=== PATIENT | female | born 1955 | race Caucasian/White ===

== ENCOUNTER → 2016-06-24 | Outpatient (CLI) | payer OTHER ==
[~2016-06-24] MED LIST: ASPI81TA28 PO; CHOL100010 PO; CLX20 PO; CRG3125 PO; CTP2 PO; GLC5 PO; LEVO100T7 PO; LISI40TA PO; LPT40 PO; METF-384 PO; MULT-190 PO; NTRSLP4 SL; NYSTCRE32 TOP; PLV75 PO; REPA1TAB10 PO; SIMV40TA4 PO
--- NOTE | 2016-06-27 13:48 | MAMMOGRAPHY REPORT ---
BILATERAL DIGITAL SCREENING MAMMOGRAM TOMOSYNTHESIS WITH CAD: 06/24/2016 TECHNIQUE: Breast tomosynthesis in addition to standard 2D mammography was performed. Current study was also evaluated with a Computer Aided Detection (CAD) system. COMPARISON: Comparison is made to exams dated: 06/22/2015 mammogram, 06/17/2013 mammogram, 06/14/2012 mammogram, 06/08/2010 mammogram, 06/19/2014 mammogram, and 06/09/2011 mammogram - [facility]. BREAST COMPOSITION: The tissue of both breasts is almost entirely fatty. FINDINGS: No suspicious masses, calcifications, or areas of architectural distortion are noted in e ither breast. There has been no significant interval change compared to prior exams. Scattered bilat eral benign-appearing calcifications are not significantly changed. IMPRESSION: ACR BI-RADS CATEGORY 2: BENIGN There is no mammographic evidence of malignancy. A 1 year screening mammogram is recommended. The p atient will receive written notification of the results. Approximately 10% of breast cancers are not detected with mammography. A negative mammographic repor t should not delay biopsy if a clinically suggestive mass is present. Loraine Beavers M.D. ah/:06/24/2016 13:46:14 Gas Main Fitter Helper: Shante KIMBROUGH(Jessica)(Talib), [facility] letter sent: Normal 1/2 BI-RADS Code: ACR BI-RADS Category 2: Benign
== END | disposition home or self-care (01) ==
LOC: C.MAMM 08:18
PROVIDERS: ATTEND Student in an Organized Health Care Education/Training Program
DX: Z12.31 Encounter for screening mammogram for malignant neoplasm of breast (principal)

== ENCOUNTER → 2017-06-26 | Outpatient (CLI) | payer OTHER ==
--- NOTE | 2017-06-26 15:40 | MAMMOGRAPHY REPORT ---
BILATERAL DIGITAL SCREENING MAMMOGRAM TOMOSYNTHESIS WITH CAD: 06/26/2017 CLINICAL HISTORY: Routine screening. Patient has no complaints. TECHNIQUE: Breast tomosynthesis in addition to standard 2D mammography was performed. Current study was also evaluated with a Computer Aided Detection (CAD) system. COMPARISON: Comparison is made to exams dated: 06/24/2016 mammogram, 06/22/2015 mammogram, 06/19/2014 ma mmogram, 06/17/2013 mammogram, 06/14/2012 mammogram, and 06/09/2011 mammogram - [facility]. BREAST COMPOSITION: The tissue of both breasts is almost entirely fatty. FINDINGS: No suspicious mass, architectural distortion or cluster of suspicious microcalcifications is seen. There are benign-appearing calcifications most numerous in the medial aspect of each breast . IMPRESSION: ACR BI-RADS CATEGORY 1: NEGATIVE There is no mammographic evidence of malignancy. A 1 year screening mammogram is recommended. The pa tient will receive written notification of the results. Approximately 10% of breast cancers are not detected with mammography. A negative mammographic report should not delay biopsy if a clinically suggestive mass is present. Ángela Enriquez M.D. ay/:06/26/2017 15:13:03 Human Relations Professor: Margie KIMBROUGH(Jessica)(Talib)(BD), [facility] letter sent: Normal 1/2 BI-RADS Code: ACR BI-RADS Category 1: Negative
== END | disposition home or self-care (01) ==
LOC: C.MAMM 10:09
PROVIDERS: ATTEND Student in an Organized Health Care Education/Training Program
DX: I21.4 Non-ST elevation (NSTEMI) myocardial infarction (principal); I25.10 Atherosclerotic heart disease of native coronary artery without angina pectoris

== ENCOUNTER 2019-02-11 11:16 | Inpatient (IN) ==
--- OUTSIDE RECORDS SUMMARY | 2019-02-11 11:19 | External Medical Summary | Continuity of Care Document ---
:1955 Author Name [place], Provider Address Unavailable Unavailable , Care Team Providers Name Role Phone Silke CLEMENTE M.D., Jose De Jesus Santiago Unavailable [email or web address] Vanna Montesinos PA-C Unavailable [email or web address] Jack Carrasco PA-C Unavailable [email or web address] Mahi Cummins M.D. Unavailable [email or web address] CHYNA EDOUARD M.D., Robinson Unavailable Unavailable Unavailable Unavailable Unavailable Problems Diverticulosis of colon (562.10) (K57.30) Stroke syndrome Hyperlipidemia (272.4) (E78.5) Recurrent aphthous ulcer (528.2) (K12.0) Arteriosclerotic cardiovascular disease (ASCVD) (429.2) (I25 .10) Ovarian cyst (620.2) (N83.20) Encounter for routine gynecological examination (V72.31) (Z0 1.419) Obesity (278.00) (E66.9) Hypertension (401.9) (I10) Oral thrush (112.0) (B37.0) Anxiety (300.00) (F41.9) Urinary urgency (788.63) (R39.15) Nephrolithiasis (592.0) (N20.0) Hypothyroidism (244.9) (E03.9) Diabetes mellitus (250.00) (E11.9) Vaginitis (616.10) (N76.0) Allergies and Adverse Reactions No Known Drug Allergies (Allergy) Medications Levothyroxine Sodium 75 MCG Oral Tablet; TAKE 1 TABLET DAILY. EDITH Montesinos Quantity: 90 Refills: 1 hydroCHLOROthiazide 12.5 MG Oral Tablet; TAKE 1 TABLET DAILY. EDITH Montesinos Quantity: 90 Refills: 1 Lisinopril 5 MG Oral Tablet; Take 1 tablet daily ALEXANDRIA Montesinos Quantity: 90 Refills: 1 metFORMIN HCl - 500 MG Oral Tablet; TAKE 1 TABLET TWICE JERROD Y. Refills: 0 Aspirin 325 MG Oral Tablet; Take 1 tablet daily Refills: 0 Simvastatin 40 MG Oral Tablet; TAKE 1 TABLET Bedtime EDITH Brown Quantity: 90 A. Refills: 0 NovoLOG SOLN; Novolog sliding scale (goal of 100-130, correc tion factor of 20) Refills: 0 LORazepam 0.5 MG Oral Tablet; take 1tab 1/2 hour prior to procedure..august repeat dose immediately before procedure EDITH Carrasco Start: 15-Mar-2010 Quantity: 2 A. Refills: 0 BD Pen Needle Mini U/F 31G X 5 MM; USE DIRECTED. Refills: 0 Plavix 75 MG Oral Tablet; TAKE 1 TABLET DAILY. Refills: 0 glipiZIDE 10 MG Oral Tablet; Take 1 tablet twice daily Refills: 0 Lantus 100 UNIT/ML Subcutaneous Solution; INJECT 22 UNIT Bed time Refills: 0 OneTouch UltraSoft Lancets MISC; check blood sugar TID Refills: 0 OneTouch Ultra Blue STRP; TEST 3 TIMES DAILY. Refills: 0 Dexamethasone 0.5 MG/5ML Oral Solution; 5ml po swish a nd spit twice per day Elma Edouard III Start: 05-Apr-2010 Quantity: 300 Refills: 1 Procedures History of Tonsillectomy With Adenoidectomy Status: Completed History of Oral Surgery Tooth Extraction Status: Completed Immunizations Influenza Comments:approximate ly [id number] Diphtheria-Tetanus Toxoids 2-5 LFU Intramuscular Injectable Comments:approximately [id number] Family History Sister Family history of Cardiomyopathy Status: Active Mother Family history of Renal Failure Status: Active Family history of Diabetes Mellitus (V18.0) Status: Active Family history of Hypertension (V17.49) Status: Active Father Family history of Hypertension (V17.49) Status: Active aunt Family history of Breast Cancer (V16.3) Status: Active Social History - Smoking Status Unknown if ever smoked Plan of Treatment Planned Observations Planned Goals not documented Results No Known Results Results not documented
--- NOTE | 2019-02-11 11:46 | CT Scan Report ---
CT head/brain wo con CT DOSE: 537.48 mGy.cm HISTORY: Mental status change. Stroke. Stroke Alert TECHNIQUE: Multiaxial CT images of the head were performed without the use of intravenous contrast. A dose lowering technique was utilized adhering to the principles of ALARA. Comparison: 02/19/2018 Findings: Moderate mucosal thickening all major sinuses. Mastoid sinuses are clear. The calvarium and skull base are intact. The ventricles and sulci are within normal limits. There is no mass, hematoma , midline shift, or acute infarct. Impression: No acute intracranial abnormality. Moderate mucosal thickening of all major sinuses. The above report was generated using voice recognition software. It may contain grammatical, syntax or spelling errors. Electronically signed by: Gurvinder Vee M.D. 02/11/2019 11:45 AM
[2019-02-11 12:00] LABS: Hematocrit (blood only) 37.4 % (37-47); Hemoglobin 12.5 g/dL (12.0-16.0); Mean Corpuscular Hemoglobin 27.3 pg (25-34); Mean Corpuscular Hgb Conc 33.4 g/dL (32-36); Mean Corpuscular Volume 81.7 fL (80-100); Mean Platelet Volume 10.6 fL (7.4-10.4); Platelet Count 156 K/uL (130-400); RDW Coefficient of Variation 15.5 % (11.5-14.5); RDW Standard Deviation 45.9 fL (36.4-46.3); Red Blood Count 4.58 M/uL (4.2-5.4); White Blood Count 6.17 K/uL (4.8-10.8)
--- NOTE | 2019-02-11 12:05 | XRay Report ---
XR chest 1V portable CLINICAL HISTORY: 63 years-old Female presenting with stroke alert. TECHNIQUE: Portable upright AP view of the chest was obtained. COMPARISON: 02/19/2018. FINDINGS: Atherosclerosis of the aortic arch. Cardiac silhouette enlarged. Mild pulmonary vascular prominence. Mildly low lung volumes. No focal opacity. No large effusion or pneumothorax. Osseous structures norm al. Upper abdomen normal. IMPRESSION: 1. Cardiomegaly with mild volume overload. No advanced congestive change or pulmonary edema. No sign ificant change from prior. Electronically signed by: Elliot Lovelace M.D. 02/11/2019 12:03 PM
[2019-02-11 12:11] LABS: iSTAT Creatinine 1.4 mg/dl (0.6-1.3); iSTAT Hemoglobin 12.6 g/dl (12.0-16.0); iSTAT Ionized Calcium 1.16 mmol/l (1.12-1.32); iSTAT Potassium 4.3 mEq/L (3.3-5.0)
[2019-02-11 12:16] LABS: Partial Thromboplastin Ratio 0.9; Partial Thromboplastin Time 24.8 Seconds (21.0-31.0); Prothrombin Time 10.5 Seconds (9.0-12.0)
[2019-02-11 12:17] LABS: Albumin Level 3.2 gm/dl (3.4-5.0); Calcium 8.4 mg/dl (8.5-10.1); Creatinine Clr Calc Pharmacy 45.5 ml/min; Est GFR (African American) 43.6; Est GFR (Non-African American) 37.6; Magnesium 1.9 mg/dl (1.8-2.4); Potassium 4.2 mmol/L (3.5-5.1)
[2019-02-11 12:19] LABS: Albumin Globulin Ratio 0.7 (0.9-2); Bilirubin,Total 0.3 mg/dl (0.2-1); Globulin 4.3 gm/dl (2.5-4.0); Total Protein 7.5 gm/dl (6.4-8.2)
[2019-02-11] MEDS ORDERED: OPTIRAY 320 125ml IV PRN (13:27)
[2019-02-11] MEDS ORDERED: LORazepam 2 MG/4 ML VIAL ONE (13:32)
[2019-02-11] MEDS ORDERED: LORazepam 1 MG/2 ML VIAL IV STA (13:35)
--- NOTE | 2019-02-11 13:42 | CT Scan Report ---
HEAD & NECK CTA HISTORY: aphasia, slurred speech TECHNIQUE: Multiaxial CT images of the head were performed following the intravenous administration o f contrast to evaluate the major cerebral vessels. Multiaxial CT images of the neck were also perform ed following the intravenous administration of contrast to evaluate the major cervical vessels. Maxim um intensity projection images were also obtained. A dose lowering technique was utilized adhering to the principles of ALARA. COMPARISON: Head CT 02/11/2019. FINDINGS: There is no mass, hematoma, midline shift, or acute infarct. Visualized intracranial internal carotid arteries, distal vertebral arteries, and basilar artery are widely patent. There is no significant s tenosis, occlusion, or aneurysm seen within the bilateral ACAs, MCAs, or director digital communications. Moderate mucosal thick ening within the paranasal sinuses. The aortic arch and proximal great vessels are widely patent. There is no significant stenosis, occ lusion, or dissection identified within the bilateral common carotid, internal carotid, or vertebral arteries. Mild calcified plaque within the right carotid bulb. IMPRESSION: 1. No significant stenosis, occlusion, or aneurysm within the [place]. 2. No significant stenosis, occlusion, or dissection identified within the carotid or vertebral arter ies. Electronically signed by: Stalin Rojo M.D. 02/11/2019 1:40 PM
--- NOTE | 2019-02-11 13:42 | CT Scan Report ---
HEAD & NECK CTA HISTORY: aphasia, slurred speech TECHNIQUE: Multiaxial CT images of the head were performed following the intravenous administration o f contrast to evaluate the major cerebral vessels. Multiaxial CT images of the neck were also perform ed following the intravenous administration of contrast to evaluate the major cervical vessels. Maxim um intensity projection images were also obtained. A dose lowering technique was utilized adhering to the principles of ALARA. COMPARISON: Head CT 02/11/2019. FINDINGS: There is no mass, hematoma, midline shift, or acute infarct. Visualized intracranial internal carotid arteries, distal vertebral arteries, and basilar artery are widely patent. There is no significant s tenosis, occlusion, or aneurysm seen within the bilateral ACAs, MCAs, or elevator serviceman. Moderate mucosal thick ening within the paranasal sinuses. The aortic arch and proximal great vessels are widely patent. There is no significant stenosis, occ lusion, or dissection identified within the bilateral common carotid, internal carotid, or vertebral arteries. Mild calcified plaque within the right carotid bulb. IMPRESSION: 1. No significant stenosis, occlusion, or aneurysm within the [place]. 2. No significant stenosis, occlusion, or dissection identified within the carotid or vertebral arter ies. Electronically signed by: Stalin Rojo M.D. 02/11/2019 1:40 PM
[2019-02-11] MEDS ORDERED: GADOBUTROL 65ML VIAL IV PRN (14:16)
--- NOTE | 2019-02-11 14:25 | Magnetic Resonance Report ---
Brain MRI WITH AND WITHOUT CONTRAST HISTORY: expressive aphasia, slurred speech TECHNIQUE: Multiplanar multisequence MRI of the brain was performed both before and after the intrave nous administration of contrast. COMPARISON STUDY: Head CT 02/11/2019. Brain MRI 12/06/2013. FINDINGS: A few small foci of restricted diffusion seen within the left posterior temporal lobe and l eft parietal lobe consistent with acute infarcts. The midline structures are intact. A few small scat tered foci of T2 hyperintensity seen within the periventricular white matter. These are nonspecific b ut favor mild microvascular ischemic change. There is no mass, hematoma, midline shift. Moderate muco anne thickening within the paranasal sinuses. The mastoid air cells are clear. Old lacunar infarcts wi thin the left cerebellar hemisphere. The major vascular flow voids at the skull base are well-maintai danny. No abnormal enhancement. IMPRESSION: A few small scattered foci of restricted diffusion seen within the left posterior temporal lobe and l eft parietal lobe consistent with acute infarcts. Electronically signed by: Stalin Rojo M.D. 02/11/2019 2:24 PM
[2019-02-11] MEDS ORDERED: ASPIRIN CHEW 324 MG PO STA (14:32)
--- NOTE | 2019-02-11 16:28 | History & Physical Report ---
Date of Service February 11, 2019 Assessment & Plan (1) Stroke: Patient presented with expressive aphasia. Head CT negative. CTA of cervical and intracranial vessels showed atherosclerosis without significant stenosis. MRI demonstrated ischemic infarcts of left parietal and temporal lobes. EKG demonstrates normal sinus rhythm. Patient has history of TIAs and takes clopidogrel. ED physician discussed case with Neurology. Thrombolytic therapy not recommended due to low NIH stroke score and improving symptoms. Dual platelet therapy with aspirin and clopidogrel recommended. Continue statin. Continue folic acid for hyperhomocystinemia. Allow permissive hypertension. Monitor for arrhythmias. Check echocardiogram. Outpatient cardiac monitoring. Check lipid profile. PT/OT/MICROFABRICATION ENGINEER MANAGER evaluations. Consult Neurology. (2) Coronary artery disease: No cardiac symptoms. Continue antiplatelet therapy, carvedilol, statin. (3) Hypertension: Usually managed with carvedilol, clonidine, lisinopril. Allow permissive hypertension for 24-48 hours in setting of acute ischemic infarcts. Continue carvedilol. Hold clonidine and lisinopril. Follow blood pressures and titrate therapy. (4) CKD (chronic kidney disease), stage III: Serum creatinine 1.46. Follow. (5) Diabetes mellitus type 2, controlled, with complications: Random glucose in ED 210. Check hemoglobin A1c. Hold oral agents during hospital stay. Lantus/NovoLog per protocol. (6) Dyslipidemia: Check lipid profile. Continue atorvastatin. (7) Hyperhomocysteinemia: Continue folic acid. (8) DVT prophylaxis: Subcutaneous heparin. Ambulate. (9) Discharge planning issues: Anticipated discharge to home. Family Medicine follow-up with Dr. Misti Zavaleta. History of Present Illness Chief Complaint: difficulty speaking Primary Care Provider: Misti Zavaleta DO 63-year-old female followed by Dr. Misti Zavaleta for Family Medicine. History of coronary artery disease with non-ST elevation NE in 2015, TIAs, hypertension, dyslipidemia, hyperhomocystinemia, diabetes mellitus type 2, and other problems as noted below. She was in her usual state of health until this morning around 1015 when she developed difficulty speaking. Symptoms associated with left-sided headache. No visual changes, facial palsy, focal weakness of upper or lower extremities. EMS summoned. Brought to ED for further evaluation and management. Head CT negative. MRI showed ischemic infarcts in left parietal temporal lobe. ED provider discussed case with Neurology who recommended adding aspirin to clopidogrel. Thrombolytic therapy was not recommended. Patient passed dysphagia screen in the ED. Allergies Allergy/AdvReac Type Severity Reaction Status Date / Time amoxicillin [From Augmentin] Allergy Nausea Unverified 02/11/19 12:21 clavulanic acid Allergy Nausea Unverified 02/11/19 12:21 [From Augmentin] Home Medications Home Medications Medication Instructions Recorded Confirmed Type C,E,zinc,copper [id number] 1 cap PO DAILY 02/19/18 02/11/19 History [Ocuvite Adult 50 Plus] atorvastatin 80 mg PO QPM 02/19/18 02/11/19 History carvedilol 3.125 mg PO BID 02/19/18 02/11/19 History cholecalciferol (vitamin D3) 2,000 unit PO DAILY 02/19/18 02/11/19 History [Vitamin D3] citalopram [Celexa] 20 mg PO DAILY 02/19/18 02/11/19 History clonidine HCl 0.2 mg PO BID 02/19/18 02/11/19 History cyanocobalamin (vitamin B-12) 500 mcg PO DAILY 02/19/18 02/11/19 History [Vitamin B-12] folic acid 800 mcg PO DAILY 02/19/18 02/11/19 History glipizide 2.5 mg PO DAILY 02/19/18 02/11/19 History lisinopril 40 mg PO DAILY 02/19/18 02/11/19 History nitroglycerin 0.4 mg SUBLINGUAL DIRECTED 02/19/18 02/11/19 History nystatin-triamcinolone 1 applic TOPICAL BID 02/19/18 02/11/19 History pyridoxine (vitamin B6) [Vitamin 100 mg PO DAILY 02/19/18 02/11/19 History B-6] repaglinide [Prandin] 2 mg PO DAILY 02/19/18 02/11/19 History clopidogrel [Plavix] 75 mg PO DAILY 02/11/19 02/11/19 History empagliflozin [Jardiance] 25 mg PO DAILY 02/11/19 02/11/19 History levothyroxine 100 mcg PO DAILY 02/11/19 02/11/19 History metformin 500 mg PO BID 02/12/19 02/12/19 History Past Med/Surg History Medical History Hyperhomocysteinemia (Chronic) Hypothyroidism (Chronic) Vitamin D deficiency (Chronic) CKD (chronic kidney disease), stage III (Chronic) Dyslipidemia (Chronic) Diabetes mellitus type 2, controlled, with complications (Chronic) Coronary artery disease (Chronic) CVA (cerebral infarction) (Resolved) Hypertension (Chronic) Diabetes (Chronic) Amaurosis fugax of left eye (Resolved 12/06/13) Hypertension (Chronic) NSTEMI (non-ST elevation myocardial infarction) (Resolved) TIA (transient ischemic attack) CVA (cerebral vascular accident) (Resolved) Myocardial infarction (Resolved) Surgical History S/P tonsillectomy (Chronic) Family History Mother Diabetes Hypertension Father Prostate cancer Sister Heart disease cardiomyopathy Social History Preferred Language: Yakut Communication Ability: Impaired [place]man Required: No Beliefs That Will Affect Care: None marital status: Current Living Situation: Spouse current occupational status: unemployed Other Information That Helps Us Care for You: No Feels Safe at Home: Yes Safety Concerns: Feels Safe At This Time Smoking Status: Never smoker Hx Substance Use: No Review of Systems Constitutional: no fever and no weight loss Eyes: no diplopia and no worsening vision Ear, Nose, Mouth, Throat: no nasal congestion, no sinus pain/pressure and no sore throat Respiratory: no cough and no dyspnea Cardiovascular: no chest pain, no palpitations and no edema Gastrointestinal: no nausea, no vomiting, no constipation, no diarrhea/loose stools, no blood in stools and no melena Genitourinary: no dysuria and no hematuria Musculoskeletal: no joint pain and no myalgia Integumentary: no rash and no new lesions Neurologic: as per Subjective / HPI Endocrine: no polydipsia and no polyuria Hematologic / Lymphatic: + easy bruising; no easy bleeding and no lymphadenopathy Physical Exam Constitutional: WD/WN, vitals as above no acute distress Eyes: PERRL, conjunctivae normal, anicteric sclerae ENMT: external ear and nose normal, oropharynx normal Neck: trachea midline, no thyromegaly Respiratory: normal respiratory effort, lungs clear to auscultation Cardiovascular: Rate/Rhythm: regular rate Heart Sounds: + gallop (S4) and + murmur (I/ sys murmur LSB); no cardiac rub Vessels: no JVD Extremities: normal capillary refill; no calf tenderness and no edema Gastrointestinal (Abdomen): normal bowel sounds, soft, nontender, no hepatosplenomegaly Musculoskeletal: Head/Neck/Chest: neck supple Extremities: strength 5/5 throughout; no cyanosis and no clubbing Skin: no rashes, warm and dry Neurologic: alert PERRL, EOMI no facial palsy expressive aphasia no dysarthria tongue midline motor strength upper and lower extremities 5/5 bilaterally patellar DTR's 1/2 bilaterally plantar reflexes downgoing bilaterally no difficulty with finger to nose or heel to aceves bilaterally Psychiatric: Orientation: alert Affect: + anxious affect Lymphatic: no cervical lymphadenopathy Results & Data Vital Signs (Past 12 Hours) Vital Signs Temp Pulse Resp BP Pulse Ox 02/11/19 15:30 61 95 02/11/19 15:24 64 13 182/97 H 97 02/11/19 15:23 98 02/11/19 13:30 58 L 16 02/11/19 13:28 61 29 H 172/82 H 02/11/19 12:30 58 L 23 120/66 93 02/11/19 12:18 60 25 H 120/66 92 02/11/19 11:43 67 22 130/70 95 02/11/19 11:18 36.6 C 68 20 195/94 H 98 Laboratory Results Laboratory Results - last 24 hr 02/11/19 02/11/19 02/11/19 11:32 11:49 11:49 WBC 6.17 RBC 4.58 Hgb 12.5 POC Hgb Hct 37.4 POC Hct MCV 81.7 MCH 27.3 MCHC 33.4 RDW Std Deviation 45.9 RDW Coeff of Doreen 15.5 H Plt Count 156 MPV 10.6 H PT 10.5 INR 1.0 APTT 24.8 PTT Ratio 0.9 POC Sodium Sodium POC Potassium Potassium POC Chloride Chloride Carbon Dioxide POC Total CO2 Anion Gap POC Anion Gap POC BUN BUN Creatinine POC Creatinine Est Cr Clr Drug Dosing Est GFR ( Amer) Est GFR (Non-Af Amer) BUN/Creatinine Ratio Glucose POC Glucose 217 H POC Glucose (other) Calcium POC Ioniz Calcium Tamara Magnesium Total Bilirubin AST ALT Alkaline Phosphatase Total Protein Albumin Globulin Albumin/Globulin Ratio 02/11/19 02/11/19 11:49 11:59 WBC RBC Hgb POC Hgb 12.6 Hct POC Hct 37 MCV MCH MCHC RDW Std Deviation RDW Coeff of Doreen Plt Count MPV PT INR APTT PTT Ratio POC Sodium 141 Sodium 140 POC Potassium 4.3 Potassium 4.2 POC Chloride 108 Chloride 110 H Carbon Dioxide 23 POC Total CO2 23 L Anion Gap 7.0 POC Anion Gap 16.0 POC BUN 25 H BUN 23 H Creatinine 1.46 H POC Creatinine 1.4 H Est Cr Clr Drug Dosing 45.5 Est GFR ( Amer) 43.6 Est GFR (Non-Af Amer) 37.6 BUN/Creatinine Ratio 16.0 Glucose 210 H POC Glucose POC Glucose (other) 217 H Calcium 8.4 L POC Ioniz Calcium Tamara 1.16 Magnesium 1.9 Total Bilirubin 0.3 AST 14 L ALT 23 Alkaline Phosphatase 84 Total Protein 7.5 Albumin 3.2 L Globulin 4.3 H Albumin/Globulin Ratio 0.7 L Diagnostic Findings PORTABLE CHEST X-RAY XR chest 1V portable FINDINGS: Atherosclerosis of the aortic arch. Cardiac silhouette enlarged. Mild pulmonary vascular prominence. Mildly low lung volumes. No focal opacity. No large effusion or pneumothorax. Osseous structures normal. Upper abdomen normal. IMPRESSION: 1. Cardiomegaly with mild volume overload. No advanced congestive change or pulmonary edema. No significant change from prior. Electronically signed by: Elliot Lovelace M.D. 02/11/2019 12:[address] HEAD Findings: Moderate mucosal thickening all major sinuses. Mastoid sinuses are clear. The calvarium and skull base are intact. The ventricles and sulci are within normal limits. There is no mass, hematoma, midline shift, or acute infarct. Impression: No acute intracranial abnormality. Moderate mucosal thickening of all major sinuses. Electronically signed by: Gurvinder Vee M.D. 02/11/2019 11:45 AM HEAD & NECK CTA FINDINGS: There is no mass, hematoma, midline shift, or acute infarct. Visualized intracranial internal carotid arteries, distal vertebral arteries, and basilar artery are widely patent. There is no significant stenosis, occlusion, or aneurysm seen within the bilateral ACAs, MCAs, or html web developer. Moderate mucosal thickening within the paranasal sinuses. The aortic arch and proximal great vessels are widely patent. There is no significant stenosis, occlusion, or dissection identified within the bilateral common carotid, internal carotid, or vertebral arteries. Mild calcified plaque within the right carotid bulb. IMPRESSION: 1. No significant stenosis, occlusion, or aneurysm within the [place]. 2. No significant stenosis, occlusion, or dissection identified within the carotid or vertebral arteries. Electronically signed by: Stalin Rojo M.D. 02/11/2019 1:40 PM MRI BRAIN FINDINGS: A few small foci of restricted diffusion seen within the left posterior temporal lobe and left parietal lobe consistent with acute infarcts. The midline structures are intact. A few small scattered foci of T2 hyperintensity seen w ithin the periventricular white matter. These are nonspecific but favor mild microvascular ischemic change. There is no mass, hematoma, midline shift. Moderate mucosal thickening within the paranasal sinuses. The mastoid air cells are clear. Old lacunar infarcts within the left cerebellar hemisphere. The major vascular flow voids at the skull base are well-maintained. No abnormal enhancement. IMPRESSION: A few small scattered foci of restricted diffusion seen within the left posterior temporal lobe and left parietal lobe consistent with acute infarcts. Electronically signed by: Stalin Rojo M.D. 02/11/2019 2:24 PM ECG Additional Comments: EKG performed at 11:23 reviewed and demonstrated NSR at 70 / min, no acute changes. Code Status & VTE Plan Code Status No living will. Full code. VTE Prophylaxis Plan VTE Prophylaxis will be ordered: Yes (1) Stroke CVA mechanism: unspecified Qualified Code(s): I63.9 - Cerebral infarction, unspecified
[2019-02-11] MEDS ORDERED: PHARMACIST DISCHARGE MED REC CONSULT PRN (16:37)
[2019-02-11] MEDS ORDERED: NITROGLYCERIN SL 0.4 MG/TAB TAB SL PRN (16:37)
[2019-02-11] MEDS ORDERED: ACETAMINOPHEN 325 MG TAB PO PRN (16:37)
[2019-02-11] MEDS ORDERED: ONDANSETRON INJ 2 MG/ML 2 ML VIAL IV PRN (16:37)
--- NOTE | 2019-02-11 16:50 | Neurology Consultation ---
Date of Consultation February 11, 2019 Assessment & Plan (1) Expressive aphasia: 1. MRI brain- appears to be embolic strokes small scattered left occiptal/parital 2. CTA head and neck- no signifcant stenosis 3. TTE- not resulted 4. optimize HTN, HLD, DM LDL <70 5. no history of afib will need out patient ZIO 6. aspirin 81 mg and plavix 75 mg daily for now 7. PT/OT speech for discharge needs. further recs to follow Supervising Physician Co-Signing Physician Notes I have seen and discussed above patient with Dr Lita Arechiga, neurology. PT seen and examined. Hx of OS amaurosis approx 2013. Episode of sudden amnesia with confusion 1 year ago. 2 weeks ago suddenly confused for several minutes. Today sudden expressive language dysfunction. Hx of Rheumatic Fever. Exam notable for isolated word finding difficulty. No field cut, facial asymm or weakness, drift. Imp Cortical infarction suspicious for embolism. P Echo with bubble, monitoring, asa and Plavix at present. Risk mod. EEG, query TGA, confusional episodes. QUITA Arechiga MD History of Present Illness Reason for Consultation: CVA Requesting Physician: Pradip Manzo MD Attending Physician: Pradip Manzo MD History of Present Illness Brisa is a 63 year old female with a PMH DM, HTN, NSTEMI, who was at [employer] for breakfast and started having issues with getting her words out. She states it was very frustrating because she couldn't tell them what she wanted to talk about. Her states there was not one sided weakness, facial droop vision changes. She does not have a history of afib. The symptoms started to resolve in the ED but she was still having some word finding issues. denies CP, SOB, abdominal pain, vision changes, facial droop, N, V, swallowing issues. Allergies Allergy/AdvReac Type Severity Reaction Status Date / Time amoxicillin [From Augmentin] Allergy Nausea Unverified 02/11/19 12:21 clavulanic acid Allergy Nausea Unverified 02/11/19 12:21 [From Augmentin] Home Medications Home Medications Medication Instructions Recorded Confirmed Type C,E,zinc,copper [id number] 1 cap PO DAILY 02/19/18 02/11/19 History [Ocuvite Adult 50 Plus] atorvastatin 80 mg PO QPM 10/29/18 10/21/19 History carvedilol 3.125 mg PO BID 02/19/18 02/11/19 History cholecalciferol (vitamin D3) 2,000 unit PO DAILY 02/19/18 02/11/19 History [Vitamin D3] citalopram [Celexa] 20 mg PO DAILY 02/19/18 02/11/19 History clonidine HCl 0.2 mg PO BID 02/19/18 02/11/19 History cyanocobalamin (vitamin B-12) 500 mcg PO DAILY 02/19/18 02/11/19 History [Vitamin B-12] folic acid 800 mcg PO DAILY 02/19/18 02/11/19 History glipizide 2.5 mg PO DAILY 02/19/18 02/11/19 History lisinopril 40 mg PO DAILY 02/19/18 02/11/19 History nitroglycerin 0.4 mg SUBLINGUAL DIRECTED 02/19/18 02/11/19 History nystatin-triamcinolone 1 applic TOPICAL BID 02/19/18 02/11/19 History pyridoxine (vitamin B6) [Vitamin 100 mg PO DAILY 02/19/18 02/11/19 History B-6] repaglinide [Prandin] 2 mg PO DAILY 02/19/18 02/11/19 History clopidogrel [Plavix] 75 mg PO DAILY 02/11/19 02/11/19 History empagliflozin [Jardiance] 25 mg PO DAILY 02/11/19 02/11/19 History levothyroxine 100 mcg PO DAILY 02/11/19 02/11/19 History metformin 500 mg PO BID 02/11/19 02/11/19 History Patient History Medical History Hyperhomocysteinemia (Chronic) Hypothyroidism (Chronic) Vitamin D deficiency (Chronic) CKD (chronic kidney disease), stage III (Chronic) Dyslipidemia (Chronic) Diabetes mellitus type 2, controlled, with complications (Chronic) Coronary artery disease (Chronic) CVA (cerebral infarction) (Resolved) Hypertension (Chronic) Diabetes (Chronic) Amaurosis fugax of left eye (Resolved 12/06/13) Hypertension (Chronic) NSTEMI (non-ST elevation myocardial infarction) (Resolved) TIA (transient ischemic attack) CVA (cerebral vascular accident) (Resolved) Myocardial infarction (Resolved) Family History Other No pertinent family history Social History Preferred Language: Sammarinese Communication Ability: Impaired Clinical Research Technician Required: No Beliefs That Will Affect Care: None marital status: Current Living Situation: Spouse current occupational status: unemployed Other Information That Helps Us Care for You: No Feels Safe at Home: Yes Safety Concerns: Feels Safe At This Time Smoking Status: Never smoker Hx Substance Use: No Physical Exam Physical Exam: Physical Exam: Constitutional: appearance over nourished, healthy Ears, Nose, Mouth and Throat: mucous membranes moist, no injection and skin normal, eyes normal Cardiovascular: normal S-1 and S-2 and regular rate and rhythm Respiratory: clear to auscultation (CTA) Musculoskeletal: no peripheral edema and good distal pulses Skin: no stigmata of neurocutaneous disease noted and normal and intact Eyes: extraocular muscles intact (EOMI) and pupils equal, round and reactive to light (PERRL) NEUROLOGIC EXAMINATION: Mental status: Alert and interactive Oriented to full date and location, 2019, [facility], identifies pen, stethoscope, button, closes eye stick out tongue points to ceiling with right hand Oriented to person Speech some expressive aphasia with spontaneous conversation Cranial Nerves smile eye brow raise symmetric Reflexes: Deep tendon reflexes were symmetrical and graded 2/5. Sensory: no sensory deficits, light and cool touch Coordination: finger to nose, rapid hand movement aceves to heel intact Gait/Stance: Posture sitting up in bed Motor: Negative for pronator drift of out stretched arms with eyes closed. 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 bilaterally hip flex patellar plantar flex ext 5/5 Results & Data Vital Signs (Past 12 Hours) Vital Signs Temp Pulse Resp BP Pulse Ox 02/11/19 15:30 61 95 02/11/19 15:24 64 13 182/97 H 97 02/11/19 15:23 98 02/11/19 13:30 58 L 16 02/11/19 13:28 61 29 H 172/82 H 02/11/19 12:30 58 L 23 120/66 93 02/11/19 12:18 60 25 H 120/66 92 02/11/19 11:43 67 22 130/70 95 02/11/19 11:18 36.6 C 68 20 195/94 H 98 Laboratory Results Abnormal lab results 02/11/19 02/11/19 02/11/19 Range/Units 11:32 11:49 11:49 RDW Coeff of Doreen 15.5 H (11.5-14.5) % MPV 10.6 H (7.4-10.4) fL Chloride 110 H (98-107) mmol/L POC Total CO2 (24-31) mEq/l POC BUN (7-18) mg/dl BUN 23 H (7-18) mg/dl Creatinine 1.46 H (0.6-1.2) mg/dl POC Creatinine (0.6-1.3) mg/dl Glucose 210 H (70-99) mg/dl POC Glucose 217 H (70-99) POC Glucose (other) (70-99) mg/dl Calcium 8.4 L (8.5-10.1) mg/dl AST 14 L (15-37) U/L Albumin 3.2 L (3.4-5.0) gm/dl Globulin 4.3 H (2.5-4.0) gm/dl Albumin/Globulin Ratio 0.7 L (0.9-2) 02/11/19 Range/Units 11:59 RDW Coeff of Doreen (11.5-14.5) % MPV (7.4-10.4) fL Chloride (98-107) mmol/L POC Total CO2 23 L (24-31) mEq/l POC BUN 25 H (7-18) mg/dl BUN (7-18) mg/dl Creatinine (0.6-1.2) mg/dl POC Creatinine 1.4 H (0.6-1.3) mg/dl Glucose (70-99) mg/dl POC Glucose (70-99) POC Glucose (other) 217 H (70-99) mg/dl Calcium (8.5-10.1) mg/dl AST (15-37) U/L Albumin (3.4-5.0) gm/dl Globulin (2.5-4.0) gm/dl Albumin/Globulin Ratio (0.9-2) Diagnostic Findings CT head-No acute intracranial abnormality. Moderate mucosal thickening of all major sinuses. CTA head and neck- No significant stenosis, occlusion, or aneurysm within the [place]. No significant stenosis, occlusion, or dissection identified within the carotid or vertebral arteries. MRI brain -A few small scattered foci of restricted diffusion seen within the left posterior temporal lobe and left parietal lobe consistent with acute infarcts.
--- NOTE | 2019-02-11 17:22 | Emergency Department Note ---
Entered by Gisela Evans acting as a scribe for History of Present Illness General Chief complaint: Stroke/CVA Symptoms Stated complaint: MEMORY LAPSE, STROKE HISTORY Time Seen by Provider: 02/11/19 11:24 Source: patient and family History of Present Illness Onset (ago): hour(s) (1 hour 20 minutes ago) Location: head Pain Consistency: + other (episode) Maximum Pain Intensity: 5 Quality: + other (stroke symptoms) Associated symptoms: + denies other symptoms (difficulty walking), + headaches and + other (gargled speech); no cough and no fever/chills (feve) The patient is a 63 year old male w/ PMHx DM, TIA, MA, and HTN who presents to the ED w/ CC of an episode stroke symptoms starting 1 hour and 20 minutes ago at 10:10 AM. The patients states that they were out to [employer] for breakfast and she was getting ready to take her medications. He states that she was trying to tell her something about their daughter, but she was speaking gargled. The patient notes that she knew what she wanted to say, but couldnt get what she wanted to say out. The patient notes that since then her speech has resolved. The patient complains of a headache. The patient notes that she started Jardiance a week ago. She notes that she is on Plavix. The patient denies cough, fevers, difficulty walking, and recent falls. Home Medications Home Medications Medication Instructions Recorded Confirmed Type C,E,zinc,copper [id number] 1 cap PO DAILY 02/19/18 02/11/19 History [Ocuvite Adult 50 Plus] atorvastatin 80 mg PO QPM 02/19/18 02/11/19 History carvedilol 3.125 mg PO BID 02/19/18 02/11/19 History cholecalciferol (vitamin D3) 2,000 unit PO DAILY 02/19/18 02/11/19 History [Vitamin D3] citalopram [Celexa] 20 mg PO DAILY 02/19/18 02/11/19 History clonidine HCl 0.2 mg PO BID 02/19/18 02/11/19 History cyanocobalamin (vitamin B-12) 500 mcg PO DAILY 02/19/18 02/11/19 History [Vitamin B-12] folic acid 800 mcg PO DAILY 02/19/18 02/11/19 History glipizide 2.5 mg PO DAILY 02/19/18 02/11/19 History lisinopril 40 mg PO DAILY 02/19/18 02/11/19 History nitroglycerin 0.4 mg SUBLINGUAL DIRECTED 02/19/18 02/11/19 History nystatin-triamcinolone 1 applic TOPICAL BID 02/19/18 02/11/19 History pyridoxine (vitamin B6) [Vitamin 100 mg PO DAILY 02/19/18 02/11/19 History B-6] repaglinide [Prandin] 2 mg PO DAILY 02/19/18 02/11/19 History clopidogrel [Plavix] 75 mg PO DAILY 02/11/19 02/11/19 History empagliflozin [Jardiance] 25 mg PO DAILY 02/11/19 02/11/19 History levothyroxine 100 mcg PO DAILY 02/11/19 02/11/19 History metformin 500 mg PO BID 02/11/19 02/11/19 History Allergies Allergy/AdvReac Type Severity Reaction Status Date / Time amoxicillin [From Augmentin] Allergy Nausea Unverified 02/11/19 12:21 clavulanic acid Allergy Nausea Unverified 02/11/19 12:21 [From Augmentin] Past Med/Surg History Medical History Hyperhomocysteinemia (Chronic) Hypothyroidism (Chronic) Vitamin D deficiency (Chronic) CKD (chronic kidney disease), stage III (Chronic) Dyslipidemia (Chronic) Diabetes mellitus type 2, controlled, with complications (Chronic) Coronary artery disease (Chronic) CVA (cerebral infarction) (Resolved) Hypertension (Chronic) Diabetes (Chronic) Amaurosis fugax of left eye (Resolved 12/06/13) Hypertension (Chronic) NSTEMI (non-ST elevation myocardial infarction) (Resolved) TIA (transient ischemic attack) CVA (cerebral vascular accident) (Resolved) Myocardial infarction (Resolved) Family History Other No pertinent family history Social History Preferred Language: [place] Communication Ability: Impaired 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 and A total of 10 systems reviewed and were otherwise negative Physical Exam Vital Signs Vital Signs - 24 hr 02/11/19 11:18 02/11/19 11:43 02/11/19 12:18 Temperature 36.6 C Temperature Source Oral Sepsis Recent Fever Within 48 Hours No Sepsis New/Unexplained Change in Mental Status No Sepsis Action Taken by Nursing No Action Required Pulse Rate 68 67 60 Pulse Rate from SpO2 Sensor 67 59 L Respiratory Rate 20 22 25 H Blood Pressure 195/94 H 130/70 120/66 Blood Pressure Mean 127 90 84 Pulse Oximetry 98 95 92 Oxygen Delivery Method Room Air 02/11/19 12:30 02/11/19 13:28 02/11/19 13:30 Temperature Temperature Source Sepsis Recent Fever Within 48 Hours Sepsis New/Unexplained Change in Mental Status Sepsis Action Taken by Nursing Pulse Rate 58 L 61 58 L Pulse Rate from SpO2 Sensor 59 L Respiratory Rate 23 29 H 16 Blood Pressure 120/66 172/82 H Blood Pressure Mean 84 112 Pulse Oximetry 93 Oxygen Delivery Method GENERAL: Well appearing, well nourished, NAD, non-toxic. Wearing glasses. EYE EXAM: Normal conjunctiva. PERRL, no anisocoria and EOM's grossly intact w/o pain. OROPHARYNX: Moist mucous membranes. Grossly normal dentition. NECK: Supple, no nuchal rigidity, no adenopathy, non-tender. No signs of meningismus. LUNGS: Clear to auscultation. Normal chest wall mechanics. HEART: NSR, no MRG. ABDOMEN: Abdomen soft, non-tender, normo-active bowel sounds, no masses, no rebound or guarding. BACK: No CVA TTP. SKIN: No rashes and no bruising. UPPER EXTREMITIES: Upper extremities are grossly normal. LOWER EXTREMITIES: No pitting edema. No calf pain. NEURO EXAM: A&O x3, cranial nerves II-XII grossly intact, normal speech, 5/5 strength throughout, no sensory deficits,good finger to nose, no pronator drift, moves all 4 extremities on command w/o issue. Course 1129: Past medical records reviewed. The patient was evaluated in room A1. A complete history and physical exam was performed. 1309: I reevaluated the patient and she is doing well. She has not had a recurrence of her symptoms. 1331: I discussed the patient's case with Dr. Mitchell- Neurology. She agrees with the treatment plan and recommends a baby aspirin if imaging as negative. She recommends bringing the patient in. 1336: I went to reevaluate the patient, but she was at MRI. 1442: I reevaluated the patient and updated her on her test results. I discussed the treatment plan with her. She verbally agrees and understands. 1500: I [facility] the [facility] He will evaluate the patient for further management. Administered Medications Gadobutrol (Gadavist 65ml) 9.5 ml IV ONCE PRN PRN Reason: Interaction Checking Stop: 02/15/19 14:15 Last Admin: 02/11/19 14:16 Dose: 9.5 ml Documented by: [id number] Ioversol (Optiray 320 125ml) 120 ml IV ONCE PRN PRN Reason: Interaction Checking Stop: 02/15/19 13:26 Last Admin: 02/11/19 13:27 Dose: 120 ml Documented by: [id number] Discontinued Medications Aspirin (Aspirin) 324 mg PO NOW STA Stop: 02/11/19 14:33 Last Admin: 02/11/19 15:21 Dose: 324 mg Documented by: [id number] Lorazepam (Ativan) 1 mg in 2 mls @ 2 mls/min IV NOW STA Stop: 02/11/19 13:36 Last Admin: 02/11/19 13:43 Dose: 2 mls/min Documented by: [id number] Lorazepam (Ativan) Confirm Administered Dose 2 mg .ROUTE .STK-MED ONE Stop: 02/11/19 13:33 Last Admin: 02/11/19 14:25 Dose: Not Given Documented by: [id number] Medical Decision Making Differential Diagnosis Differential Diagnosis includes but is not limited to ischemic Stroke, hemorrhagic stroke, bells palsy, mass, neoplasm, migraine headache, seizure, subarachnoid hemorrhage, TIA, and transient global amnesia. Medical Records Attestation: I reviewed the patient's medical records. Home Medications Current Medication List: was personally reviewed by me Laboratory Data Attestation: I reviewed the patient's lab results. Result diagrams: 02/11/19 11:49 02/11/19 11:49 Lab Results 02/11/19 02/11/19 02/11/19 Range/Units 11:32 11:49 11:49 WBC 6.17 (4.8-10.8) K/uL RBC 4.58 (4.2-5.4) M/uL Hgb 12.5 (12.0-16.0) g/dL POC Hgb (12.0-16.0) g/dl Hct 37.4 (37-47) % POC Hct (37-47) % MCV 81.7 (80-100) fL MCH 27.3 (25-34) pg MCHC 33.4 (32-36) g/dL RDW Std Deviation 45.9 (36.4-46.3) fL RDW Coeff of Doreen 15.5 H (11.5-14.5) % Plt Count 156 (130-400) K/uL MPV 10.6 H (7.4-10.4) fL PT 10.5 (9.0-12.0) Seconds INR 1.0 (0.9-1.1) APTT 24.8 (21.0-31.0) Seconds PTT Ratio 0.9 POC Sodium (135-144) mEq/L Sodium (136-145) mmol/L POC Potassium (3.3-5.0) mEq/L Potassium (3.5-5.1) mmol/L POC Chloride (101-112) mEq/L Chloride (98-107) mmol/L Carbon Dioxide (21-32) mmol/L POC Total CO2 (24-31) mEq/l Anion Gap (3-11) POC Anion Gap (16-25) mmol/L POC BUN (7-18) mg/dl BUN (7-18) mg/dl Creatinine (0.6-1.2) mg/dl POC Creatinine (0.6-1.3) mg/dl Est Cr Clr Drug Dosing ml/min Est GFR ( Amer) Est GFR (Non-Af Amer) BUN/Creatinine Ratio (10-20) Glucose (70-99) mg/dl POC Glucose 217 H (70-99) POC Glucose (other) (70-99) mg/dl Calcium (8.5-10.1) mg/dl POC Ioniz Calcium Tamara (1.12-1.32) mmol/l Magnesium (1.8-2.4) mg/dl Total Bilirubin (0.2-1) mg/dl AST (15-37) U/L ALT (12-78) U/L Alkaline Phosphatase (45-117) U/L Total Protein (6.4-8.2) gm/dl Albumin (3.4-5.0) gm/dl Globulin (2.5-4.0) gm/dl Albumin/Globulin Ratio (0.9-2) 02/11/19 02/11/19 Range/Units 11:49 11:59 WBC (4.8-10.8) K/uL RBC (4.2-5.4) M/uL Hgb (12.0-16.0) g/dL POC Hgb 12.6 (12.0-16.0) g/dl Hct (37-47) % POC Hct 37 (37-47) % MCV (80-100) fL MCH (25-34) pg MCHC (32-36) g/dL RDW Std Deviation (36.4-46.3) fL RDW Coeff of Doreen (11.5-14.5) % Plt Count (130-400) K/uL MPV (7.4-10.4) fL PT (9.0-12.0) Seconds INR (0.9-1.1) APTT (21.0-31.0) Seconds PTT Ratio POC Sodium 141 (135-144) mEq/L Sodium 140 (136-145) mmol/L POC Potassium 4.3 (3.3-5.0) mEq/L Potassium 4.2 (3.5-5.1) mmol/L POC Chloride 108 (101-112) mEq/L Chloride 110 H (98-107) mmol/L Carbon Dioxide 23 (21-32) mmol/L POC Total CO2 23 L (24-31) mEq/l Anion Gap 7.0 (3-11) POC Anion Gap 16.0 (16-25) mmol/L POC BUN 25 H (7-18) mg/dl BUN 23 H (7-18) mg/dl Creatinine 1.46 H (0.6-1.2) mg/dl POC Creatinine 1.4 H (0.6-1.3) mg/dl Est Cr Clr Drug Dosing 45.5 ml/min Est GFR ( Amer) 43.6 Est GFR (Non-Af Amer) 37.6 BUN/Creatinine Ratio 16.0 (10-20) Glucose 210 H (70-99) mg/dl POC Glucose (70-99) POC Glucose (other) 217 H (70-99) mg/dl Calcium 8.4 L (8.5-10.1) mg/dl POC Ioniz Calcium Tamara 1.16 (1.12-1.32) mmol/l Magnesium 1.9 (1.8-2.4) mg/dl Total Bilirubin 0.3 (0.2-1) mg/dl AST 14 L (15-37) U/L ALT 23 (12-78) U/L Alkaline Phosphatase 84 (45-117) U/L Total Protein 7.5 (6.4-8.2) gm/dl Albumin 3.2 L (3.4-5.0) gm/dl Globulin 4.3 H (2.5-4.0) gm/dl Albumin/Globulin Ratio 0.7 L (0.9-2) Imaging Data Radiologist's Impression: Radiology results as stated below per my review and the radiologist's interpretation: XR chest 1V portable CLINICAL HISTORY: 63 years-old Female presenting with stroke alert. TECHNIQUE: Portable upright AP view of the chest was obtained. COMPARISON: 02/19/2018. FINDINGS: Atherosclerosis of the aortic arch. Cardiac silhouette enlarged. Mild pulmonary vascular prominence. Mildly low lung volumes. No focal opacity. No large effusion or pneumothorax. Osseous structures normal. Upper abdomen normal. IMPRESSION: 1. Cardiomegaly with mild volume overload. No advanced congestive change or pulmonary edema. No significant change from prior. Electronically signed by: Elliot Lovelace M.D. 02/11/2019 12:[address] head/brain wo con CT DOSE: 537.48 mGy.cm HISTORY: Mental status change. Stroke. Stroke Alert TECHNIQUE: Multiaxial CT images of the head were performed without the use of intravenous contrast. A dose lowering technique was utilized adhering to the principles of ALARA. Comparison: 02/19/2018 Findings: Moderate mucosal thickening all major sinuses. Mastoid sinuses are clear. The calvarium and skull base are intact. The ventricles and sulci are within normal limits. There is no mass, hematoma, midline shift, or acute infarct. Impression: No acute intracranial abnormality. Moderate mucosal thickening of all major sinuses. The above report was generated using voice recognition software. It may contain grammatical, syntax or spelling errors. Electronically signed by: Gurvinder Vee M.D. 02/11/2019 11:45 AM HEAD & NECK CTA HISTORY: aphasia, slurred speech TECHNIQUE: Multiaxial CT images of the head were performed following the intravenous administration of contrast to evaluate the major cerebral vessels. Multiaxial CT images of the neck were also performed following the intravenous administration of contrast to evaluate the major cervical vessels. Maximum int ensity projection images were also obtained. A dose lowering technique was utilized adhering to the principles of ALARA. COMPARISON: Head CT 02/11/2019. FINDINGS: There is no mass, hematoma, midline shift, or acute infarct. Visualized intracranial internal carotid arteries, distal vertebral arteries, and basilar artery are widely patent. 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 Moderate mucosal thickening within the paranasal sinuses. The aortic arch and proximal great vessels are widely patent. There is no significant stenosis, occlusion, or dissection identified within the bilateral common carotid, internal carotid, or vertebral arteries. Mild calcified plaque within the right carotid bulb. IMPRESSION: 1. No significant stenosis, occlusion, or aneurysm within the [place] of [place]. 2. No significant stenosis, occlusion, or dissection identified within the carotid or vertebral arteries. Electronically signed by: Stalin Rojo M.D. 02/11/2019 1:40 PM Brain MRI WITH AND WITHOUT CONTRAST HISTORY: expressive aphasia, slurred speech TECHNIQUE: Multiplanar multisequence MRI of the brain was performed both before and after the intravenous administration of contrast. COMPARISON STUDY: Head CT 02/11/2019. Brain MRI 12/06/2013. FINDINGS: A few small foci of restricted diffusion seen within the left posterior temporal lobe and left parietal lobe consistent with acute infarcts. The midline structures are intact. A few small scattered foci of T2 hyperintensity seen within the periventricular white matter. These are nonspecific but favor mild microvascular ischemic change. There is no mass, hematoma, midline shift. Moderate mucosal thickening within the paranasal sinuses. The mastoid air cells are clear. Old lacunar infarcts within the left cerebellar hemisphere. The major vascular flow voids at the skull base are well- maintained. No abnormal enhancement. IMPRESSION: A few small scattered foci of restricted diffusion seen within the left posterior temporal lobe and left parietal lobe consistent with acute infarcts. Electronically signed by: Stalin Rojo M.D. 02/11/2019 2:24 PM ECG Data Attestation: I personally reviewed and interpreted this ECG as follows: Indication: other (stroke like symptoms) Rate (beats per minute): 66 Rhythm: normal sinus Findings: + other (normal axis, normal intervals); no ST depression, no ST el evation and no acute ischemic change Blood Pressure Blood Pressure Findings: Elevated blood pressure Blood Pressure Disposition: further management by hospitalist ARABELLA Narrative The patient is a 63 year old male w/ PMHx DM, TIA, MA, and HTN who presents to the ED w/ CC of an episode stroke symptoms starting 1 hour and 20 minutes ago at 10:10 AM. Patient was seen and evaluated at the bedside. The patient has been having what sounds like self describes stuttering TIA symptoms with expressive aphasia as well as some slurred speech. Patient is currently asymptomatic at the bedside to no code stroke was paged overhead. The patient currently is awake alert and oriented follows commands. Patient is able to answer questions about with the basic arithmetic and objects in the room. The patient did have blood work completed along with tducw-ny-wdro sugar. Xnoub-oy-tgrz sugar was 210. The patient does not take insulin. The patient did have the rest of her blood work completed a EKG which shows normal sinus rhythm. CT the head was negative. Gi andrea the initial concern I still did order advanced imaging and did speak with 1 of our neurologist who recommended getting the CT angios as well as the MRI of the brain with and without contrast. CT angios were negative. MR brain was positive for restricted diffusion within the parietal and occipital areas. Patient was ordered a full dose aspirin. I did speak the on-call hospitalist who agreed to further evaluate treat the patient. I did again reevaluate the patient the patient again is without any slurred speech or excessive aphasia at this time. I did reiterate to the patient that if she does develop any persistent symptoms or if she has worsening symptoms i.e. sensory deficits or we akness she needs to notify someone immediately. Patient was subsequently admitted to the medicine service. Impression & Plan Expressive aphasia, Stroke, Hyperglycemia, Hypocalcemia Discharge Plan Visit Data *Final* Discharge Date/Time: 02/11/19 16:11 Chief Complaint: Stroke/CVA Symptoms Stated Complaint: MEMORY LAPSE, STROKE HISTORY ED Provider: Homero Fox Discharge Problem: Expressive aphasia, Stroke, Hyperglycemia, Hypocalcemia Patient Disposition: Admitted As Inpatient Discharge Instructions Interventions: ED Discharge Assessment Last Done: 02/11/19 16:11 Discharge Problem: Stroke Qualifiers: CVA mechanism: unspecified Qualified Code(s): I63.9 - Cerebral infarction, unspecified The scribe's documentation has been prepared under my direction and personally reviewed by me in its entirety. I confirm that the note above accurately reflects all work, treatment, procedures, and medical decision making performed by me.
[2019-02-11] MEDS: CARVEDILOL 3.125 MG TAB PO SCH (20:38)
[2019-02-11] MEDS: HEPARIN SOD 5,000 UNIT/0.5 ML VIAL SQ SCH (20:43)
[2019-02-11] MEDS ORDERED: ATORVASTATIN 40 MG TAB PO SCH (21:00)
[2019-02-12] MEDS: HEPARIN SOD 5,000 UNIT/0.5 ML VIAL SQ SCH ×2 (05:44→13:33)
[2019-02-12] MEDS ORDERED: LEVOTHYROXINE SODIUM 100 MCG TABLET PO SCH (06:30)
[2019-02-12 07:21] LABS: Basophils # (auto) 0.03 K/uL (0-0.2); Basophils % (auto) 0.5 %; Hematocrit (blood only) 36.3 % (37-47); Hemoglobin 11.7 g/dL (12.0-16.0); Lymphocytes # (auto) 2.19 K/uL (1.2-3.4); Lymphocytes % (auto) 38.1 %; Mean Corpuscular Hemoglobin 26.3 pg (25-34); Mean Corpuscular Hgb Conc 32.2 g/dL (32-36); Mean Corpuscular Volume 81.6 fL (80-100); Mean Platelet Volume 10.3 fL (7.4-10.4); Monocytes # (auto) 0.34 K/uL (0.11-0.59); Monocytes % (auto) 5.9 %; Neutrophils # (auto) 2.79 K/uL (1.4-6.5); Neutrophils % (auto) 48.5 %; Platelet Count 146 K/uL (130-400); RDW Coefficient of Variation 15.7 % (11.5-14.5); Red Blood Count 4.45 M/uL (4.2-5.4); White Blood Count 5.75 K/uL (4.8-10.8)
[2019-02-12 07:56] LABS: BUN Creatinine Ratio 19.2 (10-20); Calcium 8.6 mg/dl (8.5-10.1); Creatinine Clr Calc Pharmacy 51.1 ml/min; Est GFR (African American) 49.7; Est GFR (Non-African American) 42.9; Potassium 4.1 mmol/L (3.5-5.1)
[2019-02-12] MEDS: CARVEDILOL 3.125 MG TAB PO SCH (08:01)
[2019-02-12] MEDS ORDERED: ASPIRIN 81 MG ECTAB PO SCH (09:00)
[2019-02-12] MEDS ORDERED: CITALOPRAM 20 MG TAB PO SCH (09:00)
[2019-02-12] MEDS ORDERED: CYANOCOBALAMIN 500 MCG TABLET (VITAMIN B-12) PO SCH (09:00)
[2019-02-12] MEDS ORDERED: PYRIDOXINE HCL 50 MG TAB PO SCH (09:00)
[2019-02-12] MEDS ORDERED: CLOPIDOGREL BISULFATE 75 MG TAB PO SCH (09:00)
[2019-02-12] MEDS ORDERED: FOLIC ACID 400 MCG TAB PO SCH (09:00)
[2019-02-12 10:07] LABS: Estimated Average Glucose 157 mg/dl; Hemoglobin A1C 7.1 % (4.5-5.6)
--- NOTE | 2019-02-12 15:07 | Neurology Progress Note ---
Date of Service February 12, 2019 Assessment & Plan (1) Expressive aphasia: 1. MRI brain- appears to be embolic strokes small scattered left occipital/parietal 2. CTA head and neck- no significant stenosis 3. TTE- completed today NO ASD 4. optimize HTN, HLD, DM LDL <70 5. no history of afib will need out patient ZIO 6. aspirin 81 mg and plavix 75 mg daily for now 7. PT/OT speech for discharge needs. 8. EEG- normal will see patient in our clinic in 4-6 weeks Lita Cobb PAC schedule Supervising Physician Co-Signing Physician Notes I have seen and discussed above patient with Dr Lita Arechiga, neurology. Pt seen and examined. Language fx nml. No facial asymm or weakness in the UE or LE. EEG no sz, await echo. Imp L frontal infarct, cortical possibly embolic. Continue asa and plavix. Follow-up echo. Will need outpt sales consultant to r/o afib. MD Heather Martha Ledezma is a 63 year old female with a PMH DM, HTN, NSTEMI, who was at [employer] for breakfast and started having issues with getting her words out. She states it was very frustrating because she couldn't tell them what she wanted to talk about. Her states there was not one sided weakness, facial droop vision changes. She does not have a history of afib. The symptoms started to resolve in the ED but she was still having some word finding issues. Today she is having a TTE with bubble study. She thinks she is doing well but her admits she has been having these episode off and on for months. She does have a history of rheumatic fever. denies CP, SOB, abdominal pain, vision changes, facial droop, N, V, swallowing issues. Physical Exam Physical Exam: Gen: alert NAD lungs course breath sounds CV RRR able to say month year [facility], identify button, stethoscope pen. 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 5/5 hip flex 5/5 rapid hand movements, heel to aceves no dysmetria Results & Data Vital Signs (Past 12 Hours) Vital Signs Temp Pulse Pulse Resp BP BP Pulse Ox 02/12/19 11:43 37.1 C 63 20 148/90 H 97 02/12/19 08:00 70 02/12/19 07:43 36.2 C L 66 18 152/92 H 94 Laboratory Results Abnormal lab results 02/11/19 02/12/19 02/12/19 Range/Units 20:36 07:11 07:11 Hgb 11.7 L (12.0-16.0) g/dL Hct 36.3 L (37-47) % RDW Std Deviation 47.0 H (36.4-46.3) fL RDW Coeff of Doreen 15.7 H (11.5-14.5) % Chloride 109 H (98-107) mmol/L BUN 25 H (7-18) mg/dl Creatinine 1.31 H (0.6-1.2) mg/dl Glucose 111 H (70-99) mg/dl POC Glucose 127 H (70-99) Hemoglobin A1c (4.5-5.6) % 02/12/19 02/12/19 02/12/19 Range/Units 07:11 07:19 11:11 Hgb (12.0-16.0) g/dL Hct (37-47) % RDW Std Deviation (36.4-46.3) fL RDW Coeff of Doreen (11.5-14.5) % Chloride (98-107) mmol/L BUN (7-18) mg/dl Creatinine (0.6-1.2) mg/dl Glucose (70-99) mg/dl POC Glucose 114 H 109 H (70-99) Hemoglobin A1c 7.1 H (4.5-5.6) % Diagnostic Findings EEG-His EEG reveals no evidence for focal slowing generalized slowing or epileptiform discharges TTE- EF 55-60% no ASD
--- NOTE | 2019-02-12 15:47 | Electroencephalogram ---
EEG Procedure Note Date of Service February 12, 2019 Start / End Times Start Time: 0850 End Time: 09 Referring Physician Lita Arechiga MD History CVA left hemisphere with a aphasia question seizures Home Medication List Home Medications Medication Instructions Recorded Confirmed Type C,E,zinc,copper [id number] 1 cap PO DAILY 02/19/18 02/11/19 History [Ocuvite Adult 50 Plus] atorvastatin 80 mg PO QPM 02/19/18 02/11/19 History carvedilol 3.125 mg PO BID 02/19/18 02/11/19 History cholecalciferol (vitamin D3) 2,000 unit PO DAILY 02/19/18 02/11/19 History [Vitamin D3] citalopram [Celexa] 20 mg PO DAILY 02/19/18 02/11/19 History clonidine HCl 0.2 mg PO BID 02/19/18 02/11/19 History cyanocobalamin (vitamin B-12) 500 mcg PO DAILY 02/19/18 02/11/19 History [Vitamin B-12] folic acid 800 mcg PO DAILY 02/19/18 02/11/19 History glipizide 2.5 mg PO DAILY 02/19/18 02/11/19 History lisinopril 40 mg PO DAILY 02/19/18 02/11/19 History nitroglycerin 0.4 mg SUBLINGUAL DIRECTED 02/19/18 02/11/19 History nystatin-triamcinolone 1 applic TOPICAL BID 02/19/18 02/11/19 History pyridoxine (vitamin B6) [Vitamin 100 mg PO DAILY 02/19/18 02/11/19 History B-6] repaglinide [Prandin] 2 mg PO DAILY 02/19/18 02/11/19 History clopidogrel [Plavix] 75 mg PO DAILY 02/11/19 02/11/19 History empagliflozin [Jardiance] 25 mg PO DAILY 02/11/19 02/11/19 History levothyroxine 100 mcg PO DAILY 02/11/19 02/11/19 History metformin 500 mg PO BID 02/12/19 02/12/19 History Inpatient Medication List Aspirin ([facility]rin Ectab) [facility] [place] [place] Stop: 03/14/19 08:59 Last Admin: 02/12/19 08:01 Dose: 81 mg Documented by: [id number] Atorvastatin Calcium (Lipitor) 80 mg PO QPM NEGRA Stop: 03/13/19 20:59 Last Admin: 02/11/19 20:38 Dose: 80 mg Documented by: [id number] Carvedilol (Coreg) 3.125 mg PO BID NEGRA Stop: 03/13/19 20:59 Last Admin: 02/12/19 08:01 Dose: 3.125 mg Documented by: [id number] Admin: 02/11/19 20:38 Dose: 3.125 mg Documented by: [id number] Citalopram Hydrobromide (Celexa) 20 mg PO DAILY NEGRA Stop: 03/14/19 08:59 Last Admin: 02/12/19 08:01 Dose: 20 mg Documented by: [id number] Clopidogrel Bisulfate (Plavix) 75 mg PO DAILY NEGRA Stop: 03/14/19 08:59 Last Admin: 02/12/19 08:02 Dose: 75 mg Documented by: [id number] Cyanocobalamin (Vitamin B-12) 500 mcg PO DAILY NEGRA Stop: 03/14/19 08:59 Last Admin: 02/12/19 08:02 Dose: 500 mcg Documented by: [id number] Folic Acid (Folvite) 800 mcg PO DAILY NEGRA Stop: 03/14/19 08:59 Last Admin: 02/12/19 08:01 Dose: 800 mcg Documented by: [id number] Gadobutrol (Gadavist 65ml) 9.5 ml IV ONCE PRN PRN Reason: Interaction Checking Stop: 02/15/19 14:15 Last Admin: 02/11/19 14:16 Dose: 9.5 ml Documented by: [id number] Heparin Sodium (Porcine) (Heparin Sodium (Porcine)) 5,000 units SQ Q8 NEGRA Stop: 03/13/19 21:59 Last Admin: 02/12/19 13:33 Dose: 5,000 units Documented by: [id number] Cosigned by: [id number] Admin: 02/12/19 05:44 Dose: 5,000 units Documented by: [id number] Cosigned by: [id number] Admin: 02/11/19 20:43 Dose: 5,000 units Documented by: [id number] Cosigned by: [id number] Ioversol (Optiray 320 125ml) 120 ml IV ONCE PRN PRN Reason: Interaction Checking Stop: 02/15/19 13:26 Last Admin: 02/11/19 13:27 Dose: 120 ml Documented by: [id number] Levothyroxine Sodium (Synthroid) 100 mcg PO DAILYBB NEGRA Stop: 03/14/19 06:29 Last Admin: 02/12/19 05:44 Dose: 100 mcg Documented by: [id number] Pyridoxine HCl (Vitamin B-6) 100 mg PO DAILY NEGRA Stop: 03/14/19 08:59 Last Admin: 02/12/19 08:02 Dose: 100 mg Documented by: [id number] Discontinued Medications Aspirin (Aspirin) 324 mg PO NOW STA Stop: 02/11/19 14:33 Last Admin: 02/11/19 15:21 Dose: 324 mg Documented by: [id number] Lorazepam (Ativan) 1 mg in 2 mls @ 2 mls/min IV NOW STA Stop: 02/11/19 13:36 Last Admin: 02/11/19 13:43 Dose: 2 mls/min Documented by: [id number] Lorazepam (Ativan) Confirm Administered Dose 2 mg .ROUTE .[employer] ONE Stop: 02/11/19 13:33 Last Admin: 02/11/19 14:25 Dose: Not Given Documented by: [id number] Description This is a 21 electrode EEG with a single channel dedicated to limited EKG. The electrodes were placed in accordance with the International 10-20 system.This EEG was done as a bedside recording with simultaneous video analysis of patient movement and behavior and with photic stimulation as a stimulus parameter I read these conditions there is evidence for normal-appearing background alpha rhythm of about 9 to 10 Hz maximum frequency of 20 to 30 V of maximal amplitude which is symmetrical and maximum posterior head regions. Polymorphic mid frequency modest voltage theta activity seen centrally without any focal or regional predominance and in a symmetrical fashion. Beta activity is present symmetrically bifrontally Photic stimulation provokes a modest driving response No time during the tracing is evidence for potentially epileptogenic activity Interpretation This is essentially normal EEG during wakefulness without evidence for focal or generalized encephalopathy without evidence for potentially epileptogenic activity Clinical Correlation His EEG reveals no evidence for focal slowing generalized slowing or epileptiform discharges Pradip Rees MD
--- NOTE | 2019-02-12 17:13 | Hospitalist Progress Note ---
Date of Service February 12, 2019 Assessment & Plan (1) Stroke: patient with acute stroke and symptoms of expressive with aphasia resolved Brain MRI: A few small scattered foci of restricted diffusion seen within the left posterior temporal lobe and left parietal lobe consistent with acute i nfarcts CTA head and neck- no significant stenosis EEG reveals no evidence for focal slowing generalized slowing or epileptiform discharges echocardiogram: no evidence of atrial septal defect medications of aspirin 81 mg daily and clopidogrel 75 mg daily have been sent electronically to [facility] [address] [facility] [facility] [place] [address] Patient should avoid taking clopidogrel with Prandin (repaglinide), because clopidogrel may significantly increase the blood levels and effects of Prandin (repaglinide) which can lead to severe hypoglycemia (low blood sugar). Patient should avoid Prandin (repaglinide) for now while on clopidogrel and discuss with primary care doctor of other alternative diabetes medication Patient should follow with family medical doctor and continue to take at orvastatin 80 mg daily and to optimize Hypertension, Hyperlipidemia is controlled and patient has met target LDL of less than 70, Diabetes Mellitus management continue folic acid Patient did not have cardiac events on telemetry monitoring but neurology service recommends ZIO patch which can be set up by primary care doctor on follow up Discharge to Home 02/18/2019 1:00 PM Provider Beth Means DO Department [facility] 02/26/2019 10:40 AM Provider Lita Cobb PA-C Department Neurology [facility] 05/03/2019 9:30 AM Provider Misti Zavaleta DO [facility] (2) Coronary artery disease: No cardiac symptoms. -Continue antiplatelet therapy, carvedilol, statin. (3) Hypertension: Continue carvedilol. restart lisinopril can continue clonidine at home (4) CKD (chronic kidney disease), stage III: Serum creatinine 1.31 on discharge (5) Diabetes mellitus type 2, controlled, with complications: Type 2 diabetes mellitus without snf current of insulin HbA1c 7.1 was given insulin inpatient management of diabetes mellitus as commented abov (6) Dyslipidemia: Continue atorvastatin 80 mg daily (7) Hyperhomocysteinemia: Continue folic acid. (8) DVT prophylaxis: Subcutaneous heparin was given in the hospital Ambulate. (9) Discharge planning issues: discharge to home Discharge diagnosis Expressive aphasia, acute stroke, Hypertension, Type 2 diabetes mellitus without snf current of insulin, chronic kidney disease stage III Physical Exam Constitutional: WD/WN, vitals as above comfortable Eyes: PERRL, conjunctivae normal, anicteric sclerae EOM intact bilaterally ENMT: external ear and nose normal, oropharynx normal Neck: normal visual inspection Respiratory: normal respiratory effort, lungs clear to auscultation Cardiovascular: Rate/Rhythm: regular rate and regular rhythm Gastrointestinal (Abdomen): normal bowel sounds, soft, nontender, no hepatospl enomegaly Musculoskeletal: Head/Neck/Chest: normocephalic and head atraumatic Neurologic: PERRL, EOMI, accommodation nl, no face palsy, no dysarthria CN's II-XI intact bilaterally Psychiatric: A+Ox3, euthymic affect Results & Data Vital Signs (Past 12 Hours) Vital Signs Temp Pulse Pulse Pulse Resp BP BP 02/12/19 15:47 37.1 C 71 21 169/97 H 02/12/19 11:43 37.1 C 63 20 148/90 H 02/12/19 08:00 70 02/12/19 07:43 36.2 C L 66 18 152/92 H Pulse Ox 02/12/19 15:47 96 02/12/19 11:43 97 02/12/19 08:00 02/12/19 07:43 94 (1) Stroke CVA mechanism: unspecified Qualified Code(s): I63.9 - Cerebral infarction, unspecified
[2019-02-12] MEDS ORDERED: STROKE PATIENT DISCHARGE STA (17:14)
--- NOTE | 2019-02-12 17:27 | Discharge Summary ---
Date of Service February 12, 2019 Admission HPI Per Admitting Provider 63-year-old female followed by Dr. Misti Zavaleta for Family Medicine. History of coronary artery disease with non-ST elevation SC in 2015, TIAs, hypertension, dyslipidemia, hyperhomocystinemia, diabetes mellitus type 2, and other problems as noted below. She was in her usual state of health until this morning around 1015 when she developed difficulty speaking. Symptoms associated with left-sided headache. No visual changes, facial palsy, focal weakness of upper or lower extremities. EMS summoned. Brought to ED for further evaluation and management. Head CT negative. MRI showed ischemic infarcts in left parietal temporal lobe. ED provider discussed case with Neurology who recommended adding aspirin to clopidogrel. Thrombolytic therapy was not recommended. Patient passed dysphagia screen in the ED. Admission Exam Per Admitting Provider Constitutional: WD/WN, vitals as above no acute distress Eyes: PERRL, conjunctivae normal, anicteric sclerae ENMT: external ear and nose normal, oropharynx normal Neck: trachea midline, no thyromegaly Respiratory: normal respiratory effort, lungs clear to auscultation Cardiovascular: Rate/Rhythm: regular rate Heart Sounds: + gallop (S4) and + murmur (I/ sys murmur LSB); no cardiac rub Vessels: no JVD Extremities: normal capillary refill; no calf tenderness and no edema Gastrointestinal (Abdomen): normal bowel sounds, soft, nontender, no hepatosplenomegaly Musculoskeletal: Head/Neck/Chest: neck supple Extremities: strength 5/5 throughout; no cyanosis and no clubbing Skin: no rashes, warm and dry Neurologic: alert PERRL, EOMI no facial palsy expressive aphasia no dysarthria tongue midline motor strength upper and lower extremities 5/5 bilaterally patellar DTR's 1/2 bilaterally plantar reflexes downgoing bilaterally no difficulty with finger to nose or heel to aceves bilaterally Psychiatric: Orientation: alert Affect: + anxious affect Lymphatic: no cervical lymphadenopathy Principal Diagnosis Expressive aphasia, acute stroke, Hypertension, Type 2 diabetes mellitus without group home current of insulin, chronic kidney disease stage III Discharge Exam Constitutional WD/WN, vitals as above comfortable Eyes PERRL, conjunctivae normal, anicteric sclerae EOM intact bilaterally ENMT external ear and nose normal, oropharynx normal Neck normal visual inspection Respiratory normal respiratory effort, lungs clear to auscultation Cardiovascular Rate/Rhythm: regular rate and regular rhythm Gastrointestinal (Abdomen) normal bowel sounds, soft, nontender, no hepatosplenomegaly Musculoskeletal Head/Neck/Chest: normocephalic and head atraumatic Neurologic PERRL, EOMI, accommodation nl, no face palsy, no dysarthria CN's II-XI intact bilaterally Psychiatric A+Ox3, euthymic affect Discharge Data Allergies Allergy/AdvReac Type Severity Reaction Status Date / Time amoxicillin [From Augmentin] Allergy Nausea Unverified 02/11/19 12:21 clavulanic acid Allergy Nausea Unverified 02/11/19 12:21 [From Augmentin] Consultations 02/11/19 15:02 ED Decision to Admit Stat 02/11/19 16:37 Consult Case Management - Discharge Planning Routine Consult Neurology Routine Ordered Studies 02/11/19 11:25 CT head/brain wo con Stat 02/11/19 13:03 CT angio head w con Stat CT angio neck with con Stat 02/11/19 13:35 MR brain wo/w con Stat Hospital Course (1) Stroke: patient with acute stroke and symptoms of expressive with aphasia resolved Brain MRI: A few small scattered foci of restricted diffusion seen within the left posterior temporal lobe and left parietal lobe consistent with acute infarcts CTA head and neck- no significant stenosis EEG reveals no evidence for focal slowing generalized slowing or epileptiform discharges echocardiogram: no evidence of atrial septal defect medications of aspirin 81 mg daily and clopidogrel 75 mg daily have been sent electronically to [facility] pharmacy [address] [facility] [place] [address] Patient should avoid taking clopidogrel with Prandin (repaglinide), because clopidogrel may significantly increase the blood levels and effects of Prandin (repaglinide) which can lead to severe hypoglycemia (low blood sugar). Patient should avoid Prandin (repaglinide) for now while on clopidogrel and discuss with primary care doctor of other alternative diabetes medication Patient should follow with family medical doctor and continue to take atorvastatin 80 mg daily and to optimize Hypertension, Hyperlipidemia is controlled and patient has met target LDL of less than 70, Diabetes Mellitus management continue folic acid Patient did not have cardiac events on telemetry monitoring but neurology service recommends ZIO patch which can be set up by primary care doctor on follow up Discharge to Home 02/18/2019 1:00 PM Provider Beth Means DO Department [facility] 02/26/2019 10:40 AM Provider Lita Cobb PA-C Department Neurology [facility] 05/03/2019 9:30 AM Provider Misti Zavaleta DO [facility] (2) Coronary artery disease: No cardiac symptoms. -Continue antiplatelet therapy, carvedilol, statin. (3) Hypertension: Continue carvedilol. restart lisinopril can continue clonidine at home (4) CKD (chronic kidney disease), stage III: Serum creatinine 1.31 on discharge (5) Diabetes mellitus type 2, controlled, with complications: Type 2 diabetes mellitus without salvage determiner current of insulin HbA1c 7.1 was given insulin inpatient management of diabetes mellitus as commented abov (6) Dyslipidemia: Continue atorvastatin 80 mg daily (7) Hyperhomocysteinemia: Continue folic acid. (8) DVT prophylaxis: Subcutaneous heparin was given in the hospital Ambulate. (9) Discharge planning issues: discharge to home Discharge diagnosis Expressive aphasia, acute stroke, Hypertension, Type 2 diabetes mellitus without group home current of insulin, chronic kidney disease stage III Total Time Total Time Spent Total Time Spent (In Minutes): 40 minutes Total Time Includes: Examination of the Patient, Discharge Planning, Medication Reconciliation and Communication With Other Providers Discharge Plan Discharge Items Patient Disposition: Home - Self-Care Reason For Visit: STROKE Discharge Diagnosis: Expressive aphasia, acute stroke, Hypertension, Type 2 diabetes mellitus without salvage determiner current of insulin, chronic kidney disease stage III Condition on Discharge: Good Activity: Resume your previous activity Non-emergency contact: Primary Care Provider and Neurologist Call non-emergency contact if: you have any medication questions Follow-up/Referrals: Misti Zavaleta DO [Primary Care Provider] - Diet: Carb Consistent or DM2 Addtl Attending Provider Instructions: patient with acute stroke and symptoms of aphasia with aphasia resolved Brain MRI: A few small scattered foci of restricted diffusion seen within the left posterior temporal lobe and left parietal lobe consistent with acute infarcts CTA head and neck- no significant stenosis EEG reveals no evidence for focal slowing generalized slowing or epileptiform discharges echocardiogram: no evidence of atrial septal defect 4. 5. no history of afib will need out patient ZIO medications of aspirin 81 mg daily and clopidogrel 75 mg daily have been sent electronically to [facility] [address] [address] Patient should avoid taking clopidogrel with Prandin (repaglinide), because clopidogrel may significantly increase the blood levels and effects of Prandin (repaglinide) which can lead to severe hypoglycemia (low blood sugar). Patient should avoid Prandin (repaglinide) for now while on clopidogrel and discuss with primary care doctor of other alternative diabetes medication Patient should follow with family medical doctor and continue to take atorvast atin 80 mg daily and to optimize Hypertension, Hyperlipidemia is controlled and patient has met target LDL of less than 70, Diabetes Mellitus management continue folic acid Patient did not have cardiac events on telemetry monitoring but neurology service recommends ZIO patch which can be set up by primary care doctor on follow up Discharge to Home 02/18/2019 1:00 PM Provider Beth Means DO Department [facility] 02/26/2019 10:40 AM Provider Lita Cobb PA-C Department Neurology [facility] 05/03/2019 9:30 AM Provider Misti Zavaleta DO Department [facility] Pending Studies at Discharge: No Stand-Alone Forms: My [facility] Medications and DC Order Prescriptions: New clopidogrel 75 mg Tablet 75 mg PO DAILY 30 Days Qty: 30 RF: 0 aspirin [Ecotrin Low Strength] 81 mg Tablet,Delayed Release (Dr/Ec) 81 mg PO QAM 30 Days Qty: 30 RF: 0 Continued atorvastatin 80 mg Tablet 80 mg PO QPM RF: 0 carvedilol 3.125 mg Tablet 3.125 mg PO BID RF: 0 clonidine HCl 0.2 mg Tablet 0.2 mg PO BID RF: 0 citalopram [Celexa] 20 mg Tablet 20 mg PO DAILY RF: 0 cyanocobalamin (vitamin B-12) [Vitamin B-12] 500 mcg Tablet 500 mcg PO DAILY RF: 0 nystatin-triamcinolone 100,000-0.1 unit/g-% Cream 1 applic TOPICAL BID RF: 0 nitroglycerin 0.4 mg Tablet, Sublingual 0.4 mg Sublingual DIRECTED RF: 0 pyridoxine (vitamin B6) [Vitamin B-6] 100 mg Tablet 100 mg PO DAILY RF: 0 lisinopril 40 mg Tablet 40 mg PO DAILY RF: 0 glipizide 5 mg Tablet 2.5 mg PO DAILY RF: 0 folic acid 800 mcg Tablet 800 mcg PO DAILY RF: 0 cholecalciferol (vitamin D3) [Vitamin D3] 2,000 unit Capsule 2,000 unit PO DAILY RF: 0 Ocuvite Adult 50 Plus 250-5-1 mg Capsule 1 cap PO DAILY RF: 0 levothyroxine 100 mcg tablet 100 mcg PO DAILY RF: 0 Jardiance 25 mg tablet 25 mg PO DAILY RF: 0 metformin 1,000 mg tablet 500 mg PO BID RF: 0 Discontinued repaglinide [Prandin] 2 mg Tablet 2 mg PO DAILY RF: 0 clopidogrel [Plavix] 75 mg Tablet 75 mg PO DAILY RF: 0 Discharge Orders: Discharge Order (Routine); Ordered 02/12/19 Ordered By: Wes Burns Admission Data Admit Date/Time: 02/11/19 15:13 Attending Provider: Wes Burns Admit Provider: Pradip Manzo Primary Care Provider: Misti Zavaleta Other Providers: Pradip Manzo ; Lita Arechiga
[2019-02-12] MEDS ORDERED: LISINOPRIL 40 MG TAB PO SCH (17:30)
--- NOTE | 2019-02-12 20:11 | Pharmacy Report ---
Pharmacist Stroke Counseling - Date of Service February 12, 2019 - Scope: Pharmacy has been consulted to provide medication discharge counseling for this patient admitted with ischemic stroke as per the Pharmacist Discharge Counseling for Stroke Patients Protocol. - Medications on Discharge: Home Medications Medication Instructions Recorded Confirmed Ocuvite Adult 50 Plus 1 cap PO DAILY 02/19/18 02/11/19 atorvastatin 80 mg PO QPM 02/19/18 02/11/19 carvedilol 3.125 mg PO BID 02/19/18 02/11/19 cholecalciferol (vitamin D3) 2,000 unit PO DAILY 02/19/18 02/11/19 [Vitamin D3] citalopram [Celexa] 20 mg PO DAILY 02/19/18 02/11/19 clonidine HCl 0.2 mg PO BID 02/19/18 02/11/19 cyanocobalamin (vitamin B-12) 500 mcg PO DAILY 02/19/18 02/11/19 [Vitamin B-12] folic acid 800 mcg PO DAILY 02/19/18 02/11/19 glipizide 2.5 mg PO DAILY 02/19/18 02/11/19 lisinopril 40 mg PO DAILY 02/19/18 02/11/19 nitroglycerin 0.4 mg SUBLINGUAL DIRECTED 02/19/18 02/11/19 nystatin-triamcinolone 1 applic TOPICAL BID 02/19/18 02/11/19 pyridoxine (vitamin B6) [Vitamin 100 mg PO DAILY 02/19/18 02/11/19 B-6] Jardiance 25 mg PO DAILY 02/11/19 02/11/19 levothyroxine 100 mcg PO DAILY 02/11/19 02/11/19 metformin 500 mg PO BID 02/12/19 02/12/19 New Rx's Medication Instructions Recorded aspirin [Ecotrin Low Strength] 81 mg PO QAM 30 Days #30 tab 02/12/19 clopidogrel 75 mg PO DAILY 30 Days #30 tab 02/12/19 - Action: The above medications, specifically ones for stroke treatment/prophylaxis, have been reviewed in detail with the patient and/or patient advertising account representative(s) prior to discharge. This includes indication, common adverse reactions, drug interactions, and medication administration. Medication counseling has been employed using the teach-back method to ensure understanding. - Outcome: The patient and/or patient advertising account representative(s) have demonstrated understanding of the medications. Please note, they are aware that the pharmacist will call them within 72 hours post-discharge to confirm that the appropriate medications are being taken and answer any further medication related questions the patient might have at that time. Contact information Individual to be contacted: Brisa Lemon Relationship to patient (if applicable): Phone number: [phone] Best time to call: Any time Additional comments: * Patient states this is her 4th stroke. Previously on aspirin and Plavix in the past; aspirin was D/C'd 03/2018. LDL = 46 - she confirms adherence with atorvastatin. She is aware that aspirin was restarted and that she will be on dual anti-platelet therapy. She denies any bleeding/bruising issues in the past, is aware to monitor. * Explained that Prandin was discontinued secondary to interaction with Plavix - potential for Plavix to incr' Prandin levels, which incr' risk for hypoglycemia. Of note, patient was also prescribed glipizide - duplicate therapy with Prandin as both stimulate insulin production. Patient agrees to stop Prandin. Advised to monitor BG and f/u with PCP to determine if changes with other DM meds needed. * Patient asked when she can restart metformin given recent CT scan yesterday - explained that metformin recommended to be held x 48 hours after test. She can resume on . * Patient uses pillbox and sounds knowledgeable of her medications. * Denies smoking. * Denies using NSAID's. Thank you for allowing pharmacy to be involved in the care of this patient. Please call [phone] or [phone] with any additional questions
--- NOTE | 2019-02-15 16:12 | Pharmacy Report ---
Pharmacist Post D/C Phone Note - Phone Note: Date of phone call: February 15, 2019. The patient was unable to be reached for a follow-up phone call within the 72 hour time frame. Discharge counseling pharmacist contact information has already been provided to the patient should questions arise. Thank you for allowing us to be involved in the care of this patient. - Home Medications: Home Medications Medication Instructions Recorded Confirmed Ocuvite Adult 50 Plus 1 cap PO DAILY 02/19/18 02/11/19 atorvastatin 80 mg PO QPM 02/19/18 02/11/19 carvedilol 3.125 mg PO BID 02/19/18 02/11/19 cholecalciferol (vitamin D3) 2,000 unit PO DAILY 02/19/18 02/11/19 [Vitamin D3] citalopram [Celexa] 20 mg PO DAILY 02/19/18 02/11/19 clonidine HCl 0.2 mg PO BID 02/19/18 02/11/19 cyanocobalamin (vitamin B-12) 500 mcg PO DAILY 02/19/18 02/11/19 [Vitamin B-12] folic acid 800 mcg PO DAILY 02/19/18 02/11/19 glipizide 2.5 mg PO DAILY 02/19/18 02/11/19 lisinopril 40 mg PO DAILY 02/19/18 02/11/19 nitroglycerin 0.4 mg SUBLINGUAL DIRECTED 02/19/18 02/11/19 nystatin-triamcinolone 1 applic TOPICAL BID 02/19/18 02/11/19 pyridoxine (vitamin B6) [Vitamin 100 mg PO DAILY 02/19/18 02/11/19 B-6] Jardiance 25 mg PO DAILY 02/11/19 02/11/19 levothyroxine 100 mcg PO DAILY 02/11/19 02/11/19 metformin 500 mg PO BID 02/12/19 02/12/19 New Rx's Medication Instructions Recorded aspirin [Ecotrin Low Strength] 81 mg PO QAM 30 Days #30 tab 02/12/19 clopidogrel 75 mg PO DAILY 30 Days #30 tab 02/12/19
== END 2019-02-12 19:20 | disposition home or self-care (01) | DRG 65 ==
LOC: ED 11:16 → SUATTDRO 15:13 → 2S 15:13

== ENCOUNTER 2020-09-16 19:40 | Inpatient (IN) ==
[2020-09-16] MEDS ORDERED: OPTIRAY 350 500ml IV ONE (19:59)
--- NOTE | 2020-09-16 20:00 | Emergency Department Note ---
Impression & Plan Transient confusion, Hypertension, Hypomagnesemia, History of cardioembolic cerebrovascular accident (CVA) ED Provider Note Provider: Bartolome Burton MD DATE OF SERVICE: 09/16/2020 CHIEF COMPLAINT: Confusion HISTORY OF PRESENT ILLNESS: Patient is a 64-year-old female with a history of diabetes, CKD, CVA, and [place] presenting here today with her son from home with sudden onset at 7 PM of confusion. Evidently sitting the reading and son describes that she started ask odd questions such as who the president was and did not know who Román Light was. Evidently the patient seems somewhat conf used but did not have any slurred speech or noticeable facial droop. No focal numbness or weakness was reported. Family took her blood sugar which was in the 160s and blood pressures now be somewhat elevated 150s-160s. Patient has evidently been well and has been no reported syncope or falls. Patient was somewhat confused on arrival here. Patient now states that she does not remember these episodes but there is no loss of consciousness or generalized seizure activity reported. Patient otherwise knows the year and month and who the president is is normally interactive. Family states she seems back at baseline. REVIEW OF SYSTEMS: A total of 10 review of systems was obtained and negative except as stated above in the HPI. PAST MEDICAL HISTORY: As noted above MEDICATIONS: Reviewed home medications includes aspirin & Plavix SOCIAL HISTORY: Lives at home with PHYSICAL EXAM: GENERAL: alert and oriented in no acute distress on stretcher Head: normocephalic and atraumatic EYES: No injection, discharge or icterus. PERRL, EOMI. NECK: Trachea midline. Supple. ENT: Mucous membranes pink and moist. Pharynx without erythema or exudate. LUNGS: Airway patent. No retractions. Breath sounds clear with good air entry bilaterally. HEART: Regular rate and rhythm. No chest wall tenderness ABDOMEN: Soft and non-tender, without guarding or rebound. SKIN: Acyanotic, warm, dry, without rashes EXTREMITIES: Without swelling, tenderness or deformity NEUROLOGICAL: No focal deficits. No aphasia. No facial droop or slurred speech. Tongue midline. Normal strength and tone in the extremities. Sensation to gross touch normal. EK bpm normal sinus rhythm. No PVC or PAC. No acute ST segment elevation or depression with a QTC of 458. CONTINUOUS CARDIAC MONITORING: was ordered and showed a heart rate of 50s and 60s bpm in normal sinus rhythm and sinus bradycardia Patient's laboratory studies and imaging reviewed. Differential includes Infection, dehydration, metabolic abnormality, hypo/hyperglycemia, electrolyte disturbance, anemia, hypoxia, cardiac sources, intracerebral event, toxicologic, neurologic, as well as other pathologies. IMPRESSION/MEDICAL DECISION MAKING: Patient presents with acute transient episode of confusion similar prior episodes of stroke. Patient is on aspirin and Plavix. Hypertensive here. Given the similarities although not obviously movable deficit did make the patient a stroke alert. CT and CT of the head and neck were completed. No evidence of acute intracranial bleed or mass. No evidence of acute vascular occlusion per radiology report. Magnesium a little bit low and given some IV magnesium. Blood work otherwise not that impressive. She is not hypoglycemic. You are not impressive for infection. Covid negative. Discussed with Dr. Burkett telestroke at [place]. Discussed with the patient and family as well do feel the patient is a TPA candidate even though she is inside the time window given her significant improvement of symptoms and lack of focality. Symptoms could be recrudescence of stroke, seizure, or metabolic or infectious issue and much less likely to be stroke. Patient and family in agreement TPA is not indicated at this time. Consider some labetalol given significant hypertension but blood pressure trended down on its own. Lower suspicion at this time for hypertensive emergency. Given some IV magnesium. DIAGNOSIS: Transient confusion, hypertension, hypomagnesemia DISPOSITION: Hospitalist will evaluate Patient was agreeable with this plan. Past Med/Surg History Medical History (Updated 09/16/20 @ 23:00 by Bartolome Burton M.D.) Amaurosis fugax of left eye (12/06/13) CKD (chronic kidney disease), stage III Coronary artery disease CVA (cerebral infarction) CVA (cerebral vascular accident) Diabetes Diabetes mellitus type 2, controlled, with complications Dyslipidemia Hyperhomocysteinemia Hypertension Hypertension Hypothyroidism Myocardial infarction NSTEMI (non-ST elevation myocardial infarction) TIA (transient ischemic attack) Vitamin D deficiency Surgical History S/P tonsillectomy Family History Mother Diabetes Hypertension Father Prostate cancer Sister Heart disease cardiomyopathy Social History (Reviewed 08/20/19 @ 16:00 by ZOIE Canela Smoking Status: Never smoker Hx Substance Use: No Preferred Language: Slovak Communication Ability: Effective 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: No Beliefs That Will Affect Care: None marital status: Current Living Situation: Spouse current occupational status: unemployed Feels Safe at Home: Yes Assistive Devices: Glasses Allergies Allergies Allergy/AdvReac Type Severity Reaction Status Date / Time amoxicillin [From Augmentin] AdvReac Intermediate Nausea Verified 09/16/20 20:14 clavulanic acid AdvReac Intermediate Nausea Verified 09/16/20 20:14 [From Augmentin] Home Meds Home Medications Medication Instructions Recorded Confirmed Ocuvite Adult 50 Plus 1 cap PO QAM 02/19/18 09/16/20 atorvastatin 80 mg PO QPM 02/19/18 09/16/20 carvedilol 3.125 mg PO BIDM 02/19/18 09/16/20 cholecalciferol (vitamin D3) 2,000 unit PO QAM 02/19/18 09/16/20 [Vitamin D3] citalopram [Celexa] 20 mg PO HS 02/19/18 09/16/20 clonidine HCl 0.2 mg PO BIDM 02/19/18 09/16/20 cyanocobalamin (vitamin B-12) 500 mcg PO QDL 02/19/18 09/16/20 [Vitamin B-12] folic acid 800 mcg PO QDL 02/19/18 09/16/20 glipizide 2.5 mg PO DAILY 02/19/18 09/16/20 lisinopril 40 mg PO QDL 02/19/18 09/16/20 nitroglycerin 0.4 mg SUBLINGUAL DIRECTED PRN 02/19/18 09/16/20 nystatin-triamcinolone 1 applic TOPICAL BID PRN 02/19/18 09/16/20 pyridoxine (vitamin B6) [Vitamin 100 mg PO QDL 02/19/18 09/16/20 B-6] levothyroxine 100 mcg PO DAILYBB 02/11/19 09/16/20 metformin 500 mg PO BIDM 02/12/19 09/16/20 clopidogrel 75 mg PO DAILY 08/20/19 09/16/20 repaglinide 2 mg PO UD 08/20/19 09/16/20 ezetimibe 10 mg PO HS 09/16/20 09/16/20 Results & Data (ED) Vital Signs Vital Signs - 24 hr 09/16/20 19:43 09/16/20 19:56 09/16/20 20:11 Temperature 36.9 C Temperature Source Temporal Artery Scan Pulse Rate 64 Pulse Rate [Bilateral] 61 68 Pulse Rhythm Regular Pulse Rhythm [Bilateral] Regular Regular Pulse Strength Normal Pulse Strength [Bilateral] Normal Normal Respiratory Rate 20 18 22 Respiratory Effort / Characteristics Non-Labored Spontaneous Non-Labored Spontaneous Non-Labored Spontaneous Respiratory Depth Normal Normal Normal Respiratory Pattern Regular Regular Blood Pressure 189/100 H Blood Pressure [Right Arm] 204/91 H 204/98 H Blood Pressure Mean 129 Blood Pressure Mean [Right Arm] 128 133 Blood Pressure Position Sitting Blood Pressure Position [Right Arm] Sitting Sitting Pulse Oximetry 98 98 98 Oxygen Delivery Method Room Air Room Air Room Air Sepsis Recent Fever Within 48 Hours No Sepsis New/Unexplained Change in Mental Status Yes Sepsis Action Taken by Nursing No Action Required 09/16/20 20:16 09/16/20 20:32 09/16/20 20:43 Temperature Temperature Source Pulse Rate 63 Pulse Rate [Bilateral] 64 63 Pulse Rhythm Pulse Rhythm [Bilateral] Regular Regular Pulse Strength Pulse Strength [Bilateral] Normal Normal Respiratory Rate 24 18 22 Respiratory Effort / Characteristics Non-Labored Spontaneous Non-Labored Spontaneous Respiratory Depth Normal Normal Respiratory Pattern Blood Pressure 188/83 H Blood Pressure [Right Arm] 203/88 H 200/100 H Blood Pressure Mean 118 Blood Pressure Mean [Right Arm] 126 133 Blood Pressure Position Blood Pressure Position [Right Arm] Sitting Sitting Pulse Oximetry 99 99 98 Oxygen Delivery Method Room Air Room Air Room Air Sepsis Recent Fever Within 48 Hours Sepsis New/Unexplained Change in Mental Status Sepsis Action Taken by Nursing 09/16/20 21:32 Temperature Temperature Source Pulse Rate Pulse Rate [Bilateral] 59 L Pulse Rhythm Pulse Rhythm [Bilateral] Pulse Strength Pulse Strength [Bilateral] Respiratory Rate 16 Respiratory Effort / Characteristics Respiratory Depth Respiratory Pattern Blood Pressure Blood Pressure [Right Arm] 154/98 H Blood Pressure Mean Blood Pressure Mean [Right Arm] 116 Blood Pressure Position Blood Pressure Position [Right Arm] Pulse Oximetry 99 Oxygen Delivery Method Sepsis Recent Fever Within 48 Hours Sepsis New/Unexplained Change in Mental Status Sepsis Action Taken by Nursing Laboratory Data Result diagrams: 09/16/20 19:49 09/16/20 19:49 Lab Results 09/16/20 09/16/20 09/16/20 Range/Units 19:49 19:49 19:49 WBC 7.75 (4.8-10.8) K/uL RBC 4.76 (4.2-5.4) M/uL Hgb 12.7 (12.0-16.0) g/dL POC Hgb (12.0-16.0) g/dl Hct 39.7 (37-47) % POC Hct (37-47) % MCV 83.4 (80-100) fL MCH 26.7 (25-34) pg MCHC 32.0 (32-36) g/dL RDW Std Deviation 47.8 H (36.4-46.3) fL RDW Coeff of Doreen 15.7 H (11.5-14.5) % Plt Count 196 (130-400) K/uL MPV 10.5 H (7.4-10.4) fL Immature Gran % (Auto) 0.1 % Neut % (Auto) 50.4 % Lymph % (Auto) 39.1 % [place]pine % (Auto) 5.9 % Eos % (Auto) 4.0 % Baso % (Auto) 0.5 % Neut # (Auto) 3.90 (1.4-6.5) K/uL Lymph # (Auto) 3.03 (1.2-3.4) K/uL [place]pine # (Auto) 0.46 (0.11-0.59) K/uL Eos # (Auto) 0.31 (0-0.5) K/uL Baso # (Auto) 0.04 (0-0.2) K/uL Immature Gran # (Auto) 0.01 (0.00-0.02) K/uL PT 10.4 (9.0-12.0) Seconds INR 1.0 (0.9-1.1) APTT 24.5 (21.0-31.0) Seconds PTT Ratio 0.9 POC Sodium (135-144) mmol/L Sodium (136-145) mmol/L POC Potassium (3.3-5.0) mmol/L Potassium (3.5-5.1) mmol/L POC Chloride (101-112) mmol/L Chloride (98-107) mmol/L Carbon Dioxide (21-32) mmol/L POC Total CO2 (24-31) mmol/L Anion Gap (3-11) POC Anion Gap (16-25) mmol/L POC BUN (7-18) mg/dl BUN (7-18) mg/dl Creatinine (0.6-1.2) mg/dl POC Creatinine (0.6-1.3) mg/dl Est Cr Clr Drug Dosing ml/min Est GFR ( Amer) ml/min Est GFR (Non-Af Amer) ml/min BUN/Creatinine Ratio (10-20) Glucose (70-99) mg/dl POC Glucose (70-99) mg/dl POC Glucose (other) (70-99) mg/dl Calcium (8.5-10.1) mg/dl POC Ioniz Calcium Tamara (1.12-1.32) mmol/l Magnesium (1.8-2.4) mg/dl Total Bilirubin (0.2-1) mg/dl AST (15-37) U/L ALT (12-78) U/L Alkaline Phosphatase (45-117) U/L Troponin I (0-0.045) ng/ml Total Protein (6.4-8.2) gm/dl Albumin (3.4-5.0) gm/dl Globulin (2.5-4.0) gm/dl Albumin/Globulin Ratio (0.9-2) Specimen Hemolysis Urine Color Urine Appearance (Clear) Urine pH (4.5-7.5) Ur Specific [place] (1.000-1.030) Urine Protein (Negative) Urine Glucose (UA) (Negative) Urine Ketones (Negative) Urine Blood (Negative) Urine Nitrite (Negative) Urine Bilirubin (Negative) Urine Urobilinogen (Negative) Ur Leukocyte Esterase (Negative) Urine WBC (Auto) (0-5) /hpf Urine RBC (Auto) (0-4) /hpf U Hyaline Cast (Auto) (0-5) /lpf U Epithel Cells (Auto) (0-5) /lpf Urine Bacteria (Auto) (Negative) COVID-19 Eval Order SARS-CoV-2 (PCR) (Negative) Blood Type A Positive Antibody Screen NEGATIVE 09/16/20 09/16/20 09/16/20 Range/Units 19:49 19:59 20:00 WBC (4.8-10.8) K/uL RBC (4.2-5.4) M/uL Hgb (12.0-16.0) g/dL POC Hgb 14.3 (12.0-16.0) g/dl Hct (37-47) % POC Hct 42 (37-47) % MCV (80-100) fL MCH (25-34) pg MCHC (32-36) g/dL RDW Std Deviation (36.4-46.3) fL RDW Coeff of Doreen (11.5-14.5) % Plt Count (130-400) K/uL MPV (7.4-10.4) fL Immature Gran % (Auto) % Neut % (Auto) % Lymph % (Auto) % [place]pine % (Auto) % Eos % (Auto) % Baso % (Auto) % Neut # (Auto) (1.4-6.5) K/uL Lymph # (Auto) (1.2-3.4) K/uL [place]pine # (Auto) (0.11-0.59) K/uL Eos # (Auto) (0-0.5) K/uL Baso # (Auto) (0-0.2) K/uL Immature Gran # (Auto) (0.00-0.02) K/uL PT (9.0-12.0) Seconds INR (0.9-1.1) APTT (21.0-31.0) Seconds PTT Ratio POC Sodium 141 (135-144) mmol/L Sodium 139 (136-145) mmol/L POC Potassium 4.8 (3.3-5.0) mmol/L Potassium 4.4 (3.5-5.1) mmol/L POC Chloride 105 (101-112) mmol/L Chloride 109 H (98-107) mmol/L Carbon Dioxide 25 (21-32) mmol/L POC Total CO2 25 (24-31) mmol/L Anion Gap 5.0 (3-11) POC Anion Gap 17.0 (16-25) mmol/L POC BUN 28 H (7-18) mg/dl BUN 20 H (7-18) mg/dl Creatinine 1.19 (0.6-1.2) mg/dl POC Creatinine 1.3 (0.6-1.3) mg/dl Est Cr Clr Drug Dosing 73.7 ml/min Est GFR ( Amer) 55.5 ml/min Est GFR (Non-Af Amer) 47.9 ml/min BUN/Creatinine Ratio 16.4 (10-20) Glucose 121 H (70-99) mg/dl POC Glucose 125 H (70-99) mg/dl POC Glucose (other) 123 H (70-99) mg/dl Calcium 8.9 (8.5-10.1) mg/dl POC Ioniz Calcium Tamara 1.16 (1.12-1.32) mmol/l Magnesium 1.7 L (1.8-2.4) mg/dl Total Bilirubin 0.4 (0.2-1) mg/dl AST 26 (15-37) U/L ALT 23 (12-78) U/L Alkaline Phosphatase 65 (45-117) U/L Troponin I < 0.015 (0-0.045) ng/ml Total Protein 8.2 (6.4-8.2) gm/dl Albumin 3.6 (3.4-5.0) gm/dl Globulin 4.6 H (2.5-4.0) gm/dl Albumin/Globulin Ratio 0.8 L (0.9-2) Specimen Hemolysis Urine Color Urine Appearance (Clear) Urine pH (4.5-7.5) Ur Specific [place] (1.000-1.030) Urine Protein (Negative) Urine Glucose (UA) (Negative) Urine Ketones (Negative) Urine Blood (Negative) Urine Nitrite (Negative) Urine Bilirubin (Negative) Urine Urobilinogen (Negative) Ur Leukocyte Esterase (Negative) Urine WBC (Auto) (0-5) /hpf Urine RBC (Auto) (0-4) /hpf U Hyaline Cast (Auto) (0-5) /lpf U Epithel Cells (Auto) (0-5) /lpf Urine Bacteria (Auto) (Negative) COVID-19 Eval Order SARS-CoV-2 (PCR) (Negative) Blood Type Antibody Screen 09/16/20 09/16/20 09/16/20 Range/Units 20:10 20:10 21:23 WBC (4.8-10.8) K/uL RBC (4.2-5.4) M/uL Hgb (12.0-16.0) g/dL POC Hgb (12.0-16.0) g/dl Hct (37-47) % POC Hct (37-47) % MCV (80-100) fL MCH (25-34) pg MCHC (32-36) g/dL RDW Std Deviation (36.4-46.3) fL RDW Coeff of Doreen (11.5-14.5) % Plt Count (130-400) K/uL MPV (7.4-10.4) fL Immature Gran % (Auto) % Neut % (Auto) % Lymph % (Auto) % [place]pine % (Auto) % Eos % (Auto) % Baso % (Auto) % Neut # (Auto) (1.4-6.5) K/uL Lymph # (Auto) (1.2-3.4) K/uL Alpine # (Auto) (0.11-0.59) K/uL Eos # (Auto) (0-0.5) K/uL Baso # (Auto) (0-0.2) K/uL Immature Gran # (Auto) (0.00-0.02) K/uL PT (9.0-12.0) Seconds INR (0.9-1.1) APTT (21.0-31.0) Seconds PTT Ratio POC Sodium (135-144) mmol/L Sodium (136-145) mmol/L POC Potassium (3.3-5.0) mmol/L Potassium (3.5-5.1) mmol/L POC Chloride (101-112) mmol/L Chloride (98-107) mmol/L Carbon Dioxide (21-32) mmol/L POC Total CO2 (24-31) mmol/L Anion Gap (3-11) POC Anion Gap (16-25) mmol/L POC BUN (7-18) mg/dl BUN (7-18) mg/dl Creatinine (0.6-1.2) mg/dl POC Creatinine (0.6-1.3) mg/dl Est Cr Clr Drug Dosing ml/min Est GFR ( Amer) ml/min Est GFR (Non-Af Amer) ml/min BUN/Creatinine Ratio (10-20) Glucose (70-99) mg/dl POC Glucose (70-99) mg/dl POC Glucose (other) (70-99) mg/dl Calcium (8.5-10.1) mg/dl POC Ioniz Calcium Tamara (1.12-1.32) mmol/l Magnesium (1.8-2.4) mg/dl Total Bilirubin (0.2-1) mg/dl AST (15-37) U/L ALT (12-78) U/L Alkaline Phosphatase (45-117) U/L Troponin I (0-0.045) ng/ml Total Protein (6.4-8.2) gm/dl Albumin (3.4-5.0) gm/dl Globulin (2.5-4.0) gm/dl Albumin/Globulin Ratio (0.9-2) Specimen Hemolysis Urine Color Yellow Urine Appearance Clear (Clear) Urine pH 5.0 (4.5-7.5) Ur Specific Henderson 1.010 (1.000-1.030) Urine Protein Negative (Negative) Urine Glucose (UA) Negative (Negative) Urine Ketones Negative (Negative) Urine Blood Negative (Negative) Urine Nitrite Negative (Negative) Urine Bilirubin Negative (Negative) Urine Urobilinogen Negative (Negative) Ur Leukocyte Esterase 1+ H (Negative) Urine WBC (Auto) 10-30 H (0-5) /hpf Urine RBC (Auto) 0-4 (0-4) /hpf U Hyaline Cast (Auto) 0 (0-5) /lpf U Epithel Cells (Auto) 10-20 H (0-5) /lpf Urine Bacteria (Auto) 1+ H (Negative) COVID-19 Eval Order Covid19 at [facility] SARS-CoV-2 (PCR) NEGATIVE (Negative) Blood Type Antibody Screen Administered Medications Discontinued Medications Magnesium Sulfate/Dextrose (Magnesium Sulfate / D5w) 1 gm in 100 mls @ 100 mls/hr IV Q1H NEGRA Stop: 09/16/20 22:37 Last Admin: 09/16/20 22:00 Dose: 100 mls/hr Documented by: [id number] Infusion: 09/16/20 21:50 Dose: 0 mls/hr Documented by: [id number] Admin: 09/16/20 20:50 Dose: 100 mls/hr Documented by: [id number] Ioversol (Optiray 350 500ml) 109 ml IV ONCE ONE Stop: 09/16/20 20:00 Last Admin: 09/16/20 20:00 Dose: 109 ml Documented by: [id number] Labetalol HCl (Labetalol Hcl Iv 5 Mg/Ml 20ml) 10 mg IV NOW STA Stop: 09/16/20 20:38 Last Admin: 09/16/20 20:50 Dose: Not Given Documented by: [id number] Imaging Data Radiologist's Impression: Head CT 09/16/20 19:[address] DOSE: 1283.04 mGy.cm HISTORY: Confusion. Stroke Like Symptoms TECHNIQUE: Multiaxial CT images of the head were performed without the use of intravenous contrast. Automated exposure control was utilized for this study. A dose lowering technique was utilized adhering to the principles of ALARA. Comparison: Head CT 02/11/2019. Findings: Mild mucosal thickening within the paranasal sinuses. The calvarium and skull base are intact. The ventricles and sulci are within normal limits. There is no mass, hematoma, midline shift, or acute infarct. Impression: No acute intracranial abnormality. ACT 112: Negative or not required by law. Electronically signed by: Stalin Rojo M.D. 09/16/2020 8:09 PM Head CTA 09/16/20 19:48 HEAD & NECK CTA HISTORY: Confusion. Stroke Like Symptoms TECHNIQUE: Multiaxial CT images of the head were performed following the intravenous administration of contrast to evaluate the major cerebral vessels. Multiaxial CT images of the neck were also performed following the intravenous administration of contrast to evaluate the major cervical vessels. Maximum intensity projection images were also obtained. A dose lowering technique was utilized adhering to the principles of ALARA. COMPARISON: Head and neck CTA 02/11/2019. FINDINGS: The study is limited from a technical standpoint due to the suboptimal opacification of the cerebral arteries from the timing of contrast. However, no high-grade stenosis or occlusion identified within the bilateral ACAs, MCAs, or site engineer. The distal vertebral arteries, basilar artery, and intracranial internal carotid arteries appear patent. The aortic arch and proximal great vessels are widely patent. There is no significant stenosis, occlusion, or dissection identified within the bilateral common carotid, internal carotid, or vertebral arteries. Mild to moderate calcified plaque within the right carotid bifurcation. IMPRESSION: 1. No high-grade stenosis or occlusion within the [place]. 2. No significant stenosis, occlusion, or dissection identified within the carotid or vertebral arteries. ACT 112: Negative or not required by law. Electronically signed by: Stalin Rojo M.D. 09/16/2020 8:16 PM Neck CTA 09/16/20 19:48 HEAD & NECK CTA HISTORY: Confusion. Stroke Like Symptoms TECHNIQUE: Multiaxial CT images of the head were performed following the intravenous administration of contrast to evaluate the major cerebral vessels. Multiaxial CT images of the neck were also performed following the intravenous administration of contrast to evaluate the major cervical vessels. Maximum intensity projection images were also obtained. A dose lowering technique was utilized adhering to the principles of ALARA. COMPARISON: Head and neck CTA 02/11/2019. FINDINGS: The study is limited from a technical standpoint due to the suboptimal opacification of the cerebral arteries from the timing of contrast. However, no high-grade stenosis or occlusion identified within the bilateral ACAs, MCAs, or site engineer. The distal vertebral arteries, basilar artery, and intracranial internal carotid arteries appear patent. The aortic arch and proximal great vessels are widely patent. There is no significant stenosis, occlusion, or dissection identified within the bilateral common carotid, internal carotid, or vertebral arteries. Mild to moderate calcified plaque within the right carotid bifurcation. IMPRESSION: 1. No high-grade stenosis or occlusion within the [place]. 2. No significant stenosis, occlusion, or dissection identified within the carotid or vertebral arteries. ACT 112: Negative or not required by law. Electronically signed by: Stalin Rojo M.D. 09/16/2020 8:16 PM Discharge Plan Visit Data Chief Complaint: Neuro Symptoms/Deficit Stated Complaint: MINI STROKE ED Provider: Bartolome Burton Discharge Problem: Transient confusion, Hypertension, Hypomagnesemia, History of cardioembolic cerebrovascular accident (CVA) Patient Disposition: Being Evaluated by Hospitalist Forms Stand Alone Forms: My [facility] Prescriptions Prescriptions: No Action atorvastatin 80 mg Tablet 80 mg PO QPM RF: 0 carvedilol 3.125 mg Tablet 3.125 mg PO BIDM RF: 0 clonidine HCl 0.2 mg Tablet 0.2 mg PO BIDM RF: 0 citalopram [Celexa] 20 mg Tablet 20 mg PO HS RF: 0 cyanocobalamin (vitamin B-12) [Vitamin B-12] 500 mcg Tablet 500 mcg PO QDL RF: 0 nystatin-triamcinolone 100,000-0.1 unit/g-% Cream 1 applic TOPICAL BID PRN (Reason: Skin Irritation) RF: 0 nitroglycerin 0.4 mg Tablet, Sublingual 0.4 mg Sublingual DIRECTED PRN (Reason: Chest Pain) RF: 0 pyridoxine (vitamin B6) [Vitamin B-6] 100 mg Tablet 100 mg PO QDL RF: 0 lisinopril 40 mg Tablet 40 mg PO QDL RF: 0 glipizide 5 mg Tablet 2.5 mg PO DAILY RF: 0 folic acid 800 mcg Tablet 800 mcg PO QDL RF: 0 cholecalciferol (vitamin D3) [Vitamin D3] 2,000 unit Capsule 2,000 unit PO QAM RF: 0 Ocuvite Adult 50 Plus 250-5-1 mg Capsule 1 cap PO QAM RF: 0 levothyroxine 100 mcg tablet 100 mcg PO DAILYBB RF: 0 metformin 1,000 mg tablet 500 mg PO BIDM RF: 0 repaglinide 2 mg tablet 2 mg PO UD RF: 0 clopidogrel 75 mg tablet 75 mg PO DAILY RF: 0 ezetimibe 10 mg tablet 10 mg PO HS RF: 0 Referrals Referrals: Misti Zavaleta DO [Primary Care Provider] - Discharge Problem: Hypertension Qualifiers: Hypertension type: unspecified Qualified Code(s): I10 - Essential (primary) hypertension
[2020-09-16 20:02] LABS: Basophils # (auto) 0.04 K/uL (0-0.2); Basophils % (auto) 0.5 %; Eosinophils # (auto) 0.31 K/uL (0-0.5); Hematocrit (blood only) 39.7 % (37-47); Hemoglobin 12.7 g/dL (12.0-16.0); Immature Granulocytes # (auto) 0.01 K/uL (0.00-0.02); Immature Granulocytes % (auto) 0.1 %; Lymphocytes # (auto) 3.03 K/uL (1.2-3.4); Lymphocytes % (auto) 39.1 %; Mean Corpuscular Hemoglobin 26.7 pg (25-34); Mean Corpuscular Volume 83.4 fL (80-100); Mean Platelet Volume 10.5 fL (7.4-10.4); Monocytes # (auto) 0.46 K/uL (0.11-0.59); Monocytes % (auto) 5.9 %; Neutrophils % (auto) 50.4 %; Platelet Count 196 K/uL (130-400); RDW Coefficient of Variation 15.7 % (11.5-14.5); RDW Standard Deviation 47.8 fL (36.4-46.3); Red Blood Count 4.76 M/uL (4.2-5.4); White Blood Count 7.75 K/uL (4.8-10.8)
--- NOTE | 2020-09-16 20:10 | CT Scan Report ---
HEAD CT NONCONTRAST CT DOSE: 1283.04 mGy.cm HISTORY: Confusion. Stroke Like Symptoms TECHNIQUE: Multiaxial CT images of the head were performed without the use of intravenous contrast. A utomated exposure control was utilized for this study. A dose lowering technique was utilized adheri ng to the principles of ALARA. Comparison: Head CT 02/11/2019. Findings: Mild mucosal thickening within the paranasal sinuses. The calvarium and skull base are inta ct. The ventricles and sulci are within normal limits. There is no mass, hematoma, midline shift, or acute infarct. Impression: No acute intracranial abnormality. ACT 112: Negative or not required by law. Electronically signed by: Stalin Rojo M.D. 09/16/2020 8:09 PM
[2020-09-16 20:12] LABS: iSTAT Creatinine 1.3 mg/dl (0.6-1.3); iSTAT Hemoglobin 14.3 g/dl (12.0-16.0); iSTAT Ionized Calcium 1.16 mmol/l (1.12-1.32); iSTAT Potassium 4.8 mmol/L (3.3-5.0)
[2020-09-16 20:14] LABS: Partial Thromboplastin Ratio 0.9; Partial Thromboplastin Time 24.5 Seconds (21.0-31.0); Prothrombin Time 10.4 Seconds (9.0-12.0)
--- NOTE | 2020-09-16 20:19 | CT Scan Report ---
HEAD & NECK CTA HISTORY: Confusion. Stroke Like Symptoms TECHNIQUE: Multiaxial CT images of the head were performed following the intravenous administration o f contrast to evaluate the major cerebral vessels. Multiaxial CT images of the neck were also perform ed following the intravenous administration of contrast to evaluate the major cervical vessels. Maxim um intensity projection images were also obtained. A dose lowering technique was utilized adhering to the principles of ALARA. COMPARISON: Head and neck CTA 02/11/2019. FINDINGS: The study is limited from a technical standpoint due to the suboptimal opacification of the cerebral arteries from the timing of contrast. 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 The distal vertebral arteries, basilar artery, and intracranial in ternal carotid arteries appear patent. The aortic arch and proximal great vessels are widely patent. There is no significant stenosis, occ lusion, or dissection identified within the bilateral common carotid, internal carotid, or vertebral arteries. Mild to moderate calcified plaque within the right carotid bifurcation. IMPRESSION: 1. No high-grade stenosis or occlusion within the [place]. 2. No significant stenosis, occlusion, or dissection identified within the carotid or vertebral arter ies. ACT 112: Negative or not required by law. Electronically signed by: Stalin Rojo M.D. 09/16/2020 8:16 PM
--- NOTE | 2020-09-16 20:19 | CT Scan Report ---
HEAD & NECK CTA HISTORY: Confusion. Stroke Like Symptoms TECHNIQUE: Multiaxial CT images of the head were performed following the intravenous administration o f contrast to evaluate the major cerebral vessels. Multiaxial CT images of the neck were also perform ed following the intravenous administration of contrast to evaluate the major cervical vessels. Maxim um intensity projection images were also obtained. A dose lowering technique was utilized adhering to the principles of ALARA. COMPARISON: Head and neck CTA 02/11/2019. FINDINGS: The study is limited from a technical standpoint due to the suboptimal opacification of the cerebral arteries from the timing of contrast. 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 The distal vertebral arteries, basilar artery, and intracranial in ternal carotid arteries appear patent. The aortic arch and proximal great vessels are widely patent. There is no significant stenosis, occ lusion, or dissection identified within the bilateral common carotid, internal carotid, or vertebral arteries. Mild to moderate calcified plaque within the right carotid bifurcation. IMPRESSION: 1. No high-grade stenosis or occlusion within the [place]. 2. No significant stenosis, occlusion, or dissection identified within the carotid or vertebral arter ies. ACT 112: Negative or not required by law. Electronically signed by: Stalin Rojo M.D. 09/16/2020 8:16 PM
[2020-09-16 20:23] LABS: Alanine Aminotransferase 23 U/L (12-78); Albumin Level 3.6 gm/dl (3.4-5.0); Aspartate Aminotransferase 26 U/L (15-37); BUN Creatinine Ratio 16.4 (10-20); Blood Urea Nitrogen 20 mg/dl (7-18); Calcium 8.9 mg/dl (8.5-10.1); Carbon Dioxide 25 mmol/L (21-32); Chloride 109 mmol/L (98-107); Creatinine Clr Calc Pharmacy 73.7 ml/min; Est GFR (African American) 55.5 ml/min; Est GFR (Non-African American) 47.9 ml/min; Glucose 121 mg/dl (70-99); Magnesium 1.7 mg/dl (1.8-2.4); Potassium 4.4 mmol/L (3.5-5.1); Sodium 139 mmol/L (136-145)
[2020-09-16] MEDS ORDERED: LABETALOL HCL IV 5 MG/ML 20ML IV STA (20:37)
[2020-09-16 20:42] LABS: Albumin Globulin Ratio 0.8 (0.9-2); Alkaline Phosphatase 65 U/L (45-117); Bilirubin,Total 0.4 mg/dl (0.2-1); Globulin 4.6 gm/dl (2.5-4.0); Total Protein 8.2 gm/dl (6.4-8.2); Troponin I < 0.015 ng/ml (0-0.045)
[2020-09-16] MEDS: MAGNESIUM SULFATE / D5W 1 GM/100 ML BAG IV SCH ×2 (20:50→22:00)
[2020-09-16 22:14] LABS: Appearance Urine Clear (Clear); Bacteria Urine Automated 1+ (Negative); Bilirubin Urine Negative (Negative); Blood Urine Negative (Negative); Cast Urine Automated 0 /lpf (0-5); Color Urine Yellow; Glucose Urine UA Negative (Negative); Ketones Urine Negative (Negative); Leukocyte Esterase Urine 1+ (Negative); Nitrite Urine Negative (Negative); Protein Urine Negative (Negative); RBC Urine Automated 0-4 /hpf (0-4); Urobilinogen Urine Negative (Negative)
[2020-09-16] MEDS ORDERED: LORazepam 0.5 MG/1 ML VIAL IV STA (23:47)
[2020-09-17] MEDS ORDERED: NYSTATIN/TRIAMCIN CR 15 GM TUBE EXT PRN (01:08)
[2020-09-17] MEDS ORDERED: POLYETHYLENE (MIRALAX) 17 GM PACK PO PRN (01:08)
[2020-09-17] MEDS ORDERED: NITROGLYCERIN SL 0.4 MG/TAB TAB SL PRN (01:08)
[2020-09-17] MEDS ORDERED: cefTRIAXone SODIUM 1,000 MG in DEXTROSE 5% 50 ML IV SCH (01:08)
[2020-09-17] MEDS ORDERED: ACETAMINOPHEN 325 MG TAB PO PRN (01:08)
[2020-09-17] MEDS ORDERED: SODIUM CHLORIDE 0.9% 1000ML 1,000 ML IV SCH (01:08)
[2020-09-17] MEDS ORDERED: PHARMACIST DISCHARGE MED REC CONSULT PRN (01:08)
[2020-09-17] MEDS ORDERED: GADOBUTROL 65ML VIAL IV ONE (01:16)
--- NOTE | 2020-09-17 01:23 | History and Physical Report ---
DATE OF ADMISSION: 09/16/2020 CHIEF COMPLAINT: Stroke-like symptoms. HISTORY OF PRESENT ILLNESS: This is a 64-year-old female with past medical history significant for type 2 diabetes, hyperlipidemia, hypothyroidism, hyperhomocysteinemia, carotid artery stenosis, hypertension, history of CVA, history of CAD, history of Takotsubo cardiomyopathy, vitamin D deficiency, chronic kidney disease stage III, history of hirsutism, history of TIA, history of non-ST elevated myocardial infarction, who was brought in because of stroke-like symptoms. Between 7:00 to 8:00 a.m. she had memory loss, she does not remember anything, she does not remember putting on the socks or coming to the hospital. She does not remember getting admitted. Stroke alert was called. Workup was negative, but then her symptoms resolved and she has come back to baseline, but she does not remember that 1-hour period of time. She had a similar episode in the past. She has had many strokes and first stroke she had a short-term memory loss and she had vision problems for 3 weeks. Currently her vision is okay. She is already on Plavix and Zetia. Currently, denies any headache, no blurred visions or double visions, no earache, no runny nose, no sore throat, no cough, no fever, no chills. No difficulty swallowing, no chest pain, no shortness of breath. No imbalance. Ambulating fine. No chest pain. No nausea, no abdominal pain, no diarrhea. Normal bowel and bladder movements. ALLERGIES: AUGMENTIN. PAST MEDICAL HISTORY: As mentioned above. PAST SURGICAL HISTORY: Colonoscopy, tonsillectomy. MEDICATIONS: The patient is on atorvastatin 80 mg p.o. p.m., Coreg 3.125 mg p.o. b.i.d., vitamin D 2000 units p.o. a.m., citalopram 20 mg p.o. at bedtime, clonidine 0.2 mg p.o. b.i.d., Plavix 75 mg p.o. daily, vitamin B12 500 mcg p.o. daily, ezetimibe 10 mg p.o. at bedtime, folic acid 800 mcg p.o. daily, glipizide 2.5 mg p.o. daily, levothyroxine 100 mcg p.o. daily, lisinopril 40 mg p.o. daily, metformin 500 mg p.o. b.i.d., nitroglycerin 0.4 mg sublingual p.r.n., nystatin topical b.i.d. p.r.n., Ocuvite 1 capsule p.o. a.m., vitamin B6 100 mg p.o. daily, repaglinide 2 mg p.o. as directed. FAMILY HISTORY: Significant for sister has polycythemia, cardiomyopathy, diabetes; father has prostate cancer; mother has diabetes. SOCIAL HISTORY: . No smoking, no alcohol, no drug use. REVIEW OF SYSTEMS: As per HPI. Rest of the review of systems negative. PHYSICAL EXAMINATION: GENERAL: The patient is of moderate build, not in acute distress. VITAL SIGNS: Temperature 36.9, pulse 59, respiratory rate 16, blood pressure 154/98, oxygen 99% on room air. HEENT: Pupils equal, round, reactive to light. Extraocular muscles intact. No nystagmus seen. Oral mucosa moist. NECK: No JVD, no neck masses. CARDIOVASCULAR: S1, S2 heard, regular rate and rhythm, no murmur, no gallop. RESPIRATORY SYSTEM: Normal AP diameter. No accessory muscle use. No wheezing, no crackles. ABDOMEN: Soft, bowel sounds present, nontender. No distention. CENTRAL NERVOUS SYSTEM: Cranial nerves II-XII grossly intact. Power 5/5 in all extremities. Speech is clear, no facial droop. Sensation is intact. Position sense intact. Coordination of movements normal. No pronator drift. EXTREMITIES: No edema, no erythema. LABORATORY DATA: WBC 7.7, hemoglobin ____ 12.7, hematocrit 39.7, platelets 196. PT 10.4, INR 1, APTT 24.5. Sodium 139, potassium 4.4, chloride 109, BUN 20, creatinine 1.1, serum glucose 121, calcium 8.9, magnesium 1.7, total bilirubin 0.4, AST 26, ALT 23, alkaline phosphatase 65. Troponin I less than 0.015. Urinalysis, +1 leukocyte esterase. SARS-CoV-2 PCR negative. IMAGING: CT of the head, no acute intracranial abnormality. CTA of the head and neck, no acute findings. EKG: Normal sinus rhythm at a rate of 64, no significant change was found. ASSESSMENT AND PLAN: This is a 64-year-old female with past history of CVA, who presents with stroke-like symptoms. 1. Stroke-like symptoms with transient global amnesia: History of amnesia in the past. Initial workup is unremarkable. When she came, stroke alert was called. No tpa given. Will do a full stroke workup with MRI scan, echocardiogram, speech evaluation, PT and OT, and neuro evaluation in the a.m. We will also rule out any seizures with EEG and also give IV thiamine for global transient amnesia and monitor in the tele floor. Await neuro inputs 2. Diabetes: Hold her home medication of repaglinide, metformin, and glipizide. Placed her on Lantus and insulin sliding scale. Follow the blood sugars, follow HbA1c levels. 3. Hyperlipidemia: Continue her atorvastatin and Zetia. Follow the lipid profile. 4. History of hypertension: Continue lisinopril, clonidine, and Coreg. We will monitor the blood pressure. 5. Hypothyroidism: Continue Synthroid. 6. History of Takotsubo cardiomyopathy: We will follow the echocardiogram. 7. History of coronary artery disease: On Plavix, statin, and beta minna. 8. Chronic kidney disease stage III: Creatinine of 1.1. We will follow the labs. 9. Hypomagnesemia: We will replace. 10. Possible urinary tract infection: We will follow the cultures. Empirically started on Rocephin. 11. Deep venous thrombosis prophylaxis: Sequential compression devices. DISPOSITION: Monitor in the tele floor. PT and OT prior to discharge. Social service to help with discharge planning. Level 1 full code. MTDD
[2020-09-17] MEDS ORDERED: THIAMINE HCL 500 MG in SODIUM CHLORIDE 0.9% 50 ML IV ONE (01:30)
[2020-09-17] MEDS ORDERED: GLUCAGON FOR INJ 1 MG VIAL IM PRN (01:45)
[2020-09-17] MEDS ORDERED: GLUCOSE 10 TABS/TUBE PO PRN (01:45)
[2020-09-17] MEDS ORDERED: CARBOHYDRATES FOR HYPOGLYCEMIA PO PRN (01:45)
[2020-09-17] MEDS ORDERED: DEXTROSE 50% 50 ML SYRINGE IV PRN (01:45)
[2020-09-17] MEDS ORDERED: GLUCOSE 40% GEL 15 GM TUBE PO PRN (01:45)
[2020-09-17] MEDS: cefTRIAXone SODIUM 2,000 MG in DEXTROSE 5% 50 ML IV SCH (03:24)
[2020-09-17] MEDS: LEVOTHYROXINE SODIUM 100 MCG TABLET PO SCH (06:26)
--- NOTE | 2020-09-17 07:02 | Magnetic Resonance Report ---
MRI OF THE BRAIN COMBO CLINICAL HISTORY: Strokelike symptoms. Memory loss. Change in mental status. COMPARISON STUDY: CT of the brain dated 09/16/2020. MRI of the brain dated 02/11/2019. TECHNIQUE: MRI of the brain was performed utilizing various T1 and T2-weighted sequences in the axial , sagittal, and coronal planes. Contrast-enhanced sequences were acquired following the administratio n of 9.9 cc of Gadavist. FINDINGS: Brain parenchyma: There is age-related involutional change noting mild microangiopathic disease. Ther e is no hemorrhage or mass effect. There is no restricted diffusion to suggest acute ischemia. No enh ancing mass lesion is identified on the postcontrast images. Mays-white matter differentiation is pre served. No extra-axial fluid collection is seen. A chronic lacunar infarct is noted in the left cereb ellar hemisphere. The cerebellar tonsils are normal in configuration. Ventricles, sulci, and cisterns: Prominent secondary to involutional change. Pituitary and sella: Unremarkable. Intracranial vasculature: Normal flow voids are maintained at the skull base. Orbits: The bony orbits are grossly intact. Orbital contents are normal in appearance. Sinuses and mastoids: There is trace mucosal thickening within the maxillary sinuses. Mild mucosal th ickening seen within the right frontal and ethmoid sinuses. There is a small right mastoid effusion. Calvarium: Unremarkable. Cervical cord: Partially visualized cervical spinal cord is normal in morphology and signal intensity . IMPRESSION: No acute intracranial abnormality is identified. ACT 112: Negative or not required by law. Electronically signed by: Reza Cooper M.D. 09/17/2020 7:01 AM
[2020-09-17 07:38] LABS: Basophils # (auto) 0.04 K/uL (0-0.2); Basophils % (auto) 0.6 %; Eosinophils # (auto) 0.31 K/uL (0-0.5); Eosinophils % (auto) 4.6 %; Hematocrit (blood only) 35.2 % (37-47); Hemoglobin 11.2 g/dL (12.0-16.0); Immature Granulocytes # (auto) 0.01 K/uL (0.00-0.02); Immature Granulocytes % (auto) 0.1 %; Lymphocytes # (auto) 2.11 K/uL (1.2-3.4); Lymphocytes % (auto) 31.6 %; Mean Corpuscular Hemoglobin 26.9 pg (25-34); Mean Corpuscular Hgb Conc 31.8 g/dL (32-36); Mean Corpuscular Volume 84.4 fL (80-100); Mean Platelet Volume 10.8 fL (7.4-10.4); Monocytes # (auto) 0.47 K/uL (0.11-0.59); Neutrophils # (auto) 3.74 K/uL (1.4-6.5); Neutrophils % (auto) 56.1 %; Platelet Count 179 K/uL (130-400); RDW Standard Deviation 49.3 fL (36.4-46.3); Red Blood Count 4.17 M/uL (4.2-5.4); White Blood Count 6.68 K/uL (4.8-10.8)
[2020-09-17] MEDS: INSULIN ASPART 100 UNITS/ML 3 ML PEN SC SCH ×4 (08:09→20:31)
[2020-09-17 08:11] LABS: Estimated Average Glucose 140 mg/dl; Hemoglobin A1C 6.5 % (4.5-5.6)
[2020-09-17] MEDS: cloNIDine HCL 0.1 MG TAB PO SCH ×2 (08:11→17:31)
[2020-09-17] MEDS: CEROVITE ADV FORMULA TAB PO SCH (08:12)
[2020-09-17] MEDS: CHOLECALCIFEROL 1,000 UNITS 25 MCG TAB PO SCH (08:12)
[2020-09-17] MEDS: CLOPIDOGREL BISULFATE 75 MG TAB PO SCH (08:12)
[2020-09-17 08:14] LABS: BUN Creatinine Ratio 19.3 (10-20); Calcium 8.3 mg/dl (8.5-10.1); Creatinine Clr Calc Pharmacy 66.9 ml/min; Est GFR (African American) 71.9 ml/min; Est GFR (Non-African American) 62.1 ml/min; Potassium 4.1 mmol/L (3.5-5.1)
[2020-09-17] MEDS: carvediloL 3.125 MG TAB PO SCH ×2 (08:17→17:35)
[2020-09-17] MEDS: INSULIN GLARGINE SOLOSTAR 100 UNITS/ML 3 ML PEN SC SCH ×2 (09:33→20:29)
--- NOTE | 2020-09-17 10:21 | Consultation Report ---
DATE OF CONSULTATION: 09/17/2020 NEUROLOGY CONSULTATION NOTE CHIEF COMPLAINT: Memory loss or amnesia. HISTORY OF PRESENT ILLNESS: This 64-year-old woman with multiple medical comorbidities pertinent for type 2 diabetes, carotid artery stenosis, hypertension, and prior history of CVA as well as a Takotsubo cardiomyopathy as well as chronic kidney disease who presented to the Emergency Department yesterday for a period of amnesia. She was noted to have loss of memory between the hours of 7:00 a.m. and 8:00 a.m. She does not remember anything, nor does she remember putting on her socks or coming to the hospital. She does not remember getting admitted. A stroke alert was called upon arrival. Workup was negative. Her symptoms did resolve. She does have a history of a similar episode in the past which was deemed as a transient global amnesia. She has had several strokes as well as short-term memory loss and difficulty sleeping. She is on Plavix and Zetia. She denies any headache, changes in vision, fever or chills. She has no dysarthria or difficulty swallowing. No chest pain or shortness of breath. The patient was admitted for stroke-like symptoms and neurology was consulted upon admission. ALLERGIES: AUGMENTIN. PAST MEDICAL HISTORY: Type 2 diabetes, hyperlipidemia, hypothyroidism, hyperhomocysteinemia, carotid artery stenosis, hypertension, prior cerebrovascular accident, history of coronary artery disease, history of Takotsubo cardiomyopathy, vitamin D deficiency, chronic kidney disease stage III, history of TGA, history of myocardial infarction. PAST SURGICAL HISTORY: Colonoscopy, tonsillectomy. HOME MEDICATIONS: Lipitor 80 mg, Coreg 3.125 mg twice daily, vitamin D, Celexa 20 mg, clonidine 0.2 mg twice daily, Plavix 75 mg daily, vitamin B12, folic acid, glipizide, Synthroid, lisinopril 40 mg daily, metformin 500 mg twice daily, vitamin B6. FAMILY HISTORY: Significant for her sister has polycythemia, cardiomyopathy, and diabetes. Her father had prostate cancer and her mother has diabetes. SOCIAL HISTORY: She is , a nonsmoker and denies any alcohol or illicit drug use. REVIEW OF SYSTEMS: All other review of systems was negative except as noted above in the HPI including memory loss or amnesia. PHYSICAL EXAMINATION: VITAL SIGNS: Blood pressure 116/72, pulse is 62, respiratory rate 16, temperature is 36.3 degrees Celsius, oxygen saturation is 97% on room air. GENERAL: The patient appears normally developed, appears stated age, no distress. HEENT: Her face is normocephalic and atraumatic. Normal eyelids, normal conjunctivae. NECK: Supple. LUNGS: Normal respiratory effort. CARDIOVASCULAR: Pulses are normal. ABDOMEN: Nondistended. SKIN: No skin rash. PSYCHIATRIC: Normal mood. She is awake, alert and oriented to person, place and time. Her attention is normal. Knowledge is appropriate. Comprehension is intact. She has no aphasia, no dysarthria. No visual defect on confrontation. Pupils are symmetric. Extraocular muscles are intact. Facial sensation is intact. No facial asymmetry. Intact hearing. Palate is symmetric. Good shoulder shrug. Tongue is midline. Gait evaluation deferred. Coordination: No tremor, no ataxia with [id number] testing. Sensation is intact to light touch. Muscle tone is normal. Muscle examination no focal weakness, reflexes, negative Checo sign and no ankle clonus. DIAGNOSTIC TESTING AND LABORATORY VALUES: WBC 7.75, hemoglobin 12.7, platelet count is 196. INR is 1.0. Sodium 141, potassium 4.8, chloride 105, BUN is 20, creatinine 1.19, glucose 123. Magnesium was low at 1.7, AST and ALT are normal, alkaline phosphatase is normal. Troponin is negative. Urinalysis was clear, 1+ leukocyte esterase, 10-30 WBCs, 10-20 epithelial cells, 1+ bacteria. Urine culture is pending. MRI of the brain showed no acute intracranial abnormality. Age-related involutional change noting mild microangiopathic disease. No hemorrhage or mass effect. No restricted diffusion to suggest acute ischemia. No enhancing mass lesion. Head and neck CTA showed no high-grade stenosis or occlusion within the [place]. No significant stenosis or occlusion or dissection within the carotid or vertebral arteries. ASSESSMENT AND PLAN: A 64-year-old woman with a history of stroke on Plavix as well as other multiple medical comorbidities, admitted for a brief period of amnesia yesterday. She does have a prior history of transient global amnesia. Although odd TGA or transient global amnesia often does not repeat itself. However, though there has been case reports of recurrence. I do not believe this event was vascular in etiology. Recommend to continue current dose of Plavix. My recommendation going forward will be to obtain an ambulatory EEG as an outpatient. I will certainly help coordinate this. Otherwise, no additional neurological workup at this time. Please call with any other additional questions or concerns. WHITLEY
[2020-09-17] MEDS: lisinopril 40 MG TAB PO SCH (12:20)
[2020-09-17] MEDS: FOLIC ACID 400 MCG TAB PO SCH (12:20)
[2020-09-17] MEDS: CYANOCOBALAMIN 500 MCG TABLET (VITAMIN B-12) PO SCH (12:20)
[2020-09-17] MEDS: PYRIDOXINE HCL 50 MG TAB PO SCH (12:20)
--- NOTE | 2020-09-17 14:32 | Hospitalist Progress Note ---
Date of Service September 17, 2020 Assessment & Plan (1) Transient confusion: Patient presented with transient episode of confusion, Did not have any slurred speech, no weakness or paresthesia, symptom 10-15 minutes, no loss of consciousness or syncope Patient does not have any recollection from that brief episode, Per , patient was not able to answer question, unable to follow any instructions, Not had any seizure-like episode, no bladder or bowel incontinence Appreciate input from neurology Patient reports had similar symptoms in 2019, that time patient was diagnosed with small lacunar stroke started on aspirin and Plavix Detailed neuro exam, MRI /CT of brain found to be unremarkable, EEG shows no seizure-like activity outpatient 24-hour EEG recommended: Urine tract infection: UA positive, patient denies of any urinary symptoms, Urine culture ordered Added on IV Rocephin monitor CKD stage III: Creatinine approximate baseline, will monitor Disposition: Monitor overnight in telemetry plan for discharge home tomorrow morning plan of care discussed with patient and her in detail 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 his usually with him for all doctors visits/ groceries Counseling provided that it will be better for patient not to drive still having the 24-hour EEG Disposition: Possible discharge home tomorrow Admission and Anticipated Discharge Date Admission Date: September 16, 2020 Subjective Follow-up visit for transient amnesia, urinary tract infection: Patient reports she has been feeling fine since admission, did not had any recurrence of episode No weakness or paresthesia, normal speech, no headache or blurred vision Walking independently, no complaint of fever or chills, Denies of any symptoms no increased frequency or dysuria, no nausea appetite is fair present at bedside, Patient hoping to be discharged home soon Review of Systems Review of Systems: All systems reviewed & are unremarkable except as noted in Subjective Physical Exam Physical Exam: Physical exam: General: No acute distress, alert awake oriented x3 HEENT: PERRLA, EOMI, Heart: Regular S1-S2, no carotid bruit, no JVD, no lower extremity edema Lungs: Clear to auscultate, no wheeze or rales Abdomen: Soft nontender, no organomegaly Extremity: No cyanosis, no deformity, normal strength 5 out of 5 with upper and lower Neuro: No focal neurological deficit normal speech, normal visual field, Motor strength : normal both upper and lower extremity, sensation intact Psych: Alert awake oriented x3, normal affect Results & Data Results & Data ([facility]) Vital Signs (Past 12 Hours) Vital Signs Temp Pulse Pulse Resp BP Pulse Ox 09/17/20 11:25 36.9 C 63 19 132/79 95 09/17/20 09:59 60 09/17/20 07:52 36.8 C 72 19 127/78 94 09/17/20 03:51 36.3 C L 62 16 116/72 97
--- NOTE | 2020-09-17 15:22 | Electrocardiogram Report ---
Test Reason : Blood Pressure : / mmHG Vent. Rate : 064 BPM Atrial Rate : 064 BPM P-R Int : 192 ms QRS Dur : 088 ms QT Int : 444 ms P-R-T Axes : 027 009 054 degrees QTc Int : 458 ms Poor data quality, interpretation may be adversely affected Normal sinus rhythm Normal ECG When compared with ECG of 20-AUG-2019 14:47, No significant change was found Confirmed by Dex Mendoza ([id number]) on 09/17/2020 3:21:32 PM Referred By: REFERRED SELF Confirmed By:Dex Mendoza
[2020-09-17] MEDS ORDERED: CITALOPRAM 20 MG TAB PO SCH (21:00)
[2020-09-17] MEDS ORDERED: ATORVASTATIN 40 MG TAB PO SCH (21:00)
[2020-09-17] MEDS ORDERED: EZETIMIBE 10 MG TABLET PO SCH (21:00)
[2020-09-18] MEDS: cefTRIAXone SODIUM 2,000 MG in DEXTROSE 5% 50 ML IV SCH (02:22)
[2020-09-18] MEDS: LEVOTHYROXINE SODIUM 100 MCG TABLET PO SCH (05:34)
[2020-09-18 07:30] LABS: Basophils # (auto) 0.04 K/uL (0-0.2); Basophils % (auto) 0.6 %; Eosinophils # (auto) 0.35 K/uL (0-0.5); Eosinophils % (auto) 5.5 %; Hematocrit (blood only) 35.5 % (37-47); Hemoglobin 11.4 g/dL (12.0-16.0); Immature Granulocytes # (auto) 0.01 K/uL (0.00-0.02); Immature Granulocytes % (auto) 0.2 %; Lymphocytes # (auto) 2.28 K/uL (1.2-3.4); Lymphocytes % (auto) 35.6 %; Mean Corpuscular Hemoglobin 26.9 pg (25-34); Mean Corpuscular Hgb Conc 32.1 g/dL (32-36); Mean Corpuscular Volume 83.7 fL (80-100); Mean Platelet Volume 11.1 fL (7.4-10.4); Monocytes # (auto) 0.48 K/uL (0.11-0.59); Monocytes % (auto) 7.5 %; Neutrophils # (auto) 3.25 K/uL (1.4-6.5); Neutrophils % (auto) 50.6 %; Platelet Count 186 K/uL (130-400); RDW Coefficient of Variation 15.8 % (11.5-14.5); RDW Standard Deviation 48.7 fL (36.4-46.3); Red Blood Count 4.24 M/uL (4.2-5.4); White Blood Count 6.41 K/uL (4.8-10.8)
[2020-09-18 07:53] LABS: BUN Creatinine Ratio 15.7 (10-20); Calcium 8.9 mg/dl (8.5-10.1); Creatinine Clr Calc Pharmacy 51.5 ml/min; Est GFR (African American) 52.8 ml/min; Est GFR (Non-African American) 45.5 ml/min; Potassium 4.4 mmol/L (3.5-5.1)
[2020-09-18] MEDS: INSULIN ASPART 100 UNITS/ML 3 ML PEN SC SCH ×2 (08:13→12:29)
[2020-09-18] MEDS: CLOPIDOGREL BISULFATE 75 MG TAB PO SCH (08:14)
[2020-09-18] MEDS: CEROVITE ADV FORMULA TAB PO SCH (08:14)
[2020-09-18] MEDS: cloNIDine HCL 0.1 MG TAB PO SCH (08:15)
[2020-09-18] MEDS: CHOLECALCIFEROL 1,000 UNITS 25 MCG TAB PO SCH (08:15)
[2020-09-18] MEDS: INSULIN GLARGINE SOLOSTAR 100 UNITS/ML 3 ML PEN SC SCH (09:30)
[2020-09-18] MEDS: carvediloL 3.125 MG TAB PO SCH (10:15)
[2020-09-18] MEDS: FOLIC ACID 400 MCG TAB PO SCH (12:30)
[2020-09-18] MEDS: PYRIDOXINE HCL 50 MG TAB PO SCH (12:30)
[2020-09-18] MEDS: CYANOCOBALAMIN 500 MCG TABLET (VITAMIN B-12) PO SCH (12:30)
[2020-09-18] MEDS: lisinopril 40 MG TAB PO SCH (12:30)
--- NOTE | 2020-09-18 13:31 | Electroencephalogram ---
EEG Procedure Note Date of Service September 17, 2020 Start / End Times Start Time: 01:00 End Time: 01:[address] Marcelo History A 64 year old woman amnesia. EEG performed for evaluation of epileptiform activity. Home Medication List Medication Instructions Recorded Confirmed Type Ocuvite Adult 50 Plus 1 cap PO QAM 02/19/18 09/16/20 History atorvastatin 80 mg PO QPM 02/19/18 09/16/20 History carvedilol 3.125 mg PO BIDM 02/19/18 09/16/20 History cholecalciferol (vitamin D3) 2,000 unit PO QAM 02/19/18 09/16/20 History [Vitamin D3] citalopram [Celexa] 20 mg PO HS 02/19/18 09/16/20 History clonidine HCl 0.2 mg PO BIDM 02/19/18 09/16/20 History cyanocobalamin (vitamin B-12) 500 mcg PO QDL 02/19/18 09/16/20 History [Vitamin B-12] folic acid 800 mcg PO QDL 02/19/18 09/16/20 History glipizide 2.5 mg PO DAILY 02/19/18 09/16/20 History lisinopril 40 mg PO QDL 02/19/18 09/16/20 History nitroglycerin 0.4 mg SUBLINGUAL DIRECTED PRN 02/19/18 09/16/20 History nystatin-triamcinolone 1 applic TOPICAL BID PRN 02/19/18 09/16/20 History pyridoxine (vitamin B6) [Vitamin 100 mg PO QDL 02/19/18 09/16/20 History B-6] levothyroxine 100 mcg PO DAILYBB 02/11/19 09/16/20 History metformin 500 mg PO BIDM 02/12/19 09/16/20 History clopidogrel 75 mg PO DAILY 08/20/19 09/16/20 History repaglinide 2 mg PO UD 08/20/19 09/16/20 History ezetimibe 10 mg PO HS 09/16/20 09/16/20 History Inpatient Medication List Atorvastatin Calcium (Atorvastatin 40 Mg Tab) 80 mg PO QPM [facility] Stop: 10/17/20 20:59 Last Admin: 09/17/20 20:32 Dose: 80 mg Documented by: [id number] Carvedilol (Carvedilol 3.125 Mg Tab) 3.125 mg PO BIDM [facility] Stop: 10/17/20 07:59 Last Admin: 09/18/20 10:15 Dose: 3.125 mg Documented by: [id number] Admin: 09/17/20 17:35 Dose: 3.125 mg Documented by: [id number] Admin: 09/17/20 08:17 Dose: 3.125 mg Documented by: [id number] Citalopram Hydrobromide (Citalopram 20 Mg Tab) 20 mg PO [facility] Stop: 10/17/20 20:59 Last Admin: 09/17/20 20:32 Dose: 20 mg Documented by: [id number] Clonidine HCl (Clonidine Hcl 0.1 Mg Tab) 0.2 mg PO BIDM [facility] Stop: 10/17/20 07:59 Last Admin: 09/18/20 08:15 Dose: 0.2 mg Documented by: [id number] Admin: 09/17/20 17:31 Dose: 0.2 mg Documented by: [id number] Admin: 09/17/20 08:11 Dose: 0.2 mg Documented by: [id number] Clopidogrel Bisulfate (Clopidogrel Bisulfate 75 Mg Tab) 75 mg PO DAILY [facility] Stop: 10/17/20 08:59 Last Admin: 09/18/20 08:14 Dose: 75 mg Documented by: [id number] Admin: 09/17/20 08:12 Dose: 75 mg Documented by: [id number] Cyanocobalamin (Cyanocobalamin 500 Mcg Tablet (Vitamin B-12)) 500 mcg PO QDL [facility] Stop: 10/17/20 11:29 Last Admin: 09/18/20 12:30 Dose: 500 mcg Documented by: [id number] Admin: 09/17/20 12:20 Dose: 500 mcg Documented by: [id number] Ezetimibe (Ezetimibe 10 Mg Tablet) 10 mg PO [facility] Stop: 10/17/20 20:59 Last Admin: 09/17/20 20:32 Dose: 10 mg Documented by: [id number] Folic Acid (Folic Acid 400 Mcg Tab) 800 mcg PO QDL [facility] Stop: 10/17/20 11:29 Last Admin: 09/18/20 12:30 Dose: 800 mcg Documented by: [id number] Admin: 09/17/20 12:20 Dose: 800 mcg Documented by: [id number] Ceftriaxone Sodium 2,000 mg/ (Dextrose) 70 mls @ 140 mls/hr IV Q24H [facility] Stop: 09/27/20 01:59 Last Infusion: 09/18/20 02:52 Dose: 0 mls/hr Documented by: [id number] Admin: 09/18/20 02:22 Dose: 140 mls/hr Documented by: [id number] Infusion: 09/17/20 03:54 Dose: 0 mls/hr Documented by: [id number] Admin: 09/17/20 03:24 Dose: 140 mls/hr Documented by: [id number] Insulin Aspart (Insulin Aspart 100 Units/Ml 3 Ml Pen) 0 units SC ACHS [facility] Stop: 10/17/20 07:29 Last Admin: 09/18/20 12:29 Dose: 6 units Documented by: [id number] Cosigned by: [id number] Admin: 09/18/20 08:13 Dose: 3 units Documented by: [id number] Cosigned by: [id number] Admin: 09/17/20 20:31 Dose: Not Given Documented by: [id number] Cosigned by: [id number] Admin: 09/17/20 17:31 Dose: 3 units Documented by: [id number] Cosigned by: [id number] Admin: 09/17/20 12:21 Dose: 3 units Documented by: [id number] Cosigned by: [id number] Admin: 09/17/20 08:09 Dose: 1 units Documented by: [id number] Cosigned by: [id number] Insulin Glargine (Insulin Glargine Solostar 100 Units/Ml 3 Ml Pen) 5 units SC BID [facility] Stop: 10/17/20 08:59 Last Admin: 09/18/20 09:30 Dose: 5 units Documented by: [id number] Cosigned by: [id number] Admin: 09/17/20 20:29 Dose: 5 units Documented by: [id number] Cosigned by: [id number] Admin: 09/17/20 09:33 Dose: 5 units Documented by: [id number] Cosigned by: [id number] Levothyroxine Sodium (Levothyroxine Sodium 100 Mcg Tablet) 100 mcg PO DAILYBB [facility] Stop: 10/17/20 06:29 Last Admin: 09/18/20 05:34 Dose: 100 mcg Documented by: [id number] Admin: 09/17/20 06:26 Dose: 100 mcg Documented by: [id number] Lisinopril (Lisinopril 40 Mg Tab) 40 mg PO QDL [facility] Stop: 10/17/20 11:29 Last Admin: 09/18/20 12:30 Dose: 40 mg Documented by: [id number] Admin: 09/17/20 12:20 Dose: 40 mg Documented by: [id number] Multivitamins/Minerals (Cerovite Adv Formula Tab) 1 tab PO QAM [facility] Stop: 10/17/20 08:59 Last Admin: 09/18/20 08:14 Dose: 1 tab Documented by: [id number] Admin: 09/17/20 08:12 Dose: 1 tab Documented by: [id number] Pyridoxine HCl (Pyridoxine Hcl 50 Mg Tab) 100 mg PO QDL [facility] Stop: 10/17/20 11:29 Last Admin: 09/18/20 12:30 Dose: 100 mg Documented by: [id number] Admin: 09/17/20 12:20 Dose: 100 mg Documented by: [id number] Vitamin D (Cholecalciferol 1,000 Units 25 Mcg Tab) 2,000 units PO QAM [facility] Stop: 10/17/20 08:59 Last Admin: 09/18/20 08:15 Dose: 2,000 units Documented by: [id number] Admin: 09/17/20 08:12 Dose: 2,000 units Documented by: [id number] Discontinued Medications Gadobutrol (Gadobutrol 65ml Vial) 9.9 ml IV ONCE ONE Stop: 09/17/20 01:17 Last Admin: 09/17/20 00:43 Dose: 9.9 ml Documented by: [id number] Magnesium Sulfate/Dextrose (Magnesium Sulfate / D5w) 1 gm in 100 mls @ 100 mls/hr IV Q1H [facility] Stop: 09/16/20 22:37 Last Infusion: 09/16/20 22:57 Dose: 0 mls/hr Documented by: [id number] Admin: 09/16/20 22:00 Dose: 100 mls/hr Documented by: [id number] Infusion: 09/16/20 21:50 Dose: 0 mls/hr Documented by: [id number] Admin: 09/16/20 20:50 Dose: 100 mls/hr Documented by: [id number] Lorazepam (Ativan) 0.5 mg in 1 mls @ 1 mls/min IV NOW STA Stop: 09/16/20 23:48 Last Admin: 09/17/20 00:05 Dose: 1 mls/min Documented by: [id number] Sodium Chloride (Nss 1000ml) 1,000 mls @ 75 mls/hr IV .[id number] [facility] Stop: 09/17/20 14:27 Last Infusion: 09/17/20 15:56 Dose: 0 mls/hr Documented by: [id number] Admin: 09/17/20 03:13 Dose: 75 mls/hr Documented by: [id number] Thiamine HCl 500 mg/ Sodium (Chloride) 55 mls @ 208 mls/hr IV 0130 ONE Stop: 09/17/20 01:45 Last Infusion: 09/17/20 03:34 Dose: 0 mls/hr Documented by: [id number] Admin: 09/17/20 03:14 Dose: 208 mls/hr Documented by: [id number] Ioversol (Optiray 350 500ml) 109 ml IV ONCE ONE Stop: 09/16/20 20:00 Last Admin: 09/16/20 20:00 Dose: 109 ml Documented by: [id number] Labetalol HCl (Labetalol Hcl Iv 5 Mg/Ml 20ml) 10 mg IV NOW STA Stop: 09/16/20 20:38 Last Admin: 09/16/20 20:50 Dose: Not Given Documented by: [id number] Description This is a 21 electrode EEG with a single channel dedicated to limited EKG. The electrodes were placed in accordance with the International 10-20 system. REPORT: At the onset of the EEG, the patient is awake. The background activity consist of 10-11 Hz, persistent, posteriorly dominant, moderate amplitude, symmetric and rhythmic activity that is reactive to eye opening. Anteriorly, it consist of a mixture of low voltage indeterminate activity and 15-25 Hz, persistent, low amplitude, symmetric and rhythmic activity. Stepwise intermittent photic stimulation (1-21 Hz) does not induce any abnormalities. Drowsiness is characterized by low amplitude mixed frequency activity, roving eye movements, and decreased eye blinking and muscle artifact. IMPRESSION: This is a normal awake and drowsy EEG. There is no evidence of focal slowing or epileptiform activity.
--- NOTE | 2020-09-18 14:07 | Discharge Summary ---
Date of Service September 18, 2020 Admission HPI Per Admitting Provider DICTATED BY: Mynor Marcelo MD DATE OF ADMISSION: 09/16/2020 CHIEF COMPLAINT: Stroke-like symptoms. HISTORY OF PRESENT ILLNESS: This is a 64-year-old female with past medical history significant for type 2 diabetes, hyperlipidemia, hypothyroidism, hyperhomocysteinemia, carotid artery stenosis, hypertension, history of CVA, history of CAD, history of Takotsubo cardiomyopathy, vitamin D deficiency, chronic kidney disease stage III, history of hirsutism, history of TIA, history of non-ST elevated myocardial infarction, who was brought in because of stroke-like symptoms. Between 7:00 to 8:00 a.m. she had memory loss, she does not remember anything, she does not remember putting on the socks or coming to the hospital. She does not remember getting admitted. Stroke alert was called. Workup was negative, but then her symptoms resolved and she has come back to baseline, but she does not remember that 1-hour period of time. She had a similar episode in the past. She has had many strokes and first stroke she had a short-term memory loss and she had vision problems for 3 weeks. Currently her vision is okay. She is already on Plavix and Zetia. Currently, denies any headache, no blurred visions or double visions, no earache, no runny nose, no sore throat, no cough, no fever, no chills. No difficulty swallowing, no chest pain, no shortness of breath. No imbalance. Ambulating fine. No chest pain. No nausea, no abdominal pain, no diarrhea. Normal bowel and bladder movements. Principal Diagnosis TRANSIENT AMNESIA URINARY TRACT INFECTION : E. coli ACUTE RENAL FAILURE Discharge Exam Physical exam: General: No acute distress, alert awake oriented x3 HEENT: PERRLA, EOMI, Heart: Regular S1-S2, no carotid bruit, no JVD, no lower extremity edema Lungs: Clear to auscultate, no wheeze or rales Abdomen: Soft nontender, no organomegaly Extremity: No cyanosis, no deformity, normal strength 5 out of 5 with upper and lower Neuro: No focal neurological deficit normal speech, normal visual field, Motor strength : normal both upper and lower extremity, sensation intact Psych: Alert awake oriented x3, normal affect Discharge Data Allergies Allergy/AdvReac Type Severity Reaction Status Date / Time amoxicillin [From Augmentin] AdvReac Intermediate Nausea Verified 09/16/20 20:14 clavulanic acid AdvReac Intermediate Nausea Verified 09/16/20 20:14 [From Augmentin] Consultations 09/16/20 20:46 ED Decision to Admit Stat 09/17/20 08:00 Consult Neurology Routine Ordered Studies 09/16/20 19:48 CT angio head w con Stat CT angio neck with con Stat CT head/brain wo con Stat 09/17/20 00:16 MR brain wo/w con Urgent Hospital Course (1) Transient confusion: No further episodes since admission, Patient presented with transient episode of confusion, Did not have any slurred speech, no weakness or paresthesia, symptom 10-15 minutes, no loss of consciousness or syncope Patient does not have any recollection from that brief episode, Per , patient was not able to answer question, unable to follow any instructions, Not had any seizure-like episode, no bladder or bowel incontinence Had similar symptoms 2-3 weeks ago, had visual disturbance, denies of any headache No history of migraine headache MRI of brain/CTA of head and neck unremarkable: EEG shows no seizure-like activity Echo, normal EF no wall motion abnormality Appreciate input from neurology Last admission at [facility] in 2019, with strokelike symptoms, Diagnosed with small lacunar stroke started on aspirin and Plavix outpatient 24-hour EEG recommended: Urine tract infection: Urine culture: E. coli Was treated with IV Rocephin, no evidence of sepsis normal white count no fever or chills She denies of any urinary symptoms. Antibiotic changed to p.o. 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 coli ACUTE RENAL FAILURE Activity: Resume your previous activity Non-emergency contact: Primary Care Provider Call non-emergency contact if: you have any medication questions Follow-up/Referrals: Parris Zavaleta DO [Primary Care Provider] - (Date & Time 09/22/2020 10:20 AM Provider Kenna Ness MD [facility] ) Lita Cobb PA-C [Physician Top Lift And Automatic Window Repairer] - (YOU ARE SCHEDULE FOR EEG AT NEUROLOGY CLINIC , OFFICE WILL CALL WITH DATE AND TIME ) Diet: Heart Healthy [place] Attending Provider Instructions: Please take all medications as instructed on discharge list below. It is recommended that you follow-up with your primary care physician within 1-2 weeks of hospital discharge to ensure you are still doing well. Please call if you have any questions or problems. You can reach a [facility] hospitalist on duty at [facility] 24 hours a day by calling [phone] YOU WILL NEED ASSOCIATE CHIEF NURSE ( ZIO PATCH ) TO ASSESS FOR ANY IRREGULAR HEART RHYTHM CASING THE EPISODES , DR PARRIS GARCIA OFFICE WILL SCHEDULE YOUR RENAL FUNCTION IS WORSENED , DO NOT TAKE LISINOPRIL FOR A WEEK LAB WORK : BASIC METABOLIC PANEL IN A WEEK , CAN START TAKING LISINOPRIL IF RENAL FUNCTION NORMALIZES , DR Olivia Garcia OFFICE WILL FOLLOW UP THE LAB WORK RESULT [place] Director Of Compliance Provider Instructions: Do not take group of medications belonging to NSAIDs group -can cause worsening of your kidney function. List Of these medications includes but not limited to: Aspirin Diclofenac Ibuprofen, Motrin, Advil Toradol,ketorolac Naproxen, Aleve, Naprosyn You can take Tylenol as needed for pain or fever When buying [id number] pain medications please consult with pharmacy if y ou are not sure regarding ingredients, as a lot of the pain medications have combination of NSAIDs and Tylenol. PLEASE TAKE PROBIOTICS ( OVER THE COUNTER ) WHILE TAKING ANTIBIOTICS TO PREVENT DIARRHEA /LOOSE STOOL Pending Studies at Discharge: No Stand-Alone Forms: My [facility], Smoking Cessation Medications and DC Order Prescriptions: New ciprofloxacin HCl [Cipro] 500 mg tablet 500 mg PO BID Qty: 10 RF: 0 Continued atorvastatin 80 mg Tablet 80 mg PO QPM RF: 0 carvedilol 3.125 mg Tablet 3.125 mg PO BIDM RF: 0 clonidine HCl 0.2 mg Tablet 0.2 mg PO BIDM RF: 0 citalopram [Celexa] 20 mg Tablet 20 mg PO HS RF: 0 cyanocobalamin (vitamin B-12) [Vitamin B-12] 500 mcg Tablet 500 mcg PO QDL RF: 0 nystatin-triamcinolone 100,000-0.1 unit/g-% Cream 1 applic TOPICAL BID PRN (Reason: Skin Irritation) RF: 0 nitroglycerin 0.4 mg Tablet, Sublingual 0.4 mg Sublingual DIRECTED PRN (Reason: Chest Pain) RF: 0 pyridoxine (vitamin B6) [Vitamin B-6] 100 mg Tablet 100 mg PO QDL RF: 0 glipizide 5 mg Tablet 2.5 mg PO DAILY RF: 0 folic acid 800 mcg Tablet 800 mcg PO QDL RF: 0 cholecalciferol (vitamin D3) [Vitamin D3] 2,000 unit Capsule 2,000 unit PO QAM RF: 0 Ocuvite Adult 50 Plus 250-5-1 mg Capsule 1 cap PO QAM RF: 0 levothyroxine 100 mcg tablet 100 mcg PO DAILYBB RF: 0 metformin 1,000 mg tablet 500 mg PO BIDM RF: 0 repaglinide 2 mg tablet 2 mg PO UD RF: 0 clopidogrel 75 mg tablet 75 mg PO DAILY RF: 0 ezetimibe 10 mg tablet 10 mg PO HS RF: 0 Discontinued lisinopril 40 mg Tablet 40 mg PO QDL RF: 0 Discharge Orders: Discharge Order (Routine); Ordered 09/18/20 Ordered By: Belen Laureano/Other Patient Handouts: Managing Type 2 Diabetes, A1C Admission Data Admit Date/Time: 09/16/20 22:43 Attending Provider: Belen Brody Admit Provider: Mynor Marcelo Primary Care Provider: Parris Zavaleta Other Providers: Mynor Marcelo ; Lita Cobb ; Pradip Rees ; Lita Arechiga ; John Rodriges Other Interventions: Discharge Summary Assessment (RN) Last Done: 09/18/20 13:36
== END 2020-09-18 14:10 | disposition home or self-care (01) | DRG 948 ==
LOC: ED 19:40 → 2S 22:43 → SUATTDRO 22:43 → 2S 23:38

== ENCOUNTER 2021-01-10 23:16 | Inpatient (IN) ==
[2021-01-10] MEDS ORDERED: fentaNYL citrate 100 MCG/2 ML VIAL IV STA ×2 (23:30→23:47)
[2021-01-10] MEDS ORDERED: STAT IV Infusion **Titration per Protocol STA (23:30)
[2021-01-10] MEDS ORDERED: ONDANSETRON INJ 2 MG/ML 2 ML VIAL IV STA (23:30)
[2021-01-10] MEDS ORDERED: NITROGLYCERIN/D5W 100 MCG/ML BTL ONE (23:33)
--- NOTE | 2021-01-10 23:40 | Emergency Department Note ---
History of Present Illness General Chief complaint: Chest Pain Stated complaint: CHEST PAIN Time Seen by Provider: 01/10/21 23:26 Source: patient Mode of arrival: ambulatory Limitations: no limitations History of Present Illness Provider complaint: chest pain Onset (ago): hour(s) less than 1 Location: chest Radiation: neck and extremity Severity: severe Pain Consistency: + constant Maximum Pain Intensity: 9 Current Pain Intensity: 9 Quality: + constant Relieved By: + none Exacerbated By: + movement Associated symptoms: + denies other symptoms Treatments prior to arrival: splint and other (nitro) This is a 65 yo female who presents to the ER complaining of chest pain. Symptoms began while walking up the steps to go to bed at 1045 pm. Patient states she is most concerned for a possible heart attack as she has had one previously. No stents placed. Patient has also had a prior stroke. Patient denies any other recent symptoms. No recent URI, fevers/chills. Patient states pain radiates into her neck and RUE. MIld nausea and diaphoresis initially. Patient states she vomited on arrival here. Patient states she took 4 low dose ASA and two nitro at home without relief and came to the ER. Patient does follow with cardiology routinely. No recent cardiac testing. No change in medications. Pt seen during a time of high acuity and national emergency pandemic while wearing PPE. Home Medications Medication Instructions Recorded Confirmed Type atorvastatin 80 mg tablet 80 mg PO QPM 02/19/18 01/11/21 History carvedilol 3.125 mg tablet 3.125 mg PO BIDM 02/19/18 01/11/21 History cholecalciferol (vitamin D3) 50 2,000 unit PO QAM 02/19/18 01/11/21 History mcg (2,000 unit) capsule (Vitamin D3) citalopram 20 mg tablet (Celexa) 20 mg PO HS 02/19/18 01/11/21 History clonidine HCl 0.2 mg tablet 0.2 mg PO BIDM 02/19/18 01/11/21 History cyanocobalamin (vitamin B-12) 500 500 mcg PO QDL 02/19/18 01/11/21 History mcg tablet (Vitamin B-12) folic acid 800 mcg tablet 800 mcg PO QDL 02/19/18 01/11/21 History glipizide 5 mg tablet 2.5 mg PO DAILY 02/19/18 01/11/21 History nitroglycerin 0.4 mg sublingual 0.4 mg SUBLINGUAL DIRECTED PRN 02/19/18 01/11/21 History tablet nystatin-triamcinolone 100,000 1 applic TOPICAL BID PRN 02/19/18 01/11/21 History unit/g-0.1 % topical cream pyridoxine (vitamin B6) 100 mg 100 mg PO QDL 02/19/18 01/11/21 History tablet (Vitamin B-6) vit C,E,zinc,copper-yxdoq0m 250 1 cap PO QAM 02/19/18 01/11/21 History mg-lutein 5 mg-zeaxanthin 1 mg capsule (Ocuvite Adult 50 Plus) levothyroxine 100 mcg tablet 100 mcg PO DAILYBB 02/11/19 01/11/21 History metformin 1,000 mg tablet 1,000 mg PO BIDM 02/12/19 01/11/21 History clopidogrel 75 mg tablet 75 mg PO DAILY 08/20/19 01/11/21 History repaglinide 2 mg tablet 2 mg PO UD 08/20/19 01/11/21 History ezetimibe 10 mg tablet 10 mg PO HS 09/16/20 01/11/21 History lisinopril 40 mg tablet 40 mg PO DAILY 01/11/21 01/11/21 History Allergies Allergy/AdvReac Type Severity Reaction Status Date / Time amoxicillin [From Augmentin] AdvReac Intermediate Nausea Verified 01/11/21 00:17 clavulanic acid AdvReac Intermediate Nausea Verified 01/11/21 00:17 [From Augmentin] Past Med/Surg History Medical History (Updated 01/12/21 @ 16:00 by Madiha Chow DO) Amaurosis fugax of left eye (12/06/13) CKD (chronic kidney disease), stage III Coronary artery disease CVA (cerebral infarction) CVA (cerebral vascular accident) Diabetes Diabetes mellitus type 2, controlled, with complications Dyslipidemia Hyperhomocysteinemia Hypertension Hypertension Hypothyroidism Myocardial infarction NSTEMI (non-ST elevation myocardial infarction) TIA (transient ischemic attack) Vitamin D deficiency Surgical History S/P tonsillectomy Family History Mother Diabetes Hypertension Father Prostate cancer Sister Heart disease cardiomyopathy Social History Smoking Status: Never smoker Second Hand Exposure: No; Do You Dip or Chew Tobacco: No; Hx Alcohol Use: No Hx Substance Use: No Preferred Language: Setswana Communication Ability: Effective Senior Power Plant 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 Required: No Beliefs That Will Affect Care: None marital status: Current Living Situation: Spouse current occupational status: unemployed Other Information That Helps Us Care for You: No Feels Safe at Home: Yes Safety Concerns: Feels Safe At This Time Assistive Devices: None Review of Systems A total of 10 systems reviewed and were otherwise negative All systems reviewed & are unremarkable except as noted in HPI & below Physical Exam Vital Signs Vital Signs - 24 hr 01/10/21 23:16 01/10/21 23:38 Temperature 36.9 C Temperature Source Temporal Artery Scan Pulse Rate 78 Respiratory Rate 16 Blood Pressure 206/113 H Blood Pressure Mean 144 Blood Pressure Position Sitting Pulse Oximetry 98 98 Oxygen Delivery Method Room Air Room Air Sepsis Recent Fever Within 48 Hours No Sepsis New/Unexplained Change in Mental Status No Sepsis Action Taken by Nursing No Action Required GENERAL: alert, unwell appearing, well nourished, no distress, non-toxic, slightly diaphoretic and pale EYE EXAM: normal conjunctiva, PERRL and EOM's grossly intact OROPHARYNX: no exudate, no erythema, lips, buccal mucosa, and tongue normal and mucous membranes are moist NECK: supple, no nuchal rigidity, no adenopathy, non-tender LUNGS: Clear to auscultation. Normal chest wall mechanics, no w/r/r HEART: no murmurs, S1 normal and S2 normal ABDOMEN: abdomen soft, non-tender, normo-active bowel sounds, no masses, no rebound or guarding. BACK: Back is symmetrical on inspection and there is no deformity, no midline tenderness, no CVA tenderness. SKIN: no rashes and no bruising UPPER EXTREMITIES: upper extremities are grossly normal. FROM, nml pulses b/l. LOWER EXTREMITIES: No pitting edema. FROM, nml pulses b/l. NEURO EXAM: Normal sensorium, cranial nerves II-XII grossly intact, normal speech, no gross weakness of arms, no gross weakness of legs. Gross sensation intact. Course Course 2330: Updated pt on concerns after comparison to prior EKGs. Code HEART called after my review of the EKG and pt telling me she has chest pain. 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 Singh. 2335: BP trending up again but pt still having pain. 2346: Alerted hospitalist. 2350: Dr. Singh now at bedside. Administered Medications Aspirin (Aspirin 81 Mg Ectab) 81 mg PO QAM ON LICENSE OF [facility] Stop: 02/10/21 08:59 Last Admin: 01/12/21 08:04 Dose: 81 mg Documented by: [id number] Admin: 01/11/21 08:03 Dose: 81 mg Documented by: [id number] Atorvastatin Calcium (Atorvastatin 40 Mg Tab) 80 mg PO QPM [facility] Stop: 02/10/21 20:59 Last Admin: 01/11/21 20:16 Dose: 80 mg Documented by: [id number] Citalopram Hydrobromide (Citalopram 20 Mg Tab) 20 mg PO [facility] Stop: 02/10/21 20:59 Last Admin: 01/11/21 20:16 Dose: 20 mg Documented by: [id number] Clopidogrel Bisulfate (Clopidogrel Bisulfate 75 Mg Tab) 75 mg PO DAILY [facility] Stop: 02/10/21 08:59 Last Admin: 01/12/21 08:05 Dose: 75 mg Documented by: [id number] Admin: 01/12/21 08:04 Dose: 75 mg Documented by: [id number] Admin: 01/11/21 08:04 Dose: 75 mg Documented by: [id number] Cyanocobalamin (Cyanocobalamin 500 Mcg Tablet (Vitamin B-12)) 500 mcg PO QDL ON LICENSE OF [facility] Stop: 02/10/21 11:29 Last Admin: 01/12/21 12:12 Dose: 500 mcg Documented by: [id number] Admin: 01/11/21 11:16 Dose: 500 mcg Documented by: [id number] Ezetimibe (Ezetimibe 10 Mg Tablet) 10 mg PO [facility] Stop: 02/10/21 20:59 Last Admin: 01/11/21 20:16 Dose: 10 mg Documented by: [id number] Folic Acid (Folic Acid 400 Mcg Tab) 800 mcg PO QDL ON LICENSE OF [facility] Stop: 02/10/21 11:29 Last Admin: 01/12/21 11:08 Dose: 800 mcg Documented by: [id number] Admin: 01/11/21 11:16 Dose: 800 mcg Documented by: [id number] Insulin Aspart (Insulin Aspart 100 Units/Ml 3 Ml Pen) 0 units SC ACHS ON LICENSE OF [facility] Stop: 02/10/21 07:29 Last Admin: 01/12/21 12:13 Dose: 6 units Documented by: [id number] Cosigned by: [id number] Admin: 01/12/21 08:12 Dose: 7 units Documented by: [id number] Cosigned by: [id number] Admin: 01/11/21 20:16 Dose: 1 units Documented by: [id number] Cosigned by: [id number] Admin: 01/11/21 16:37 Dose: 7 units Documented by: [id number] Cosigned by: [id number] Admin: 01/11/21 12:06 Dose: 7 units Documented by: [id number] Cosigned by: [id number] Admin: 01/11/21 08:04 Dose: 4 units Documented by: [id number] Cosigned by: [id number] Insulin Glargine (Insulin Glargine Solostar 100 Units/Ml 3 Ml Pen) 10 units SC BID ON LICENSE OF [facility] Stop: 02/10/21 20:59 Last Admin: 01/12/21 08:12 Dose: 10 units Documented by: [id number] Cosigned by: [id number] Admin: 01/11/21 20:16 Dose: 10 units Documented by: [id number] Cosigned by: [id number] Levothyroxine Sodium (Levothyroxine Sodium 100 Mcg Tablet) 100 mcg PO DAILYBB ON LICENSE OF [facility] Stop: 02/10/21 06:29 Last Admin: 01/12/21 08:02 Dose: 100 mcg Documented by: [id number] Admin: 01/11/21 07:24 Dose: 100 mcg Documented by: [id number] Lisinopril (Lisinopril 10 Mg Tab) 10 mg PO QAM ON LICENSE OF [facility] Stop: 02/11/21 08:59 Last Admin: 01/12/21 08:02 Dose: 10 mg Documented by: [id number] Multivitamins/Minerals (Cerovite Adv Formula Tab) 1 tab PO QAM ON LICENSE OF [facility] Stop: 02/10/21 08:59 Last Admin: 01/12/21 08:04 Dose: 1 tab Documented by: [id number] Admin: 01/11/21 08:03 Dose: 1 tab Documented by: [id number] Nitroglycerin (Nitroglycerin 2% Ointment 30gm Tube) 1 inch EXT Q6H ON LICENSE OF [facility] Stop: 02/11/21 09:59 Last Admin: 01/12/21 10:49 Dose: 1 inch Documented by: [id number] Pyridoxine HCl (Pyridoxine Hcl 50 Mg Tab) 100 mg PO QDL ON LICENSE OF [facility] Stop: 02/10/21 11:29 Last Admin: 01/12/21 11:08 Dose: 100 mg Documented by: [id number] Admin: 01/11/21 11:17 Dose: 100 mg Documented by: [id number] Discontinued Medications Carvedilol (Carvedilol 6.25 Mg Tab) 6.25 mg PO BID ON LICENSE OF [facility] Stop: 02/11/21 09:29 Last Admin: 01/12/21 10:50 Dose: Not Given Documented by: [id number] Clonidine HCl (Clonidine Hcl 0.1 Mg Tab) 0.2 mg PO BIDM ON LICENSE OF [facility] Stop: 02/10/21 07:59 Last Admin: 01/11/21 07:31 Dose: 0.2 mg Documented by: [id number] Clonidine HCl (Clonidine Hcl 0.1 Mg Tab) 0.1 mg PO BIDM ON LICENSE OF [facility] Stop: 02/10/21 16:59 Last Admin: 01/12/21 08:05 Dose: 0.1 mg Documented by: [id number] Admin: 01/11/21 16:36 Dose: 0.1 mg Documented by: [id number] Fentanyl Citrate (Fentanyl Citrate 100 Mcg/2 Ml Vial) 50 mcg IV NOW STA Stop: 01/10/21 23:31 Last Admin: 01/10/21 23:37 Dose: 50 mcg Documented by: [id number] Fentanyl Citrate (Fentanyl Citrate 100 Mcg/2 Ml Vial) 50 mcg IV NOW STA Stop: 01/10/21 23:48 Last Admin: 01/10/21 23:55 Dose: 50 mcg Documented by: [id number] Fentanyl Citrate (Fentanyl Citrate 100 Mcg/2 Ml Vial) Confirm Administered Dose 100 mcg .ROUTE .STK-MED ONE Stop: 01/10/21 23:53 Last Admin: 01/11/21 00:34 Dose: Not Given Documented by: [id number] Fentanyl Citrate (Fentanyl Citrate 100 Mcg/2 Ml Vial) 25 mcg IV NOW ONE Stop: 01/11/21 03:56 Last Admin: 01/11/21 05:37 Dose: Not Given Documented by: [id number] Heparin Sodium (Porcine) (Heparin (Porcine) 1000 Unit/Ml 10 Ml ([employer] Use Only)) Confirm Administered Dose 10,000 units .ROUTE .STK-MED ONE Stop: 01/10/21 23:52 Last Admin: 01/11/21 00:33 Dose: 8,000 units Documented by: [id number] Heparin Sodium/Dextrose (Heparin 59252 Unit/500 Ml D5w) Confirm Administered Dose 25,000 units IV .STK-MED ONE Stop: 01/11/21 00:23 Last Admin: 01/11/21 01:44 Dose: Not Given Documented by: [id number] Heparin Sodium/Dextrose (Heparin Iv Adult Wt-Based Low-Dose *No* Bolus Protocol) 1 ea IV Q15M NEGRA; Protocol Stop: 02/10/21 01:09 Last Admin: 01/11/21 09:56 Dose: Not Given Documented by: [id number] Admin: 01/11/21 09:55 Dose: Not Given Documented by: [id number] Admin: 01/11/21 07:18 Dose: Not Given Documented by: [id number] Admin: 01/11/21 03:18 Dose: Not Given Documented by: [id number] Admin: 01/11/21 02:50 Dose: 1 ea Documented by: [id number] Admin: 01/11/21 02:50 Dose: 1 ea Documented by: [id number] Admin: 01/11/21 01:40 Dose: 1 ea Documented by: [id number] Heparin Sodium/Sodium Chloride (Heparin In Nss Infusion 1000 Unit/500 Ml (2 U/Ml) Bag) Confirm Administered Dose 3,000 units IV .STK-MED ONE Stop: 01/10/21 23:53 Last Admin: 01/11/21 00:34 Dose: 3,000 units Documented by: [id number] Heparin Sodium/Sodium Chloride (Heparin In Nss Infusion 1000 Unit/500 Ml (2 U/Ml) Bag) Confirm Administered Dose 4,000 units IV .STK-MED ONE Stop: 01/11/21 06:54 Last Admin: 01/11/21 07:18 Dose: Not Given Documented by: [id number] Nitroglycerin/Dextrose (Nitroglycerin/D5w 100 Mcg/Ml) 250 mls @ 12 mls/hr IV .[id number] ON LICENSE OF [facility] Stop: 02/09/21 23:29 Last Infusion: 01/11/21 13:03 Dose: 0 mcg/min, 0 mls/hr Documented by: [id number] Infusion: 01/11/21 10:16 Dose: 15 mcg/min, 9 mls/hr Documented by: [id number] Infusion: 01/11/21 06:54 Dose: 20 mcg/min, 12 mls/hr Documented by: [id number] Cosigned by: [id number] Infusion: 01/11/21 05:41 Dose: 20 mcg/min, 12 mls/hr Documented by: [id number] Admin: 01/11/21 03:49 Dose: 15 mcg/min, 9 mls/hr Documented by: [id number] Cosigned by: [id number] Infusion: 01/11/21 03:49 Dose: 5 mcg/min, 3 mls/hr Documented by: [id number] Cosigned by: [id number] Admin: 01/11/21 02:15 Dose: 5 mcg/min, 3 mls/hr Documented by: [id number] Cosigned by: [id number] Admin: 01/11/21 01:42 Dose: Not Given Documented by: [id number] Sodium Chloride (Nss 1000ml) 1,000 mls @ 100 mls/hr IV .Q10H [facility] Stop: 02/10/21 01:14 Last Infusion: 01/11/21 13:02 Dose: 0 mls/hr Documented by: [id number] Infusion: 01/11/21 09:54 Dose: 0 mls/hr Documented by: [id number] Admin: 01/11/21 02:50 Dose: 100 mls/hr Documented by: [id number] Heparin Sodium/Dextrose (Heparin Sodium/Dextrose) 25,000 units in 500 mls @ 21 mls/hr IV .[id number] NEGRA; Protocol Stop: 01/12/21 15:00 Last Titration: 01/12/21 15:02 Dose: 0 units/hr, 0 mls/hr Documented by: [id number] Cosigned by: [id number] Titration: 01/12/21 08:15 Dose: 1,050 units/hr, 21 mls/hr Documented by: [id number] Cosigned by: [id number] Titration: 01/12/21 07:04 Dose: 1,050 units/hr, 21 mls/hr Documented by: [id number] Cosigned by: [id number] Admin: 01/11/21 23:37 Dose: 1,050 units/hr, 21 mls/hr Documented by: [id number] Cosigned by: [id number] Titration: 01/11/21 23:37 Dose: 1,050 units/hr, 21 mls/hr Documented by: [id number] Cosigned by: [id number] Titration: 01/11/21 18:58 Dose: 1,050 units/hr, 21 mls/hr Documented by: [id number] Cosigned by: [id number] Titration: 01/11/21 09:41 Dose: 1,050 units/hr, 21 mls/hr Documented by: [id number] Cosigned by: [id number] Titration: 01/11/21 07:34 Dose: 0 units/hr, 0 mls/hr Documented by: [id number] Cosigned by: [id number] Titration: 01/11/21 06:54 Dose: 1,350 units/hr, 27 mls/hr Documented by: [id number] Cosigned by: [id number] Titration: 01/11/21 03:24 Dose: 1,350 units/hr, 27 mls/hr Documented by: [id number] Cosigned by: [id number] Admin: 01/11/21 00:45 Dose: 1,350 units/hr, 27 mls/hr Documented by: [id number] Cosigned by: [id number] Nitroglycerin/Dextrose (Nitroglycerin/D5w 100 Mcg/Ml) 250 mls @ 6 mls/hr IV .Q24H NEGRA; Protocol Stop: 02/09/21 23:29 Last Titration: 01/12/21 09:49 Dose: 0 mcg/min, 0 mls/hr Documented by: [id number] Titration: 01/12/21 09:00 Dose: 5 mcg/min, 3 mls/hr Documented by: [id number] Titration: 01/12/21 08:15 Dose: 10 mcg/min, 6 mls/hr Documented by: [id number] Titration: 01/12/21 07:04 Dose: 15 mcg/min, 9 mls/hr Documented by: [id number] Cosigned by: [id number] Admin: 01/11/21 23:38 Dose: 15 mcg/min, 9 mls/hr Documented by: [id number] Cosigned by: [id number] Titration: 01/11/21 23:38 Dose: 15 mcg/min, 9 mls/hr Documented by: [id number] Cosigned by: [id number] Titration: 01/11/21 18:58 Dose: 15 mcg/min, 9 mls/hr Documented by: [id number] Cosigned by: [id number] Titration: 01/11/21 16:29 Dose: 15 mcg/min, 9 mls/hr Documented by: [id number] Titration: 01/11/21 15:56 Dose: 10 mcg/min, 6 mls/hr Documented by: [id number] Titration: 01/11/21 13:36 Dose: 0 mcg/min, 0 mls/hr Documented by: [id number] Titration: 01/11/21 12:09 Dose: 5 mcg/min, 3 mls/hr Documented by: [id number] Admin: 01/11/21 11:10 Dose: 10 mcg/min, 6 mls/hr Documented by: [id number] Cosigned by: [id number] Magnesium Sulfate/Dextrose (Magnesium Sulfate / D5w) 1 gm in 100 mls @ 50 mls/hr IV ONE ONE Stop: 01/12/21 11:35 Last Infusion: 01/12/21 12:50 Dose: 0 mls/hr Documented by: [id number] Admin: 01/12/21 10:46 Dose: 50 mls/hr Documented by: [id number] Insulin Glargine (Insulin Glargine Solostar 100 Units/Ml 3 Ml Pen) 5 units SC BID [facility] Stop: 02/10/21 08:59 Last Admin: 01/11/21 08:04 Dose: 5 units Documented by: [id number] Cosigned by: [id number] Insulin Glargine (Insulin Glargine Solostar 100 Units/Ml 3 Ml Pen) 5 units SC TODAY@1130 ONE Stop: 01/11/21 11:31 Last Admin: 01/11/21 11:18 Dose: 5 units Documented by: [id number] Cosigned by: [id number] Lisinopril (Lisinopril 5 Mg Tab) 5 mg PO NOW ONE Stop: 01/11/21 16:27 Last Admin: 01/11/21 16:50 Dose: 5 mg Documented by: [id number] Metoprolol Succinate (Metoprolol Succ 25mg Ext Rel Tab) 25 mg PO QAM ON LICENSE OF [facility] Stop: 02/10/21 08:59 Last Admin: 01/11/21 08:03 Dose: 25 mg Documented by: [id number] Metoprolol Succinate (Metoprolol Succ 50mg Ext Rel Tab) 50 mg PO QAM ON LICENSE OF [facility] Stop: 02/10/21 09:44 Last Admin: 01/12/21 08:02 Dose: 50 mg Documented by: [id number] Admin: 01/11/21 11:16 Dose: 50 mg Documented by: [id number] Midazolam HCl (Midazolam Hcl 1 Mg/Ml 2ml Vial) Confirm Administered Dose 2 mg .ROUTE .STK-MED ONE Stop: 01/10/21 23:52 Last Increment: 01/11/21 00:34 Dose: 1 mg Documented by: [id number] Miscellaneous (Stat Iv Infusion Titration Per Protocol) 1 ea N/A NOW STA Stop: 01/10/21 23:31 Last Admin: 01/11/21 01:42 Dose: Not Given Documented by: [id number] Nicardipine HCl (Nicardipine Hcl Inj 2.5 Mg/Ml 10 Ml Amp) Confirm Administered Dose 25 mg .ROUTE .STK-MED ONE Stop: 01/10/21 23:52 Last Admin: 01/11/21 00:34 Dose: 25 mg Documented by: [id number] Nitroglycerin/Dextrose (Nitroglycerin/D5w 100 Mcg/Ml Btl) Confirm Administered Dose 25 mg .ROUTE .STK-MED ONE Stop: 01/10/21 23:34 Last Admin: 01/11/21 01:43 Dose: Not Given Documented by: [id number] Nitroglycerin/Dextrose (Nitroglycerin/D5w 100mcg/Ml 20ml Syr) Confirm Administered Dose 2,000 mcg .ROUTE .STK-MED ONE Stop: 01/10/21 23:53 Last Admin: 01/11/21 00:34 Dose: 2,000 mcg Documented by: [id number] Ondansetron HCl (Ondansetron Inj 2 Mg/Ml 2 Ml Vial) 4 mg IV NOW STA Stop: 01/10/21 23:31 Last Admin: 01/10/21 23:41 Dose: 4 mg Documented by: [id number] Ondansetron HCl (Ondansetron Inj 2 Mg/Ml 2 Ml Vial) 4 mg IV ONE ONE Stop: 01/11/21 03:57 Last Admin: 01/11/21 05:38 Dose: Not Given Documented by: [id number] Critical Care Time Critical Care Time: Yes Total Critical Care Time: 35 Critical care of 35 min performed to assess and manage high likelihood of life- threatening ACS, involving labs and imaging performed with assessment to evaluate ACS diagnosis with frequent reassessment. This time includes bedside time, treatment discussions with patient/family/consultants, documentation time and excludes procedure time. Medical Decision Making Differential Diagnosis Differential diagnoses includes but is not limited to acute coronary syndrome, myocardial infarction, pericarditis, pulmonary embolus, aortic dissection, pneumonia, pneumothorax, musculoskeletal, shingles, esophageal. Medical Records Attestation: I reviewed the patient's medical records. Home Medications Current Medication List: was personally reviewed by me Laboratory Data Attestation: I reviewed the patient's lab results. Result diagrams: 01/12/21 04:48 01/12/21 04:48 Lab Results 01/10/21 01/10/21 01/10/21 Range/Units 23:36 23:36 23:36 WBC 9.34 (4.8-10.8) K/uL RBC 4.64 (4.2-5.4) M/uL Hgb 12.1 (12.0-16.0) g/dL Hct 38.6 (37-47) % MCV 83.2 (80-100) fL MCH 26.1 (25-34) pg MCHC 31.3 L (32-36) g/dL RDW Std Deviation 51.6 H (36.4-46.3) fL RDW Coeff of Doreen 17.0 H (11.5-14.5) % Plt Count 230 (130-400) K/uL MPV 10.8 H (7.4-10.4) fL Immature Gran % (Auto) 0.3 % Neut % (Auto) 40.1 % Lymph % (Auto) 49.5 % [place] % (Auto) 5.6 % Eos % (Auto) 3.6 % Baso % (Auto) 0.9 % Neut # (Auto) 3.75 (1.4-6.5) K/uL Lymph # (Auto) 4.62 H (1.2-3.4) K/uL [place] # (Auto) 0.52 (0.11-0.59) K/uL Eos # (Auto) 0.34 (0-0.5) K/uL Baso # (Auto) 0.08 (0-0.2) K/uL Immature Gran # (Auto) 0.03 H (0.00-0.02) K/uL PT 10.3 (9.0-12.0) Seconds INR 1.0 (0.9-1.1) APTT 24.2 (21.0-31.0) Seconds PTT Ratio 0.9 Sodium 142 (136-145) mmol/L Potassium (3.5-5.1) mmol/L Chloride 109 H (98-107) mmol/L Carbon Dioxide 24 (21-32) mmol/L Anion Gap 9.0 (3-11) BUN 18 (7-18) mg/dl Creatinine 1.77 H (0.6-1.2) mg/dl Est Cr Clr Drug Dosing 36.7 ml/min Est GFR ( Amer) 34.1 ml/min Est GFR (Non-Af Amer) 29.4 ml/min BUN/Creatinine Ratio 9.9 L (10-20) Glucose 111 H (70-99) mg/dl Calcium 8.6 (8.5-10.1) mg/dl Magnesium (1.8-2.4) mg/dl Total Bilirubin 0.4 (0.2-1) mg/dl AST (15-37) U/L ALT 28 (12-78) U/L Alkaline Phosphatase 60 (45-117) U/L Total Creatine Kinase (26-192) U/L CK-MB (CK-2) < 1.0 (0.5-3.6) ng/ml Troponin I 0.041 (0-0.045) ng/ml NT-Pro-B Natriuret Pep 186 (0-900) pg/ml Total Protein 8.0 (6.4-8.2) gm/dl Albumin 3.5 (3.4-5.0) gm/dl Globulin 4.5 H (2.5-4.0) gm/dl Albumin/Globulin Ratio 0.8 L (0.9-2) Lipase 257 (73-393) U/L TSH 0.274 L (0.300-4.500) uIu/ml Free T4 1.18 (0.8-1.6) ng/dl COVID-19 Eval Order SARS-CoV-2 (PCR) (Negative) 01/10/21 01/10/21 Range/Units 23:50 23:50 WBC (4.8-10.8) K/uL RBC (4.2-5.4) M/uL Hgb (12.0-16.0) g/dL Hct (37-47) % MCV (80-100) fL MCH (25-34) pg MCHC (32-36) g/dL RDW Std Deviation (36.4-46.3) fL RDW Coeff of Doreen (11.5-14.5) % Plt Count (130-400) K/uL MPV (7.4-10.4) fL Immature Gran % (Auto) % Neut % (Auto) % Lymph % (Auto) % [place] % (Auto) % Eos % (Auto) % Baso % (Auto) % Neut # (Auto) (1.4-6.5) K/uL Lymph # (Auto) (1.2-3.4) K/uL [place] # (Auto) (0.11-0.59) K/uL Eos # (Auto) (0-0.5) K/uL Baso # (Auto) (0-0.2) K/uL Immature Gran # (Auto) (0.00-0.02) K/uL PT (9.0-12.0) Seconds INR (0.9-1.1) APTT (21.0-31.0) Seconds PTT Ratio Sodium (136-145) mmol/L Potassium (3.5-5.1) mmol/L Chloride (98-107) mmol/L Carbon Dioxide (21-32) mmol/L Anion Gap (3-11) BUN (7-18) mg/dl Creatinine (0.6-1.2) mg/dl Est Cr Clr Drug Dosing ml/min Est GFR ( Amer) ml/min Est GFR (Non-Af Amer) ml/min BUN/Creatinine Ratio (10-20) Glucose (70-99) mg/dl Calcium (8.5-10.1) mg/dl Magnesium (1.8-2.4) mg/dl Total Bilirubin (0.2-1) mg/dl AST (15-37) U/L ALT (12-78) U/L Alkaline Phosphatase (45-117) U/L Total Creatine Kinase (26-192) U/L CK-MB (CK-2) (0.5-3.6) ng/ml Troponin I (0-0.045) ng/ml NT-Pro-B Natriuret Pep (0-900) pg/ml Total Protein (6.4-8.2) gm/dl Albumin (3.4-5.0) gm/dl Globulin (2.5-4.0) gm/dl Albumin/Globulin Ratio (0.9-2) Lipase (73-393) U/L TSH (0.300-4.500) uIu/ml Free T4 (0.8-1.6) ng/dl COVID-19 Eval Order Covid[address] [facility] SARS-CoV-2 (PCR) NEGATIVE (Negative) Imaging Data My Impression: X-ray: I interpreted the following studies. Chest: A single view study of the chest was reviewed and was negative for cardiomegaly, focal infiltrate, effusion, pulmonary edema, or wide mediastinum. ECG Data Attestation: I personally reviewed and interpreted this ECG as follows: Indication: + chest pain Rate (beats per minute): 84 Rhythm: + normal sinus ECG Intervals/blocks: + Normal QRS and + Normal QT ECG [place]: + Normal ECG ST segments: + ST depression (III) and + ST elevation (I, II, aVL, Vs) MDM Narrative Patient presents with chest pain and concern for ACS given multiple risk factors, prior [place], ongoing pain and abnormal EKG. COde Heart initiated. Patient given fentanyl in addition for pain as her repeat BP had initially dropped and concern nitro may drop her too far. Labs sent and cxr performed while awaiting interventional cardiology who came to bedside. Pain was improving but not resolved by the time they got to bedside. I do not suspect dissection, pericarditis/myocarditis, PE, tamponade. An order was placed for continuous cardiac monitoring. The monitor shows a rate of _86_ with _normal sinus__ rhythm. Impression & Plan ACS (acute coronary syndrome), Unstable angina Discharge Plan Visit Data Chief Complaint: Chest Pain Stated Complaint: CHEST PAIN ED Provider: Madiha Chow Discharge Problem: ACS (acute coronary syndrome), Unstable angina Patient Disposition: Admitted As Inpatient Discharge Instructions Interventions: ED Discharge Assessment Last Done: 01/11/21 00:01
[2021-01-10 23:47] LABS: Basophils # (auto) 0.08 K/uL (0-0.2); Basophils % (auto) 0.9 %; Eosinophils # (auto) 0.34 K/uL (0-0.5); Eosinophils % (auto) 3.6 %; Hematocrit (blood only) 38.6 % (37-47); Hemoglobin 12.1 g/dL (12.0-16.0); Immature Granulocytes # (auto) 0.03 K/uL (0.00-0.02); Immature Granulocytes % (auto) 0.3 %; Lymphocytes # (auto) 4.62 K/uL (1.2-3.4); Lymphocytes % (auto) 49.5 %; Mean Corpuscular Hemoglobin 26.1 pg (25-34); Mean Corpuscular Hgb Conc 31.3 g/dL (32-36); Mean Corpuscular Volume 83.2 fL (80-100); Mean Platelet Volume 10.8 fL (7.4-10.4); Monocytes # (auto) 0.52 K/uL (0.11-0.59); Monocytes % (auto) 5.6 %; Neutrophils # (auto) 3.75 K/uL (1.4-6.5); Neutrophils % (auto) 40.1 %; Platelet Count 230 K/uL (130-400); RDW Standard Deviation 51.6 fL (36.4-46.3); Red Blood Count 4.64 M/uL (4.2-5.4); White Blood Count 9.34 K/uL (4.8-10.8)
[2021-01-10] MEDS ORDERED: MIDAZOLAM HCL 1 MG/ML 2ML VIAL ONE (23:51)
[2021-01-10] MEDS ORDERED: HEPARIN (PORCINE) 1000 UNIT/ML 10 ML (CATH LAB USE ONLY) ONE (23:51)
[2021-01-10] MEDS ORDERED: niCARdipine HCL INJ 2.5 MG/ML 10 ML AMP ONE (23:51)
[2021-01-10] MEDS ORDERED: fentaNYL citrate 100 MCG/2 ML VIAL ONE (23:52)
[2021-01-10] MEDS ORDERED: NITROGLYCERIN/D5W 100MCG/ML 20ML SYR ONE (23:52)
[2021-01-11 00:03] LABS: Partial Thromboplastin Ratio 0.9; Partial Thromboplastin Time 24.2 Seconds (21.0-31.0); Prothrombin Time 10.3 Seconds (9.0-12.0)
[2021-01-11 00:22] LABS: Alanine Aminotransferase 28 U/L (12-78); Albumin Globulin Ratio 0.8 (0.9-2); Albumin Level 3.5 gm/dl (3.4-5.0); Alkaline Phosphatase 60 U/L (45-117); BUN Creatinine Ratio 9.9 (10-20); Bilirubin,Total 0.4 mg/dl (0.2-1); Blood Urea Nitrogen 18 mg/dl (7-18); Calcium 8.6 mg/dl (8.5-10.1); Carbon Dioxide 24 mmol/L (21-32); Chloride 109 mmol/L (98-107); Creatine Kinase MB < 1.0 ng/ml (0.5-3.6); Creatinine Clr Calc Pharmacy 36.7 ml/min; Est GFR (African American) 34.1 ml/min; Est GFR (Non-African American) 29.4 ml/min; Globulin 4.5 gm/dl (2.5-4.0); Glucose 111 mg/dl (70-99); Lipase 257 U/L (73-393); NT Pro B Type Natriuretic Pept 186 pg/ml (0-900); Sodium 142 mmol/L (136-145); Thyroid Stimulating Hormone 0.274 uIu/ml (0.300-4.500); Troponin I 0.041 ng/ml (0-0.045)
[2021-01-11] MEDS ORDERED: HEPARIN 25000 UNIT/500 ML D5W IV ONE (00:22)
[2021-01-11] MEDS ORDERED: NITROGLYCERIN SL 0.4 MG/TAB TAB SL PRN ×2 (00:25→02:32)
[2021-01-11 00:41] LABS: T4 Free Thyroxine 1.18 ng/dl (0.8-1.6)
[2021-01-11] MEDS: HEPARIN SODIUM/DEXTROSE 25,000 UNITS/500 ML BAG IV SCH ×2 (00:45→23:37)
--- NOTE | 2021-01-11 00:48 | Cardiac Catheterization ---
[facility] Data: Artists' Model Cardiac Status Clinical evaluation leading to the procedure CAD Presenation: Unstable angina Diagnostic Physicians Name: Tez Singh MD Closure Device Recommendations: Medical Therapy and/or Counseling Cardiac Cath Procedure Full Procedure Date January 11, 2021 Pre-Procedure Diagnosis Pre-Procedure Diagnosis: Acute Coronary Syndrome AUC Score AUC Score: 7 Post-Procedure Diagnosis Post-Procedure Diagnosis: Severe CAD Procedure(s) Performed Procedure(s) Performed: Coronary Angiography and Left Heart Cath Maintenance Plumber Tez Singh MD Actuarial Technician(s) Eduard Carrillo Estimated Blood Loss Estimated Blood Loss: 5 cc Summary of Findings Heart alert was called at 11:30 PM January 10, 2021 Patient seen and evaluated in the ED and consent forms obtained at 11:50 PM January 10, 2021 The risks alternatives benefits indications therapies particularly the risk of worsening kidney dysfunction to the point of dialysis in this individual was discussed with her. She verbalized understanding and signed the consent form Procedures Left heart catheterization Coronary angiography Indication: Acute coronary syndrome Patient was brought emergently to the cardiac Artists' Model Connected to real-time hemodynamic electrical and respiratory monitoring 6 Gibraltarian sheath secured into the right radial artery 6 Gib[place]tarian JL 3.5 and JR4 used for left and right coronary angiography respectively 6 [place]arian JR4 was used for left ventriculography Coronary findings Right coronary system Large dominant artery The proximal RCA is free of disease The mid RCA has a 30% stenosis The distal RCA, the PDA and the PLV branches are free of disease Left coronary system The left main is of normal caliber without stenosis It trifurcates into the LAD, the ramus intermedius, and the circumflex The circumflex is a large-caliber vessel It gives off a single obtuse marginal branch There is no evidence of epicardial artery stenosis of the left circumflex or the obtuse marginal branch The ramus intermedius is a small caliber vessel without stenosis The proximal and the mid LAD as well as the diagonal branches are free of disease The very distal LAD has an occlusion that appears to be chronic. This portion of the LAD is a very small caliber vessel and not amenable to revascularization Hemodynamics as stated below Post procedure TR band was used to secure hemostasis Conclusion Severe distal LAD disease. This territory of the LAD is such a small caliber vessel and not amenable to revascularization The rest of the coronary system is unremarkable Recommendations Heparin drip for 24 to 48 hours until post peak troponin Dual antiplatelet therapy Beta-minna High intensity statin Resume SRIRAM inhibitor 24 hours post cardiac catheterization to decrease the chances of worsening CKD It is a pleasure and an honor to have participated in the care of your patient Respectfully Tez Singh MD, [facility], [facility] Hemodynamics Rest Ao:: 164/97/1 26 mmHg Final Ao: 164/97/1 26 mmHg LV: 157/0/11 mmHg Recommendations Recommendations: Medical Therapy and/or Counseling Radiation Exposure (mGy) 791mGy Contrast (mls) 100 Disposition ICU I attest to the content of the Intraoperative Record and any orders documented therein. Any exceptions are noted below. PG Care Time/CCT Total # of Minutes Spent Total Time Spent with Patient: Total time spent is greater than 50% in coordination of care (as documented) at patient's floor/unit and/or counseling patient:
[2021-01-11] MEDS ORDERED: SODIUM CHLORIDE 0.9% 1000ML 1,000 ML IV SCH (01:15)
[2021-01-11 01:31] LABS: Basophils # (auto) 0.04 K/uL (0-0.2); Basophils % (auto) 0.3 %; Eosinophils # (auto) 0.26 K/uL (0-0.5); Eosinophils % (auto) 2.1 %; Hematocrit (blood only) 37.4 % (37-47); Hemoglobin 11.8 g/dL (12.0-16.0); Immature Granulocytes # (auto) 0.03 K/uL (0.00-0.02); Immature Granulocytes % (auto) 0.2 %; Lymphocytes # (auto) 2.24 K/uL (1.2-3.4); Lymphocytes % (auto) 18.3 %; Mean Corpuscular Hgb Conc 31.6 g/dL (32-36); Mean Corpuscular Volume 82.6 fL (80-100); Mean Platelet Volume 10.7 fL (7.4-10.4); Monocytes # (auto) 0.64 K/uL (0.11-0.59); Monocytes % (auto) 5.2 %; Neutrophils # (auto) 9.06 K/uL (1.4-6.5); Neutrophils % (auto) 73.9 %; Platelet Count 217 K/uL (130-400); RDW Coefficient of Variation 16.9 % (11.5-14.5); RDW Standard Deviation 50.9 fL (36.4-46.3); Red Blood Count 4.53 M/uL (4.2-5.4); White Blood Count 12.27 K/uL (4.8-10.8)
[2021-01-11] MEDS: Heparin IV Adult Wt-Based Low-Dose *NO* Bolus Protocol IV SCH ×6 (01:40→09:56)
[2021-01-11] MEDS: NITROGLYCERIN/D5W 100MCG/ML 250 ML IV SCH ×5 (01:42→23:38)
[2021-01-11 01:48] LABS: Albumin Level 3.3 gm/dl (3.4-5.0); BUN Creatinine Ratio 11.1 (10-20); Calcium 8.4 mg/dl (8.5-10.1); Creatinine Clr Calc Pharmacy 41.1 ml/min; Est GFR (African American) 38.8 ml/min; Est GFR (Non-African American) 33.5 ml/min; Potassium 4.6 mmol/L (3.5-5.1)
[2021-01-11 01:53] LABS: Albumin Globulin Ratio 0.8 (0.9-2); Bilirubin,Total 0.4 mg/dl (0.2-1); Creatine Kinase MB 4.7 ng/ml (0.5-3.6); Globulin 4.1 gm/dl (2.5-4.0); Total Protein 7.4 gm/dl (6.4-8.2)
[2021-01-11] MEDS ORDERED: NYSTATIN/TRIAMCIN CR 15 GM TUBE EXT PRN (02:32)
[2021-01-11] MEDS ORDERED: ICU PROTOCOL FOR HYPERGLYCEMIA PRN (02:32)
[2021-01-11] MEDS ORDERED: CARBOHYDRATES FOR HYPOGLYCEMIA PO PRN (03:00)
[2021-01-11] MEDS ORDERED: GLUCOSE 40% GEL 15 GM TUBE PO PRN (03:00)
[2021-01-11] MEDS ORDERED: DEXTROSE 50% 50 ML SYRINGE IV PRN (03:00)
[2021-01-11] MEDS ORDERED: GLUCOSE 10 TABS/TUBE PO PRN (03:00)
[2021-01-11] MEDS ORDERED: GLUCAGON FOR INJ 1 MG VIAL IM PRN (03:00)
[2021-01-11] MEDS ORDERED: fentaNYL citrate 100 MCG/2 ML VIAL IV ONE (03:55)
[2021-01-11] MEDS ORDERED: ONDANSETRON INJ 2 MG/ML 2 ML VIAL IV ONE (03:56)
--- NOTE | 2021-01-11 05:12 | History and Physical Report ---
DATE OF ADMISSION: 01/11/2021. CHIEF COMPLAINT: Non-ST elevated MT. HISTORY OF PRESENT ILLNESS: A 65-year-old female with a past medical history significant for type 2 diabetes, hyperlipidemia, hypothyroidism, hyperhomocysteinemia, carotid stenosis with history of CVA, hypertension, CAD, history of Takotsubo cardiomyopathy, vitamin D deficiency, chronic kidney disease stage III, history of hirsutism, history of TIA, history of non-ST elevated MT, presents with chest pain and found to have ST elevated MT, status post emergent cardiac catheterization showing distal LAD lesion, which is not amenable to any intervention. The patient says that around 10:30 p.m., she noticed chest pain in the middle of the chest, radiating to the back, at that time, it was 10/10 in severity. Currently, still the pain is there, 5/10 in severity. No other complaints. Denies any shortness of breath or sweating, no dizziness, no headache, no blurred visions, no earache, no runny nose, no sore throat, no cough, no dysphagia. No fevers, no nausea, no abdominal pain, normal bowel and bladder movements. Otherwise, she can ambulate fine. She lives with her and currently, hemodynamically stable. ALLERGIES: AUGMENTIN. PAST MEDICAL HISTORY: As mentioned above. PAST SURGICAL HISTORY: Colonoscopy, tonsillectomy. MEDICATIONS: At home, the patient is on atorvastatin 80 mg p.m., Coreg 3.125 mg p.o. b.i.d., vitamin D 1000 International Units p.o. daily, Celexa 20 mg p.o. at bedtime, clonidine 0.2 mg p.o. b.i.d., Plavix 75 mg p.o. daily, vitamin B12 500 mcg p.o. daily, ezetimibe 10 mg p.o. at bedtime, folic acid 800 mg p.o. daily, glipizide 2.5 mg p.o. daily, levothyroxine 100 mcg p.o. daily, lisinopril 40 mg p.o. daily, metformin 1000 mg p.o. b.i.d., nitroglycerin 0.4 mg sublingual p.r.n., nystatin and triamcinolone topical b.i.d. p.r.n., Ocuvite 500 mg p.o. daily, vitamin B6 100 mg p.o. daily, repaglinide 2 mg p.o. 1 tablet with breakfast and 1 tablet with dinner. FAMILY HISTORY: Significant for cardiomyopathy, blood disorder and diabetes. Father has prostate cancer; mother has diabetes. SOCIAL HISTORY: . No smoking, no alcohol, no drug use. REVIEW OF SYSTEMS: As per HPI. Rest of the review of systems is negative. PHYSICAL EXAMINATION: GENERAL: The patient is obese, not in acute distress. VITAL SIGNS: Temperature 37, pulse 86, respiratory rate 18, blood pressure 136/83, oxygen 94% on 3 liters. HEENT: Head atraumatic. NECK: No JVD. No neck masses. CARDIOVASCULAR: S1 and S2 heard. Regular rate and rhythm. No murmur, no gallop. RESPIRATORY: Normal AP diameter. No accessory muscle use. No wheezing, no crackles. ABDOMEN: Soft, bowel sounds present, nontender, no distention. CENTRAL NERVOUS SYSTEM: Cranial nerves II-XII grossly intact, nonfocal. EXTREMITIES: No edema, no erythema. Right radial cardiac catheterization site obvious drainage seen. LABORATORY DATA: WBC 12.2, hemoglobin 11.8, hematocrit 37.4, platelets 217. PT 10.3, INR 1, APTT 24.2. Sodium 142, potassium 4.6, chloride 110, bicarbonate 23, BUN 18, creatinine 1.59, serum glucose 134, calcium 8.4, total bilirubin 0.4, AST 24, ALT 24, alkaline phosphatase 57, total creatine kinase 77. Troponin I 0.04, lipase 215. TSH 0.27, free T4 1.1. SARS-CoV-2 PCR negative. IMAGING DATA: Chest x-ray, mild congestion. EKG: Normal sinus rhythm at a rate of 77, ST elevations in lead I and aVL. ASSESSMENT AND PLAN: This is a 65-year-old female who presents with chest pain, found to have ST elevated myocardial infarction. 1. ST elevated myocardial infarction, status post cardiac catheterization showing distal left anterior descending lesion not amenable to intervention. Currently on IV heparin. The patient still has some chest pain, 5/10 in severity, on nitro drip. The patient already on Plavix, statin added aspirin. Medical management as per cardiology. Continue heparin IV for 24-48 hours. Closely monitor in the ICU and titrate nitro drip. The patient also on beta minna. We will follow serial enzymes and echocardiograms. 2. History of cerebrovascular accident and transient ischemic attack: Continue on statin and Plavix. 3. Diabetes: We will hold her home medications of repaglinide, metformin and glipizide. We will place on Lantus 5 units b.i.d., insulin sliding scale. We will follow blood sugars, follow HbA1c levels. 4. Hyperlipidemia. Continue high-dose statin, atorvastatin and Zetia. Follow the lipid profile. 5. History of hypertension: Holding lisinopril for the contrast given today and acute kidney injury. Continue on home clonidine and also, currently is on metoprolol. Also on nitro drip. We will monitor the blood pressure. 6. Hypothyroidism: On Synthroid. 7. History of Takotsubo cardiomyopathy: Follow the echo. 8. KARLA on chronic kidney disease stage III: Baseline creatinine of 1.1, currently 1.5. Getting fluids. Avoid nephrotoxic agents. Follow the labs in a.m. 9. Deep venous thrombosis prophylaxis: On IV heparin. DISPOSITION: Closely monitor in the ICU. PT/OT prior to discharge. Social service to help with discharge planning. Level 1 full code. Job ID: [id number] MTDD
--- NOTE | 2021-01-11 05:21 | Critical Care Consultation ---
Date of Consultation January 11, 2021 Assessment & Plan (1) Admitted to intensive care unit: Reason Critically Ill: 65-year-old female with significant past medical history presenting with acute coronary syndrome who is status post PTCA requiring close hemodynamic monitoring with initiation of nitroglycerin and heparin drips. NEURO - * CAM ICU: NEGATIVE CARDIAC/VASCULAR - * Acute coronary syndrome - unstable angina: * Concern EKG changes and patient with significant past medical history of coronary artery disease who is status post PTCA. Patient with distal chronic LAD lesion without possibility for intervention. * Patient to be medically managed at this point. Ongoing nitroglycerin drip and heparin. * Patient with ongoing upper back discomfort on assessment in the ICU. * Repeat EKG without any significant changes appreciated. * Patient with reproducible chest and back pain. * Patient with ongoing complaints of back discomfort. * Blood pressures equal in bilateral upper extremities. * Patient's pain resolved during our conversation with titrating up her nitroglycerin. * I did reach out to interventional cardiology to discuss possible findings during catheterization for concerns for dissection. This is not felt to be likely. Chest x-ray was also reviewed which demonstrated no mediastinal widening. Her symptoms are reproducible. Symptoms have completely resolved during our conversation and with titrating up nitroglycerin. Discussions regarding CTA were had with the patient, and dissection felt to be unlikely at this point. Certainly, if her symptoms worsen or change, CTA may be most likely next option to rule out any other possible etiology at this point. Certainly, a.m. echocardiogram will allow for further evaluation. * We will continue to trend troponins. * Appreciate cardiology management. * Continue home ASCVD Rx previously prescribed. * Monitor on telemetry. RESPIRATORY - * No history of pulmonary disease. * Currently recurring 2 L nasal cannula. * Continue to monitor for concerning desaturations for concern for possible developing pulmonary edema. GI/NUTRITION - * AHA diet RENAL/LYTES - * CKD 3: * Monitor renal function status post IV contrast administration. - * Strict I&Os. ENDO - * DMII * BSGs per unit protocol. ISS --> gtt per unit policy. * Hypothyroidism: * Continue home Rx HEME - * Stable H&H ID - * No concern for infectious contribution at this time. LINES/IV ACCESS - * PIVs x2 DVT PROPHYLAXIS - * Heparin gtt * SCDs I have personally spent 45 minutes of critical care time in the direct management of this patient. This is a life/limb threatening event. This includes time spent evaluating patient, direct bedside care, chart review, placing orders, interpretation of diagnostic studies, discussion with consultants, patient, and family members, as well as other required patient management activities. This time is exclusive of all separately billable procedures, and teaching time and separate from and in addition to any other critical care service time. Thank you for allowing us to participate in the care of this patient. Please refer to my attending physician's documentation for any further recommendations. (2) ACS (acute coronary syndrome): (3) Unstable angina: (4) Hypertension: (5) Hypothyroidism: (6) CKD (chronic kidney disease), stage III: (7) Dyslipidemia: (8) Diabetes mellitus type 2, controlled, with complications: (9) Coronary artery disease: (10) Stroke: (11) CVA (cerebral infarction): (12) Hypertension: (13) Diabetes: (14) Hypertension: History of Present Illness Attending Physician: Enriqueta Helm, History of Present Illness Patient is a 65-year female with a significant past medical history of coronary artery disease, hypertension, hyperlipidemia, diabetes, hypothyroidism, CKD 3, and prior CVA. She reports that she developed an abrupt onset of chest pain with associated RIGHT arm pain with radiation to her back. She contacted her son who instructed her to take aspirin as well as nitroglycerin. Despite 2 doses of sublingual nitroglycerin, the pain did not resolve. Patient had persistent chest discomfort with concern EKG changes while in the emergency department. She did report near complete symptom relief after administration of fentanyl in the emergency department. Patient underwent emergent PTCI which demonstrated significant chronic distal LAD lesion which was not amendable to intervention. Patient placed on nitroglycerin drip and heparin drips. She was admitted to the ICU for ongoing management. Upon assessment in the ICU, the patient is awake, alert, and oriented. Patient is complaining of 5/10 pain in her upper back. She reports that her chest pain is near completely resolved. She states that her symptoms feel similar to prior episode of MA. She has had some associated nausea as well. Nitroglycerin drip has been titrated up. Despite this, the patient has had ongoing chest pain. Upon my assessment bedside, the patient is now on 20 mcg/min of nitroglycerin. She currently denies any complaints of headaches, dizziness, lightheadedness, pleuritic pain, shortness of breath, vomiting, abdominal pain, numbness/weakness to the extremities. She reports her sister suddenly of cardiomyopathy at age 49. She states that she has been evaluated for this in the past and felt to not be applicable. By the end of our conversation, the patient reports that she is completely pain-free at this time. Allergies Allergy/AdvReac Type Severity Reaction Status Date / Time amoxicillin [From Augmentin] AdvReac Intermediate Nausea Verified 01/11/21 00:17 clavulanic acid AdvReac Intermediate Nausea Verified 01/11/21 00:17 [From Augmentin] Home Medications Medication Instructions Recorded Confirmed Type atorvastatin 80 mg tablet 80 mg PO QPM 02/19/18 01/11/21 History carvedilol 3.125 mg tablet 3.125 mg PO BIDM 02/19/18 01/11/21 History cholecalciferol (vitamin D3) 50 2,000 unit PO QAM 02/19/18 01/11/21 History mcg (2,000 unit) capsule (Vitamin D3) citalopram 20 mg tablet (Celexa) 20 mg PO HS 02/19/18 01/11/21 History clonidine HCl 0.2 mg tablet 0.2 mg PO BIDM 02/19/18 01/11/21 History cyanocobalamin (vitamin B-12) 500 500 mcg PO QDL 02/19/18 01/11/21 History mcg tablet (Vitamin B-12) folic acid 800 mcg tablet 800 mcg PO QDL 02/19/18 01/11/21 History glipizide 5 mg tablet 2.5 mg PO DAILY 02/19/18 01/11/21 History nitroglycerin 0.4 mg sublingual 0.4 mg SUBLINGUAL DIRECTED PRN 02/19/18 01/11/21 History tablet nystatin-triamcinolone 100,000 1 applic TOPICAL BID PRN 02/19/18 01/11/21 History unit/g-0.1 % topical cream pyridoxine (vitamin B6) 100 mg 100 mg PO QDL 02/19/18 01/11/21 History tablet (Vitamin B-6) vit C,E,zinc,copper-ysrng2g 250 1 cap PO QAM 02/19/18 01/11/21 History mg-lutein 5 mg-zeaxanthin 1 mg capsule (Ocuvite Adult 50 Plus) levothyroxine 100 mcg tablet 100 mcg PO DAILYBB 02/11/19 01/11/21 History metformin 1,000 mg tablet 1,000 mg PO BIDM 02/12/19 01/11/21 History clopidogrel 75 mg tablet 75 mg PO DAILY 08/20/19 01/11/21 History repaglinide 2 mg tablet 2 mg PO UD 08/20/19 01/11/21 History ezetimibe 10 mg tablet 10 mg PO HS 09/16/20 01/11/21 History lisinopril 40 mg tablet 40 mg PO DAILY 01/11/21 01/11/21 History Patient History Medical History (Updated 01/11/21 @ 05:29 by Rc Angulo PA-C) Amaurosis fugax of left eye (12/06/13) CKD (chronic kidney disease), stage III Coronary artery disease CVA (cerebral infarction) CVA (cerebral vascular accident) Diabetes Diabetes mellitus type 2, controlled, with complications Dyslipidemia Hyperhomocysteinemia Hypertension Hypertension Hypothyroidism Myocardial infarction NSTEMI (non-ST elevation myocardial infarction) TIA (transient ischemic attack) Vitamin D deficiency Surgical History S/P tonsillectomy Family History Mother Diabetes Hypertension Father Prostate cancer Sister Heart disease cardiomyopathy Social History Smoking Status: Never smoker Second Hand Exposure: No; Do You Dip or Chew Tobacco: No; Hx Alcohol Use: No Hx Substance Use: No Preferred Language: Syrian Communication Ability: Effective Sizing Sponger Required: No Beliefs That Will Affect Care: None marital status: Current Living Situation: Spouse current occupational status: unemployed Other Information That Helps Us Care for You: No Feels Safe at Home: Yes Safety Concerns: Feels Safe At This Time Assistive Devices: Glasses Review of Systems Review of Systems: A complete 10 point review of systems was reviewed with the patient with pertinent positives and negatives as per history of present illness. All else were negative. Physical Exam Physical Exam: VITAL SIGNS - Vital signs and nursing notes were reviewed. GENERAL - 65-year-old female appearing her stated age who is in no acute distress. Communicates well with provider and answers questions appropriately. HEAD - NC/AT. EYES - PERRL with EOMI bilaterally. Sclera anicteric. EARS - No deformities of external structures noted on gross examination bilaterally. NOSE - Midline and without cyanosis. No epistaxis or purulent drainage noted. MOUTH/OROPHARYNX - Without perioral cyanosis. Buccal mucosa pink and moist. NECK - Neck with FROM. No nuchal rigidity. LUNGS - Chest wall symmetric without accessory muscle use, intercostals retractions, or central cyanosis. Normal vesicular breath sounds CTA B/L. No wheezes, rales, or rhonchi appreciated. CARDIAC - RRR with S1/S2. No murmur, rubs, or gallops appreciated. Moderate reproducible tenderness to palpation appreciated over the anterior chest wall. TTP noted to the RIGHT-sided upper back overlying the paraspinal muscle distribution. ABDOMEN - Abdominal contour obese without pulsations or visible masses. BS normoactive all four quadrants. No tenderness, palpable masses, hepatosplenomegaly, or ascites noted. EXTREMITIES - No clubbing or peripheral cyanosis. No pretibial edema present. +3/5 radial and dorsalis pedis pulses palpated throughout. +5/5 strength noted in UE/LE bilaterally. NEUROLOGIC - Cranial nerves II through XII grossly intact. Sensory intact to light touch throughout. PSYCH - A&Ox3 and cooperates fully with examiner. Pt is very pleasant and interacts well with examiner. Results & Data Results & Data ([facility]) Vital Signs (Past 12 Hours) Vital Signs Temp Pulse Pulse Resp BP BP Pulse Ox 01/11/21 01:07 36.7 C 81 20 121/67 95 01/11/21 01:00 37 C 86 18 136/83 94 01/10/21 23:45 79 19 168/115 H 97 01/10/21 23:43 82 26 H 170/114 H 96 01/10/21 23:38 98 01/10/21 23:16 36.9 C 78 16 206/113 H 98 01/10/21 23:03 79 28 H 120/85 Coding Level of Care Code Critical Care 1st 30-74 mins Diagnoses Admitted to intensive care unit Z78.9 ACS (acute coronary syndrome) I24.9 Unstable angina I20.0 Hypertension I10 Hypertension type: unspecified Hypothyroidism E03.9 CKD (chronic kidney disease), stage III N18.3 Dyslipidemia E78.5 Diabetes mellitus type 2, controlled, with complications E11.8 Coronary artery disease I25.10 Stroke I63.9 CVA mechanism: unspecified CVA (cerebral infarction) I63.9 Hypertension I10 Diabetes E11.9 Hypertension I10 Time Spent (min) 45 (1) Hypertension Hypertension type: unspecified Qualified Code(s): I10 - Essential (primary) hypertension (2) Stroke CVA mechanism: unspecified Qualified Code(s): I63.9 - Cerebral infarction, unspecified
[2021-01-11 07:09] LABS: Basophils # (auto) 0.03 K/uL (0-0.2); Basophils % (auto) 0.3 %; Eosinophils # (auto) 0.09 K/uL (0-0.5); Eosinophils % (auto) 0.8 %; Hematocrit (blood only) 34.8 % (37-47); Hemoglobin 10.7 g/dL (12.0-16.0); Immature Granulocytes # (auto) 0.03 K/uL (0.00-0.02); Immature Granulocytes % (auto) 0.3 %; Lymphocytes # (auto) 2.69 K/uL (1.2-3.4); Lymphocytes % (auto) 23.8 %; Mean Corpuscular Hemoglobin 25.7 pg (25-34); Mean Corpuscular Hgb Conc 30.7 g/dL (32-36); Mean Corpuscular Volume 83.7 fL (80-100); Mean Platelet Volume 10.4 fL (7.4-10.4); Monocytes # (auto) 0.63 K/uL (0.11-0.59); Monocytes % (auto) 5.6 %; Neutrophils # (auto) 7.84 K/uL (1.4-6.5); Neutrophils % (auto) 69.2 %; Platelet Count 209 K/uL (130-400); Red Blood Count 4.16 M/uL (4.2-5.4); White Blood Count 11.31 K/uL (4.8-10.8)
[2021-01-11] MEDS: LEVOTHYROXINE SODIUM 100 MCG TABLET PO SCH (07:24)
[2021-01-11 07:28] LABS: Partial Thromboplastin Ratio 4.9
[2021-01-11 07:32] LABS: Partial Thromboplastin Time 129.6 Seconds (21.0-31.0)
[2021-01-11 07:39] LABS: BUN Creatinine Ratio 12.4 (10-20); Calcium 8.2 mg/dl (8.5-10.1); Creatinine Clr Calc Pharmacy 47.4 ml/min; Est GFR (African American) 46.1 ml/min; Est GFR (Non-African American) 39.7 ml/min; Magnesium 1.9 mg/dl (1.8-2.4); Potassium 4.6 mmol/L (3.5-5.1)
[2021-01-11 07:40] LABS: Estimated Average Glucose 140 mg/dl; Hemoglobin A1C 6.5 % (4.5-5.6)
[2021-01-11 07:46] LABS: Troponin I 6.21 ng/ml (0-0.045)
--- NOTE | 2021-01-11 07:49 | XRay Report ---
XR chest 1V portable HISTORY: 65 years-old Female Chest pain acute atypical chest pain COMPARISON: Chest radiograph 08/20/2019 TECHNIQUE: Portable AP view of the chest FINDINGS: Cardiomegaly. Pulmonary vascular congestion with mild reticular interstitial densities, new from comp arison. No pneumothorax, large pleural effusion or lobar airspace consolidation. Degenerative changes of the shoulders and spine. IMPRESSION: Cardiomegaly with new reticular interstitial opacities suggestive of mild pulmonary edema versus interstitial pneumonitis. ACT 112: Negative or not required by law. The above report was generated using voice recognition software. It may contain grammatical, syntax o r spelling errors. Electronically signed by: Andry Dawson M.D. 01/11/2021 7:47 AM
[2021-01-11] MEDS ORDERED: cloNIDine HCL 0.1 MG TAB PO SCH (08:00)
[2021-01-11] MEDS: ASPIRIN 81 MG ECTAB PO SCH (08:03)
[2021-01-11] MEDS: CEROVITE ADV FORMULA TAB PO SCH (08:03)
[2021-01-11] MEDS: CLOPIDOGREL BISULFATE 75 MG TAB PO SCH (08:04)
[2021-01-11] MEDS: INSULIN ASPART 100 UNITS/ML 3 ML PEN SC SCH ×4 (08:04→20:16)
--- NOTE | 2021-01-11 08:14 | Electrocardiogram Report ---
Test Reason : Blood Pressure : / mmHG Vent. Rate : 084 BPM Atrial Rate : 084 BPM P-R Int : 200 ms QRS Dur : 086 ms QT Int : 372 ms P-R-T Axes : 063 005 025 degrees QTc Int : 439 ms Normal sinus rhythm Low voltage QRS Anterolateral ST elevation, consider early repolarization, pericarditis, or injury Abnormal ECG When compared with ECG of 16-SEP-2020 20:18, ST elevation now present in Anterolateral leads Confirmed by Ramon Hebert ([id number]) on 01/11/2021 8:14:05 AM Referred By: REFERRED SELF Confirmed By:Ramon Hebert
--- NOTE | 2021-01-11 08:15 | Cardiology Consultation ---
Date of Consultation January 11, 2021 Assessment & Plan (1) ACS (acute coronary syndrome): (2) History of cardioembolic cerebrovascular accident (CVA): (3) Diabetes mellitus type 2, controlled, with complications: (4) Coronary artery disease: The patient should be continued on heparin for an additional 24 hours. I would also continue dual antiplatelet therapy. I ordered an echocardiogram to evaluate LV function. I have increased her metoprolol and at the same time have decreased her clonidine which if possible we should eventually discontinue the clonidine perhaps in favor of an SRIRAM/ARB. We will follow along with you during her hospital stay. I think at this time she could potentially be transferred to the PCU. History of Present Illness Attending Physician: Enriqueta Helm, History of Present Illness This is a 65-year-old female with the past medical history as outlined below. She was admitted last night to the emergency department with chest pain and an elevated troponin. EKG suggested lateral wall ischemia with ST segment elevation. She was taken to the cardiac catheterization lab under heart alert. No intervention was performed. From the notes, the patient had mostly distal LAD disease. Cardiac troponins peaked at 6.2. This morning she is having some mild chest discomfort, but is hemodynamically stable and in no acute distress. Previously, the patient has had a history of multiple TIAs in the past and has been on chronic dual antiplatelet therapy. She is also had a history of a previous non-STEMI in 2014. Past medical history: 1. NSTEMI 10/2014 secondary to 100% LPL occlusion. - otherwise mild nonobstructive CAD - medically managed without PCI due to small caliber of vessel - clinically stable without exertional angina 2. Dyslipidemia - controlled with combination of atorvastatin plus Zetia 3. H/o CVA 2009: Right Thalamus and Anterior Right Occipital LobeStroke -recurrent episode of transient global amnesia without CVA fall 2017 -no evidence of atrial fibrillation per 30 day MCOT 02/2018 4. HTN - controlled 5. 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 Elevated homocystine and positive MTHFR mutation. -homocystine level has normalized with vitamin supplementation recommended. -Oral anticoagulation not recommended by hematology. 7. Obesity - patient commended for weight loss 8. CKD 3 - stable 9. DM-2 : Controlled; most recent A1c 6.7% Allergies Allergy/AdvReac Type Severity Reaction Status Date / Time amoxicillin [From Augmentin] AdvReac Intermediate Nausea Verified 01/11/21 00:17 clavulanic acid AdvReac Intermediate Nausea Verified 01/11/21 00:17 [From Augmentin] Home Medications Medication Instructions Recorded Confirmed Type atorvastatin 80 mg tablet 80 mg PO QPM 02/19/18 01/11/21 History carvedilol 3.125 mg tablet 3.125 mg PO BIDM 02/19/18 01/11/21 History cholecalciferol (vitamin D3) 50 2,000 unit PO QAM 02/19/18 01/11/21 History mcg (2,000 unit) capsule (Vitamin D3) citalopram 20 mg tablet (Celexa) 20 mg PO HS 02/19/18 01/11/21 History clonidine HCl 0.2 mg tablet 0.2 mg PO BIDM 02/19/18 01/11/21 History cyanocobalamin (vitamin B-12) 500 500 mcg PO QDL 02/19/18 01/11/21 History mcg tablet (Vitamin B-12) folic acid 800 mcg tablet 800 mcg PO QDL 02/19/18 01/11/21 History glipizide 5 mg tablet 2.5 mg PO DAILY 02/19/18 01/11/21 History nitroglycerin 0.4 mg sublingual 0.4 mg SUBLINGUAL DIRECTED PRN 02/19/18 01/11/21 History tablet nystatin-triamcinolone 100,000 1 applic TOPICAL BID PRN 02/19/18 01/11/21 History unit/g-0.1 % topical cream pyridoxine (vitamin B6) 100 mg 100 mg PO QDL 02/19/18 01/11/21 History tablet (Vitamin B-6) vit C,E,zinc,copper-[id number] 250 1 cap PO QAM 02/19/18 01/11/21 History mg-lutein 5 mg-zeaxanthin 1 mg capsule (Ocuvite Adult 50 Plus) levothyroxine 100 mcg tablet 100 mcg PO DAILYBB 02/11/19 01/11/21 History metformin 1,000 mg tablet 1,000 mg PO BIDM 02/12/19 01/11/21 History clopidogrel 75 mg tablet 75 mg PO DAILY 08/20/19 01/11/21 History repaglinide 2 mg tablet 2 mg PO UD 08/20/19 01/11/21 History ezetimibe 10 mg tablet 10 mg PO HS 09/16/20 01/11/21 History lisinopril 40 mg tablet 40 mg PO DAILY 01/11/21 01/11/21 History Patient History Medical History Amaurosis fugax of left eye (12/06/13) CKD (chronic kidney disease), stage III Coronary artery disease CVA (cerebral infarction) CVA (cerebral vascular accident) Diabetes Diabetes mellitus type 2, controlled, with complications Dyslipidemia Hyperhomocysteinemia Hypertension Hypertension Hypothyroidism Myocardial infarction NSTEMI (non-ST elevation myocardial infarction) TIA (transient ischemic attack) Vitamin D deficiency Surgical History S/P tonsillectomy Family History Mother Diabetes Hypertension Father Prostate cancer Sister Heart disease cardiomyopathy Social History Smoking Status: Never smoker Second Hand Exposure: No; Do You Dip or Chew Tobacco: No; Hx Alcohol Use: No Hx Substance Use: No Preferred Language: Estonian Communication Ability: Effective Administrative Processor Required: No Beliefs That Will Affect Care: None marital status: Current Living Situation: Spouse current occupational status: unemployed Other Information That Helps Us Care for You: No Feels Safe at Home: Yes Safety Concerns: Feels Safe At This Time Assistive Devices: None Review of Systems Review of Systems: Review of Systems: See HPI for pertinent positives. All other 10 point review of systems are negative. Physical Exam Physical Exam: General: no acute distress and stated age Head: normocephalic, no masses, lesions, tenderness or abnormalities Eyes: conjunctiva are pink and non-injected, sclera clear Neck: supple, no adenopathy, no bruits, normal jugular venous pulse, no hepatojugular reflux Chest: normal shape and normal respiratory effort Lungs: clear to auscultation and percussion Cardiac Exam: - regular rate & rhythm, no murmurs gallops or rubs - normal S1, normal S2 Pulses: 2(+) throughout Abdomen: abdomen soft, non-tender, no abnormal masses and no hepatosplenomegaly Musculoskeletal: no gait disturbance, no joint inflammation, no deforming arthritis Extremities: no edema and no cyanosis Neuro: grossly normal exam Results & Data ([facility]) Vital Signs (Past 12 Hours) Vital Signs Temp Pulse Pulse Resp BP BP Pulse Ox 01/11/21 01:07 36.7 C 81 20 121/67 95 01/11/21 01:00 37 C 86 18 136/83 94 01/10/21 23:45 79 19 168/115 H 97 01/10/21 23:43 82 26 H 170/114 H 96 01/10/21 23:38 98 01/10/21 23:16 36.9 C 78 16 206/113 H 98 01/10/21 23:03 79 28 H 120/85 Laboratory Results Laboratory Results - last 24 hr 01/10/21 01/10/21 01/10/21 23:36 23:36 23:36 WBC 9.34 RBC 4.64 Hgb 12.1 Hct 38.6 MCV 83.2 MCH 26.1 MCHC 31.3 L RDW Std Deviation 51.6 H RDW Coeff of Doreen 17.0 H Plt Count 230 MPV 10.8 H Immature Gran % (Auto) 0.3 Neut % (Auto) 40.1 Lymph % (Auto) 49.5 Stone % (Auto) 5.6 Eos % (Auto) 3.6 Baso % (Auto) 0.9 Neut # (Auto) 3.75 Lymph # (Auto) 4.62 H Stone # (Auto) 0.52 Eos # (Auto) 0.34 Baso # (Auto) 0.08 Immature Gran # (Auto) 0.03 H PT 10.3 INR 1.0 APTT 24.2 PTT Ratio 0.9 Sodium 142 Potassium Chloride 109 H Carbon Dioxide 24 Anion Gap 9.0 BUN 18 Creatinine 1.77 H Est Cr Clr Drug Dosing 36.7 Est GFR ( Amer) 34.1 Est GFR (Non-Af Amer) 29.4 BUN/Creatinine Ratio 9.9 L Glucose 111 H POC Glucose Estimat Average Glucose Hemoglobin A1c Calcium 8.6 Magnesium Total Bilirubin 0.4 AST ALT 28 Alkaline Phosphatase 60 Total Creatine Kinase CK-MB (CK-2) < 1.0 CK/CKMB % Calc Troponin I 0.041 NT-Pro-B Natriuret Pep 186 Total Protein 8.0 Albumin 3.5 Globulin 4.5 H Albumin/Globulin Ratio 0.8 L Triglycerides Cholesterol LDL Cholesterol, Calc VLDL Cholesterol, Calc HDL Cholesterol Cholesterol/HDL Ratio Lipase 257 TSH 0.274 L Free T4 1.18 Nasal Screen MRSA (PCR) COVID-19 Eval Order SARS-CoV-2 (PCR) 01/10/21 01/10/21 01/11/21 23:50 23:50 01:24 WBC 12.27 H RBC 4.53 Hgb 11.8 L Hct 37.4 MCV 82.6 MCH 26.0 MCHC 31.6 L RDW Std Deviation 50.9 H RDW Coeff of Doreen 16.9 H Plt Count 217 MPV 10.7 H Immature Gran % (Auto) 0.2 Neut % (Auto) 73.9 Lymph % (Auto) 18.3 Stone % (Auto) 5.2 Eos % (Auto) 2.1 Baso % (Auto) 0.3 Neut # (Auto) 9.06 H Lymph # (Auto) 2.24 Stone # (Auto) 0.64 H Eos # (Auto) 0.26 Baso # (Auto) 0.04 Immature Gran # (Auto) 0.03 H PT INR APTT PTT Ratio Sodium Potassium Chloride Carbon Dioxide Anion Gap BUN Creatinine Est Cr Clr Drug Dosing Est GFR ( Amer) Est GFR (Non-Af Amer) BUN/Creatinine Ratio Glucose POC Glucose Estimat Average Glucose Hemoglobin A1c Calcium Magnesium Total Bilirubin AST ALT Alkaline Phosphatase Total Creatine Kinase CK-MB (CK-2) CK/CKMB % Calc Troponin I NT-Pro-B Natriuret Pep Total Protein Albumin Globulin Albumin/Globulin Ratio Triglycerides Cholesterol LDL Cholesterol, Calc VLDL Cholesterol, Calc HDL Cholesterol Cholesterol/HDL Ratio Lipase TSH Free T4 Nasal Screen MRSA (PCR) COVID-19 Eval Order Covid19 at [facility] SARS-CoV-2 (PCR) NEGATIVE 01/11/21 01/11/21 01/11/21 01:24 06:53 06:53 WBC 11.31 H RBC 4.16 L Hgb 10.7 L Hct 34.8 L MCV 83.7 MCH 25.7 MCHC 30.7 L RDW Std Deviation 52.0 H RDW Coeff of Doreen 17.0 H Plt Count 209 MPV 10.4 Immature Gran % (Auto) 0.3 Neut % (Auto) 69.2 Lymph % (Auto) 23.8 Stone % (Auto) 5.6 Eos % (Auto) 0.8 Baso % (Auto) 0.3 Neut # (Auto) 7.84 H Lymph # (Auto) 2.69 Stone # (Auto) 0.63 H Eos # (Auto) 0.09 Baso # (Auto) 0.03 Immature Gran # (Auto) 0.03 H PT INR APTT PTT Ratio Sodium 142 141 Potassium 4.6 4.6 Chloride 110 H 111 H Carbon Dioxide 23 24 Anion Gap 9.0 6.0 BUN 18 17 Creatinine 1.59 H 1.38 H Est Cr Clr Drug Dosing 41.1 47.4 Est GFR ( Amer) 38.8 46.1 Est GFR (Non-Af Amer) 33.5 39.7 BUN/Creatinine Ratio 11.1 12.4 Glucose 134 H 166 H POC Glucose Estimat Average Glucose Hemoglobin A1c Calcium 8.4 L 8.2 L Magnesium 1.9 Total Bilirubin 0.4 AST 24 ALT 24 Alkaline Phosphatase 57 Total Creatine Kinase 77 CK-MB (CK-2) 4.7 H CK/CKMB % Calc 6.1 H Troponin I 6.210 H* NT-Pro-B Natriuret Pep Total Protein 7.4 Albumin 3.3 L Globulin 4.1 H Albumin/Globulin Ratio 0.8 L Triglycerides 64 Cholesterol 85 LDL Cholesterol, Calc 21 VLDL Cholesterol, Calc 13 HDL Cholesterol 51 Cholesterol/HDL Ratio 2 Lipase 215 TSH Free T4 Nasal Screen MRSA (PCR) COVID-19 Eval Order SARS-CoV-2 (PCR) 01/11/21 01/11/21 01/11/21 06:53 06:53 07:27 WBC RBC Hgb Hct MCV MCH MCHC RDW Std Deviation RDW Coeff of Doreen Plt Count MPV Immature Gran % (Auto) Neut % (Auto) Lymph % (Auto) Stone % (Auto) Eos % (Auto) Baso % (Auto) Neut # (Auto) Lymph # (Auto) Stone # (Auto) Eos # (Auto) Baso # (Auto) Immature Gran # (Auto) PT INR APTT 129.6 H* PTT Ratio 4.9 Sodium Potassium Chloride Carbon Dioxide Anion Gap BUN Creatinine Est Cr Clr Drug Dosing Est GFR ( Amer) Est GFR (Non-Af Amer) BUN/Creatinine Ratio Glucose POC Glucose 156 H Estimat Average Glucose 140 Hemoglobin A1c 6.5 H Calcium Magnesium Total Bilirubin AST ALT Alkaline Phosphatase Total Creatine Kinase CK-MB (CK-2) CK/CKMB % Calc Troponin I NT-Pro-B Natriuret Pep Total Protein Albumin Globulin Albumin/Globulin Ratio Triglycerides Cholesterol LDL Cholesterol, Calc VLDL Cholesterol, Calc HDL Cholesterol Cholesterol/HDL Ratio Lipase TSH Free T4 Nasal Screen MRSA (PCR) COVID-19 Eval Order SARS-CoV-2 (PCR) 01/11/21 Unknown WBC RBC Hgb Hct MCV MCH MCHC RDW Std Deviation RDW Coeff of Doreen Plt Count MPV Immature Gran % (Auto) Neut % (Auto) Lymph % (Auto) Stone % (Auto) Eos % (Auto) Baso % (Auto) Neut # (Auto) Lymph # (Auto) Stone # (Auto) Eos # (Auto) Baso # (Auto) Immature Gran # (Auto) PT INR APTT PTT Ratio Sodium Potassium Chloride Carbon Dioxide Anion Gap BUN Creatinine Est Cr Clr Drug Dosing Est GFR ( Amer) Est GFR (Non-Af Amer) BUN/Creatinine Ratio Glucose POC Glucose Estimat Average Glucose Hemoglobin A1c Calcium Magnesium Total Bilirubin AST ALT Alkaline Phosphatase Total Creatine Kinase CK-MB (CK-2) CK/CKMB % Calc Troponin I NT-Pro-B Natriuret Pep Total Protein Albumin Globulin Albumin/Globulin Ratio Triglycerides Cholesterol LDL Cholesterol, Calc VLDL Cholesterol, Calc HDL Cholesterol Cholesterol/HDL Ratio Lipase TSH Free T4 Nasal Screen MRSA (PCR) Negative COVID-19 Eval Order SARS-CoV-2 (PCR) Medications Administered Current Inpatient Medications Aspirin (Aspirin 81 Mg Ectab) 81 mg PO QAM [facility] Stop: 02/10/21 08:59 Last Admin: 01/11/21 08:03 Dose: 81 mg Documented by: Atorvastatin Calcium (Atorvastatin 40 Mg Tab) 80 mg PO QPM [facility] Stop: 02/10/21 20:59 Citalopram Hydrobromide (Citalopram 20 Mg Tab) 20 mg PO HS [facility] Stop: 02/10/21 20:59 Clonidine HCl (Clonidine Hcl 0.1 Mg Tab) 0.1 mg PO BIDM [facility] Stop: 02/10/21 16:59 Clopidogrel Bisulfate (Clopidogrel Bisulfate 75 Mg Tab) 75 mg PO DAILY [facility] Stop: 02/10/21 08:59 Last Admin: 01/11/21 08:04 Dose: 75 mg Documented by: Cyanocobalamin (Cyanocobalamin 500 Mcg Tablet (Vitamin B-12)) 500 mcg PO QDL [facility] Stop: 02/10/21 11:29 Dextrose (Dextrose 50% 50 Ml Syringe) 25 - 50 ml IV UD PRN; Protocol PRN Reason: Hypoglycemia Protocol Stop: 02/10/21 02:59 Ezetimibe (Ezetimibe 10 Mg Tablet) 10 mg PO HS [facility] Stop: 02/10/21 20:59 Folic Acid (Folic Acid 400 Mcg Tab) 800 mcg PO QDL [facility] Stop: 02/10/21 11:29 Glucagon (Glucagon For Inj 1 Mg Vial) 1 mg IM UD PRN; Protocol PRN Reason: Hypoglycemia Protocol Stop: 02/10/21 02:59 Glucose (Glucose 40% Gel 15 Gm Tube) 15 - 30 gm PO UD PRN; Protocol PRN Reason: Hypoglycemia Protocol Stop: 02/10/21 02:59 Glucose (Glucose 10 Tabs/Tube) 4 - 8 tabs PO UD PRN; Protocol PRN Reason: Hypoglycemia Protocol Stop: 02/10/21 02:59 Nitroglycerin/Dextrose (Nitroglycerin/D5w 100 Mcg/Ml) 250 mls @ 12 mls/hr IV .[id number] [facility] Stop: 02/09/21 23:29 Last Infusion: 01/11/21 06:54 Dose: 20 mcg/min, 12 mls/hr Documented by: Sodium Chloride (Nss 1000ml) 1,000 mls @ 100 mls/hr IV .Q10H [facility] Stop: 02/10/21 01:14 Last Admin: 01/11/21 02:50 Dose: 100 mls/hr Documented by: Heparin Sodium/Dextrose (Heparin Sodium/Dextrose) 25,000 units in 500 mls @ 0 mls/hr IV .Q0M [facility]; Protocol Stop: 02/10/21 00:44 Last Titration: 01/11/21 07:34 Dose: 0 units/hr, 0 mls/hr Documented by: Insulin Aspart (Insulin Aspart 100 Units/Ml 3 Ml Pen) 0 units SC ACHS [facility] Stop: 02/10/21 07:29 Last Admin: 01/11/21 08:04 Dose: 4 units Documented by: Insulin Glargine (Insulin Glargine Solostar 100 Units/Ml 3 Ml Pen) 5 units SC BID [facility] Stop: 02/10/21 08:59 Last Admin: 01/11/21 08:04 Dose: 5 units Documented by: Levothyroxine Sodium (Levothyroxine Sodium 100 Mcg Tablet) 100 mcg PO DAILYBB [facility] Stop: 02/10/21 06:29 Last Admin: 01/11/21 07:24 Dose: 100 mcg Documented by: Metoprolol Succinate (Metoprolol Succ 50mg Ext Rel Tab) 50 mg PO QAM [facility] Stop: 02/10/21 09:44 Miscellaneous (Icu Protocol For Hyperglycemia) 1 ea N/A PRN PRN; Protocol PRN Reason: Hyperglycemia Protocol Stop: 01/13/21 02:31 Miscellaneous (Carbohydrates For Hypoglycemia ) 15 - 30 gm PO UD PRN PRN Reason: Hypoglycemia Treatment Stop: 02/10/21 02:59 Multivitamins/Minerals (Cerovite Adv Formula Tab) [facility] [place] Stop: 02/10/21 08:59 Last Admin: 01/11/21 08:03 Dose: 1 tab Documented by: Nitroglycerin (Nitroglycerin Sl 0.4 Mg/Tab Tab) 0.4 mg SL PRN PRN PRN Reason: Chest Pain Stop: 02/10/21 00:24 Nystatin/Triamcinolone Acetonide (Nystatin/Triamcin Cr 15 Gm Tube) 1 appln EXT BID PRN PRN Reason: Skin Irritation Stop: 02/10/21 02:31 Pyridoxine HCl (Pyridoxine Hcl 50 Mg Tab) 100 mg PO QDL [facility] Stop: 02/10/21 11:29
--- NOTE | 2021-01-11 08:19 | Electrocardiogram Report ---
Test Reason : Blood Pressure : / mmHG Vent. Rate : 077 BPM Atrial Rate : 077 BPM P-R Int : 188 ms QRS Dur : 086 ms QT Int : 384 ms P-R-T Axes : 061 002 021 degrees QTc Int : 434 ms Normal sinus rhythm Anterolateral ST elevation, consider early repolarization, pericarditis, or injury When compared with ECG of 10-JAN-2021 23:21, No significant change was found Confirmed by Ramon Hebert ([id number]) on 01/11/2021 8:18:56 AM Referred By: REFERRED SELF Confirmed By:Ramon Hebert
--- NOTE | 2021-01-11 08:22 | Electrocardiogram Report ---
Test Reason : Blood Pressure : / mmHG Vent. Rate : 092 BPM Atrial Rate : 092 BPM P-R Int : 172 ms QRS Dur : 082 ms QT Int : 362 ms P-R-T Axes : 046 -14 025 degrees QTc Int : 447 ms Poor data quality, interpretation may be adversely affected Normal sinus rhythm with sinus arrhythmia Anterolateral ST elevation, consider early repolarization, pericarditis, or injury Poor R wave progression, consider anterior [place] vs. lead placement vs. LVH When compared with ECG of 11-JAN-2021 00:49, No significant change Confirmed by Ramon Hebert ([id number]) on 01/11/2021 8:28:31 AM Referred By: REFERRED SELF Confirmed By:Ramon Hebert
--- NOTE | 2021-01-11 08:25 | Electrocardiogram Report ---
Test Reason : Blood Pressure : / mmHG Vent. Rate : 088 BPM Atrial Rate : 088 BPM P-R Int : 174 ms QRS Dur : 084 ms QT Int : 380 ms P-R-T Axes : 042 009 028 degrees QTc Int : 459 ms Poor data quality, interpretation may be adversely affected Normal sinus rhythm Anterolateral ST elevation, consider early repolarization, pericarditis, or injury Abnormal ECG When compared with ECG of 10-JAN-2021 23:43, No significant change Confirmed by Ramon Hebert ([id number]) on 01/11/2021 8:22:16 AM Also confirmed by Ramon Hebert ([id number]), photograph editor Pepito Cochran ([id number]) on 01/11/2021 8:25:18 AM Referred By: REFERRED SELF Confirmed By:Ramon Hebert
[2021-01-11] MEDS ORDERED: METOPROLOL SUCC 25MG EXT REL TAB PO SCH (09:00)
[2021-01-11] MEDS ORDERED: CLOPIDOGREL BISULFATE 75 MG TAB PO SCH (09:00)
[2021-01-11] MEDS ORDERED: ATORVASTATIN 40 MG TAB PO SCH (09:00)
[2021-01-11] MEDS ORDERED: INSULIN GLARGINE SOLOSTAR 100 UNITS/ML 3 ML PEN SC SCH (09:00)
--- NOTE | 2021-01-11 09:39 | Communication Note ---
Date of Service: January 11, 2021 Continues on nitroglycerin secondary to chest pain distal lesion that is unable to be manipulated by PCI. Continue heparin for at least 24 hours. Stable for downgrade to PCU per cardiology, when off nitroglycerin. Coding Level of Care Code None
[2021-01-11] MEDS ORDERED: Nursing to Pharmacy Communication SCH (11:15)
[2021-01-11] MEDS: METOPROLOL SUCC 50MG EXT REL TAB PO SCH (11:16)
[2021-01-11] MEDS: FOLIC ACID 400 MCG TAB PO SCH (11:16)
[2021-01-11] MEDS: CYANOCOBALAMIN 500 MCG TABLET (VITAMIN B-12) PO SCH (11:16)
[2021-01-11] MEDS: PYRIDOXINE HCL 50 MG TAB PO SCH (11:17)
[2021-01-11] MEDS ORDERED: INSULIN GLARGINE SOLOSTAR 100 UNITS/ML 3 ML PEN SC ONE (11:30)
[2021-01-11] MEDS ORDERED: PHARMACY GLYCEMIC MGMT CONSULT PRN (12:21)
--- NOTE | 2021-01-11 12:29 | Pharmacy Report ---
Pharmacy Glycemic Short Note 2 - Date of Service January 11, 2021 - Glycemic Short BSG Results (Last 24 hours): 01/10/21 01/11/21 01/11/21 23:36 01:24 06:53 Glucose 111 H 134 H 166 H POC Glucose 01/11/21 01/11/21 07:27 11:21 Glucose POC Glucose 156 H 185 H OUTPATIENT ANTIDIABETIC REGIMEN: * Repaglinide 2mg before breakfast and evening meal * Glipizide 2.5mg PO daily * Metformin 1gm PO BID ASSESSMENT: * Type 2 diabetic admitted with ACS / UA * Currently admitted to ICU, receiving Nitroglycerin and Heparin infusions, DAPT and beta-blockade * Pharmacy auto-consult generated per ICU hyperglycemia protocol * Will adjust current basal/bolus SQ regimen to weight based "moderate" stress dosing of Novolog while increasing basal insulin dose to "low" dose given only mild elevation in fasting BSG this AM PLAN FOR INPATIENT GLYCEMIC CONTROL: * Hold outpatient oral diabetes medications * Basal insulin * Lantus 10 units SQ BID * Bolus insulin * NovoLog per scale ACHS or Q6hrs while NPO * Goal Range: Low 110 mg/dL - High 140 mg/dL * Correction Factor: 25 mg/dL/unit * Nutritional / Prandial insulin per carb ratio of 1 unit per 8 grams CHO co nsumed PLAN FOR DISCHARGE: * Given A1c 6.5% is at goal, would recommend resuming out-pt regimen upon discharge if no contraindications present.
--- NOTE | 2021-01-11 12:55 | Hospitalist Progress Note ---
Date of Service January 11, 2021 Assessment & Plan (1) ACS (acute coronary syndrome): Plan: Presented with STEMI, sent to lab nurse. Distal LAD lesion but no intervention was able to be perfromed. Continues on medical management including heparin, aspirin, atorvastatin, Plavix, Zetia, Toprol XL. She remains on a nitroglycerin drip to control her pain. This is being weaned off this morning and she is remaining chest pain free. Has a known h/o CAD, h/o CVA and h/o Takotsobus cardiomyopathy. Echo pending. Management of medications per Cardiology. (2) History of cardioembolic cerebrovascular accident (CVA): Plan: recent admission for stroke symptoms without evidence of acute stroke. She has a h/o several strokes in the past as well as episodes of short term memory loss. Cont Lipitor and Plavix per home regimen. (3) CKD (chronic kidney disease), stage III: Plan: Creatinine is around her baseline. Cont current medical therapy, renally dose meds as needed. (4) Diabetes mellitus type 2, controlled, with complications: Plan: Glucose in control on current insulin regimen. Cont current regimen, holding outpatient glipizide and repaglinide. (5) DVT prophylaxis: Plan: Heparin drip Full Code Dispo-cont ICU while on nitro drip [facility] Admission and Anticipated Discharge Date Admission Date: January 11, 2021 Subjective 65 yo STEMI patient with distal LAD lesion. No PCI intervention Continues on medical therapy including nitro drip and remains chest pain free Tolerating PO Myron SOB, palpitations or other issues. Review of Systems Review of Systems: At least ten systems were reviewed and negative except as indicated in HPI above. Physical Exam Physical Exam: CONSTITUTIONAL: WNWD, vitals as above, generally well- appearing EYES: normal conjunctivae, no scleral icterus ENT: external ear and nose normal, oropharynx clear NECK: trachea midline RESPIRATORY: clear to auscultation bilaterally, no crackles, rales or wheezes, normal respiratory effort CARDIOVASCULAR: regular rate and rhythm, S1 and 2 heard without murmurs, gallops or rubs, no JVD, no peripheral edema CHEST: inspection of chest was normal GASTROINTESTINAL: normal bowel sounds, soft, nontender, ND no guarding MUSCULOSKELETAL: strength 5/5 throughout, head is normocephalic and atraumatic, neck supple, normal palpation of chest wall without tenderness SKIN: warm and dry NEUROLOGIC: CN 2-12 grossly intact, normal cognition, normal speech, no tremor, no gross focal deficits. PSYCHIATRIC: alert cooperative and oriented to person, place and time. Euthymic mood, makes good eye contact, language grossly intact, recent and remote memory grossly intact. Results & Data Results & Data ([facility]) Vital Signs (Past 12 Hours) Vital Signs Temp Pulse Pulse Resp BP BP Pulse Ox 01/11/21 09:06 97 H 25 H 131/79 98 01/11/21 08:06 98 H 22 120/79 95 01/11/21 08:00 36.7 C 100 H 01/11/21 06:36 74 164/108 H 99 01/11/21 01:07 36.7 C 81 20 121/67 95 01/11/21 01:00 37 C 86 18 136/83 94 Laboratory Results Short CBC 01/10/21 01/11/21 01/11/21 Range/Units 23:36 01:24 06:53 WBC 9.34 12.27 H 11.31 H (4.8-10.8) K/uL Hgb 12.1 11.8 L 10.7 L (12.0-16.0) g/dL Hct 38.6 37.4 34.8 L (37-47) % Plt Count 230 217 209 (130-400) K/uL BMP 01/10/21 01/11/21 01/11/21 23:36 01:24 06:53 Sodium 142 142 141 Potassium 4.6 4.6 Chloride 109 H 110 H 111 H Carbon Dioxide 24 23 24 BUN 18 18 17 Creatinine 1.77 H 1.59 H 1.38 H Glucose 111 H 134 H 166 H Calcium 8.6 8.4 L 8.2 L Cardiac Enzymes 01/10/21 01/11/21 01/11/21 Range/Units 23:36 01:24 06:53 Total Creatine Kinase 77 (26-192) U/L CK-MB (CK-2) < 1.0 4.7 H (0.5-3.6) ng/ml Troponin I 0.041 6.210 H* (0-0.045) ng/ml Liver Function 01/10/21 01/11/21 Range/Units 23:36 01:24 Total Bilirubin 0.4 0.4 (0.2-1) mg/dl AST 24 (15-37) U/L ALT 28 24 (12-78) U/L Alkaline Phosphatase 60 57 (45-117) U/L Albumin 3.5 3.3 L (3.4-5.0) gm/dl Medications Administered Current Inpatient Medications Aspirin (Aspirin 81 Mg Ectab) 81 mg PO QAM [facility] Stop: 02/10/21 08:59 Last Admin: 01/11/21 08:03 Dose: 81 mg Documented by: Atorvastatin Calcium (Atorvastatin 40 Mg Tab) 80 mg PO QPM [facility] Stop: 02/10/21 20:59 Citalopram Hydrobromide (Citalopram 20 Mg Tab) 20 mg PO HS [facility] Stop: 02/10/21 20:59 Clonidine HCl (Clonidine Hcl 0.1 Mg Tab) 0.1 mg PO BIDM [facility] Stop: 02/10/21 16:59 Clopidogrel Bisulfate (Clopidogrel Bisulfate 75 Mg Tab) 75 mg PO DAILY [facility] Stop: 02/10/21 08:59 Last Admin: 01/11/21 08:04 Dose: 75 mg Documented by: Cyanocobalamin (Cyanocobalamin 500 Mcg Tablet (Vitamin B-12)) 500 mcg PO QDL [facility] Stop: 02/10/21 11:29 Last Admin: 01/11/21 11:16 Dose: 500 mcg Documented by: Dextrose (Dextrose 50% 50 Ml Syringe) 25 - 50 ml IV UD PRN; Protocol PRN Reason: Hypoglycemia Protocol Stop: 02/10/21 02:59 Ezetimibe (Ezetimibe 10 Mg Tablet) 10 mg PO HS [facility] Stop: 02/10/21 20:59 Folic Acid (Folic Acid 400 Mcg Tab) 800 mcg PO QDL [facility] Stop: 02/10/21 11:29 Last Admin: 01/11/21 11:16 Dose: 800 mcg Documented by: Glucagon (Glucagon For Inj 1 Mg Vial) 1 mg IM UD PRN; Protocol PRN Reason: Hypoglycemia Protocol Stop: 02/10/21 02:59 Glucose (Glucose 40% Gel 15 Gm Tube) 15 - 30 gm PO UD PRN; Protocol PRN Reason: Hypoglycemia Protocol Stop: 02/10/21 02:59 Glucose (Glucose 10 Tabs/Tube) 4 - 8 tabs PO UD PRN; Protocol PRN Reason: Hypoglycemia Protocol Stop: 02/10/21 02:59 Heparin Sodium/Dextrose (Heparin Sodium/Dextrose) 25,000 units in 500 mls @ 21 mls/hr IV .[id number] [facility]; Protocol Stop: 02/10/21 00:44 Last Titration: 01/11/21 09:41 Dose: 1,050 units/hr, 21 mls/hr Documented by: Nitroglycerin/Dextrose (Nitroglycerin/D5w 100 Mcg/Ml) 250 mls @ 9 mls/hr IV .Q24H [facility]; Protocol Stop: 02/09/21 23:29 Last Titration: 01/11/21 12:09 Dose: 5 mcg/min, 3 mls/hr Documented by: Insulin Aspart (Insulin Aspart 100 Units/Ml 3 Ml Pen) 0 units SC ACHS [facility] Stop: 02/10/21 07:29 Last Admin: 01/11/21 12:06 Dose: 7 units Documented by: Insulin Glargine (Insulin Glargine Solostar 100 Units/Ml 3 Ml Pen) 10 units SC BID [facility] Stop: 02/10/21 20:59 Levothyroxine Sodium (Levothyroxine Sodium 100 Mcg Tablet) 100 mcg PO DAILYBB [facility] Stop: 02/10/21 06:29 Last Admin: 01/11/21 07:24 Dose: 100 mcg Documented by: Metoprolol Succinate (Metoprolol Succ 50mg Ext Rel Tab) 50 mg PO QAM [facility] Stop: 02/10/21 09:44 Last Admin: 01/11/21 11:16 Dose: 50 mg Documented by: Miscellaneous (Carbohydrates For Hypoglycemia ) 15 - 30 gm PO UD PRN PRN Reason: Hypoglycemia Treatment Stop: 02/10/21 02:59 Miscellaneous Information (Pharmacy Glycemic Mgmt Consult) 1 ea N/A UD PRN PRN Reason: Consult Stop: 02/10/21 12:20 Multivitamins/Minerals (Cerovite Adv Formula Tab) [facility] Stop: 02/10/21 08:59 Last Admin: 01/11/21 08:03 Dose: 1 tab Documented by: Nitroglycerin (Nitroglycerin Sl 0.4 Mg/Tab Tab) 0.4 mg SL PRN PRN PRN Reason: Chest Pain Stop: 02/10/21 00:24 Nystatin/Triamcinolone Acetonide (Nystatin/Triamcin Cr 15 Gm Tube) 1 appln EXT BID PRN PRN Reason: Skin Irritation Stop: 02/10/21 02:31 Pyridoxine HCl (Pyridoxine Hcl 50 Mg Tab) 100 mg PO QDL [facility] Stop: 02/10/21 11:29 Last Admin: 01/11/21 11:17 Dose: 100 mg Documented by:
[2021-01-11 15:43] LABS: Partial Thromboplastin Ratio 1.9
[2021-01-11 15:46] LABS: Partial Thromboplastin Time 48.8 Seconds (21.0-31.0)
[2021-01-11] MEDS ORDERED: lisinopril 5 MG TAB PO ONE (16:26)
[2021-01-11] MEDS: cloNIDine HCL 0.1 MG TAB PO SCH (16:36)
[2021-01-11] MEDS: INSULIN GLARGINE SOLOSTAR 100 UNITS/ML 3 ML PEN SC SCH (20:16)
[2021-01-11] MEDS: ATORVASTATIN 40 MG TAB PO SCH (20:16)
[2021-01-11] MEDS: CITALOPRAM 20 MG TAB PO SCH (20:16)
[2021-01-11] MEDS: EZETIMIBE 10 MG TABLET PO SCH (20:16)
[2021-01-12 05:24] LABS: Basophils # (auto) 0.05 K/uL (0-0.2); Basophils % (auto) 0.4 %; Eosinophils # (auto) 0.16 K/uL (0-0.5); Eosinophils % (auto) 1.4 %; Hematocrit (blood only) 34.5 % (37-47); Hemoglobin 10.8 g/dL (12.0-16.0); Immature Granulocytes # (auto) 0.03 K/uL (0.00-0.02); Immature Granulocytes % (auto) 0.3 %; Lymphocytes # (auto) 2.42 K/uL (1.2-3.4); Lymphocytes % (auto) 20.7 %; Mean Corpuscular Hgb Conc 31.3 g/dL (32-36); Mean Corpuscular Volume 82.9 fL (80-100); Monocytes # (auto) 0.86 K/uL (0.11-0.59); Monocytes % (auto) 7.4 %; Neutrophils # (auto) 8.18 K/uL (1.4-6.5); Neutrophils % (auto) 69.8 %; Platelet Count 197 K/uL (130-400); RDW Standard Deviation 51.7 fL (36.4-46.3); Red Blood Count 4.16 M/uL (4.2-5.4)
[2021-01-12 05:51] LABS: BUN Creatinine Ratio 11.9 (10-20); Calcium 8.6 mg/dl (8.5-10.1); Creatinine Clr Calc Pharmacy 60.2 ml/min; Est GFR (African American) 61.9 ml/min; Est GFR (Non-African American) 53.5 ml/min; Magnesium 1.6 mg/dl (1.8-2.4); Potassium 4.5 mmol/L (3.5-5.1)
[2021-01-12 05:57] LABS: Phosphorus 3.6 mg/dl (2.5-4.9); Troponin I 5.99 ng/ml (0-0.045)
[2021-01-12 07:48] LABS: Partial Thromboplastin Ratio 1.9
[2021-01-12] MEDS: METOPROLOL SUCC 50MG EXT REL TAB PO SCH (08:02)
[2021-01-12] MEDS: LEVOTHYROXINE SODIUM 100 MCG TABLET PO SCH (08:02)
[2021-01-12] MEDS: lisinopril 10 MG TAB PO SCH (08:02)
[2021-01-12] MEDS: CLOPIDOGREL BISULFATE 75 MG TAB PO SCH ×2 (08:04→08:05)
[2021-01-12] MEDS: CEROVITE ADV FORMULA TAB PO SCH (08:04)
[2021-01-12] MEDS: ASPIRIN 81 MG ECTAB PO SCH (08:04)
[2021-01-12] MEDS: cloNIDine HCL 0.1 MG TAB PO SCH (08:05)
[2021-01-12] MEDS: INSULIN GLARGINE SOLOSTAR 100 UNITS/ML 3 ML PEN SC SCH ×2 (08:12→22:31)
[2021-01-12] MEDS: INSULIN ASPART 100 UNITS/ML 3 ML PEN SC SCH ×4 (08:12→22:35)
--- NOTE | 2021-01-12 09:11 | Critical Care Progress Note ---
Date of Service January 12, 2021 Assessment & Plan (1) Admitted to intensive care unit: Plan: Reason Critically Ill: 65-year-old female with significant past medical history presenting with acute coronary syndrome who is status post PTCA requiring close hemodynamic monitoring with initiation of nitroglycerin and heparin drips. NEURO - * CAM ICU: NEGATIVE CARDIAC/VASCULAR - * Acute coronary syndrome - unstable angina: * Concern EKG changes and patient with significant past medical history of coronary artery disease who is status post PTCA. Patient with distal chronic LAD lesion without possibility for intervention. * Continue home ASCVD Rx previously prescribed. * Monitor on telemetry. * Discussed with Cardiology -Stopping nitroglycerin transition to Nitropaste -Discontinue heparin today RESPIRATORY - * No history of pulmonary disease. GI/NUTRITION - * AHA/ADA Type 2 diet RENAL/LYTES - * CKD 3: * Monitor renal function status post IV contrast administration. - * Strict I&Os. ENDO - * DMII * BSGs per unit protocol. ISS --> gtt per unit policy. * Hypothyroidism: * Continue home Rx HEME - * Stable H&H ID - * No concern for infectious contribution at this time. LINES/IV ACCESS - * PIVs x2 DVT PROPHYLAXIS - * Lovenox SubQ * SCDs Critical care will sign off at this time (2) ACS (acute coronary syndrome): (3) Unstable angina: (4) Hypertension: (5) Hypothyroidism: (6) CKD (chronic kidney disease), stage III: (7) Dyslipidemia: (8) Diabetes mellitus type 2, controlled, with complications: (9) Coronary artery disease: (10) Stroke: (11) CVA (cerebral infarction): (12) Diabetes: Admission and Anticipated Discharge Date Admission Date: January 11, 2021 Subjective This morning patient had increasing chest pain when ambulating to bathroom Results & Data Results & Data ([facility]) Vital Signs (Past 12 Hours) Vital Signs Pulse Resp BP Pulse Ox 01/12/21 01:06 88 22 140/90 94 01/12/21 00:09 84 29 H 96 01/11/21 23:06 86 34 H 139/86 93 01/11/21 22:06 88 21 140/92 93 Coding Level of Care Code 98448 Subseq Hosp Care Lvl 3 Diagnoses Admitted to intensive care unit Z78.9 ACS (acute coronary syndrome) I24.9 Unstable angina I20.0 Hypertension I10 Hypertension type: unspecified Hypothyroidism E03.9 CKD (chronic kidney disease), stage III N18.3 Dyslipidemia E78.5 Diabetes mellitus type 2, controlled, with complications E11.8 Coronary artery disease I25.10 Stroke I63.9 CVA mechanism: unspecified CVA (cerebral infarction) I63.9 Diabetes E11.9 (1) Hypertension Hypertension type: unspecified Qualified Code(s): I10 - Essential (primary) hypertension (2) Stroke CVA mechanism: unspecified Qualified Code(s): I63.9 - Cerebral infarction, unspecified
[2021-01-12] MEDS ORDERED: carvediloL 6.25 MG TAB PO SCH (09:30)
[2021-01-12] MEDS ORDERED: MAGNESIUM SULFATE / D5W 1 GM/100 ML BAG IV ONE (09:36)
--- NOTE | 2021-01-12 09:36 | Cardiology Progress Note ---
Date of Service January 12, 2021 Assessment & Plan (1) ACS (acute coronary syndrome): (2) History of cardioembolic cerebrovascular accident (CVA): (3) Diabetes mellitus type 2, controlled, with complications: (4) Coronary artery disease: Plan: I would continue the heparin for an additional 24 hours along with dual antiplatelet therapy. I have added lisinopril to the patient's medical regiment and I will continue to wean her off of clonidine. She was on carvedilol as an outpatient and I am going to switch her from metoprolol to carvedilol which is better for hypertension. Finally, stop the nitro drip and add Nitropaste for now. The patient is okay for the PCU. Admission and Anticipated Discharge Date Admission Date: January 11, 2021 Subjective The patient had an uneventful night. No additional chest pain through the night. The nitroglycerin IV has been slowly weaned and is almost off. Review of Systems Review of Systems: Review of Systems: See HPI for pertinent positives. All other 10 point review of systems are negative. Physical Exam Physical Exam: General: no acute distress and stated age Head: normocephalic, no masses, lesions, tenderness or abnormalities Eyes: conjunctiva are pink and non-injected, sclera clear Neck: supple, no adenopathy, no bruits, normal jugular venous pulse, no hepatojugular reflux Chest: normal shape and normal respiratory effort Lungs: clear to auscultation and percussion Cardiac Exam: - regular rate & rhythm, no murmurs gallops or rubs - normal S1, normal S2 Pulses: 2(+) throughout Abdomen: abdomen soft, non-tender, no abnormal masses and no hepatosplenomegaly Musculoskeletal: no gait disturbance, no joint inflammation, no deforming arthritis Extremities: no edema and no cyanosis Neuro: grossly normal exam Results & Data ([facility]) Vital Signs (Past 12 Hours) Vital Signs Pulse Resp BP Pulse Ox 01/12/21 01:06 88 22 140/90 94 01/12/21 00:09 84 29 H 96 01/11/21 23:06 86 34 H 139/86 93 01/11/21 22:06 88 21 140/92 93 Laboratory Results Laboratory Results - last 24 hr 01/11/21 01/11/21 01/11/21 11:21 15:13 15:13 WBC RBC Hgb Hct MCV MCH MCHC RDW Std Deviation RDW Coeff of Doreen Plt Count MPV Immature Gran % (Auto) Neut % (Auto) Lymph % (Auto) Sanders % (Auto) Eos % (Auto) Baso % (Auto) Neut # (Auto) Lymph # (Auto) Sanders # (Auto) Eos # (Auto) Baso # (Auto) Immature Gran # (Auto) APTT 48.8 H* PTT Ratio 1.9 Sodium Potassium Chloride Carbon Dioxide Anion Gap BUN Creatinine Est Cr Clr Drug Dosing Est GFR ( Amer) Est GFR (Non-Af Amer) BUN/Creatinine Ratio Glucose POC Glucose 185 H Calcium Phosphorus Magnesium Troponin I 10.600 H* 01/11/21 01/11/21 01/11/21 16:25 19:01 20:08 WBC RBC Hgb Hct MCV MCH MCHC RDW Std Deviation RDW Coeff of Doreen Plt Count MPV Immature Gran % (Auto) Neut % (Auto) Lymph % (Auto) Sanders % (Auto) Eos % (Auto) Baso % (Auto) Neut # (Auto) Lymph # (Auto) Sanders # (Auto) Eos # (Auto) Baso # (Auto) Immature Gran # (Auto) APTT PTT Ratio Sodium Potassium Chloride Carbon Dioxide Anion Gap BUN Creatinine Est Cr Clr Drug Dosing Est GFR ( Amer) Est GFR (Non-Af Amer) BUN/Creatinine Ratio Glucose POC Glucose 172 H 154 H Calcium Phosphorus Magnesium Troponin I 10.000 H* 01/12/21 01/12/21 01/12/21 04:48 04:48 07:05 WBC 11.70 H RBC 4.16 L Hgb 10.8 L Hct 34.5 L MCV 82.9 MCH 26.0 MCHC 31.3 L RDW Std Deviation 51.7 H RDW Coeff of Doreen 17.0 H Plt Count 197 MPV 11.0 H Immature Gran % (Auto) 0.3 Neut % (Auto) 69.8 Lymph % (Auto) 20.7 Sanders % (Auto) 7.4 Eos % (Auto) 1.4 Baso % (Auto) 0.4 Neut # (Auto) 8.18 H Lymph # (Auto) 2.42 Sanders # (Auto) 0.86 H Eos # (Auto) 0.16 Baso # (Auto) 0.05 Immature Gran # (Auto) 0.03 H APTT 49.0 H* PTT Ratio 1.9 Sodium 140 Potassium 4.5 Chloride 109 H Carbon Dioxide 24 Anion Gap 7.0 BUN 13 Creatinine 1.08 Est Cr Clr Drug Dosing 60.2 Est GFR ( Amer) 61.9 Est GFR (Non-Af Amer) 53.5 BUN/Creatinine Ratio 11.9 Glucose 157 H POC Glucose Calcium 8.6 Phosphorus 3.6 Magnesium 1.6 L Troponin I 5.990 H* Medications Administered Current Inpatient Medications Aspirin (Aspirin 81 Mg Ectab) 81 mg PO QAM [facility] Stop: 02/10/21 08:59 Last Admin: 01/12/21 08:04 Dose: 81 mg Documented by: Atorvastatin Calcium (Atorvastatin 40 Mg Tab) 80 mg PO QPM [facility] Stop: 02/10/21 20:59 Last Admin: 01/11/21 20:16 Dose: 80 mg Documented by: Carvedilol (Carvedilol 6.25 Mg Tab) 6.25 mg PO BID [facility] Stop: 02/11/21 09:29 Citalopram Hydrobromide (Citalopram 20 Mg Tab) 20 mg PO [facility] Stop: 02/10/21 20:59 Last Admin: 01/11/21 20:16 Dose: 20 mg Documented by: Clopidogrel Bisulfate (Clopidogrel Bisulfate 75 Mg Tab) 75 mg PO DAILY [facility] Stop: 02/10/21 08:59 Last Admin: 01/12/21 08:05 Dose: 75 mg Documented by: Cyanocobalamin (Cyanocobalamin 500 Mcg Tablet (Vitamin B-12)) 500 mcg PO QDL [facility] Stop: 02/10/21 11:29 Last Admin: 01/11/21 11:16 Dose: 500 mcg Documented by: Dextrose (Dextrose 50% 50 Ml Syringe) 25 - 50 ml IV UD PRN; Protocol PRN Reason: Hypoglycemia Protocol Stop: 02/10/21 02:59 Ezetimibe (Ezetimibe 10 Mg Tablet) 10 mg PO [facility] Stop: 02/10/21 20:59 Last Admin: 01/11/21 20:16 Dose: 10 mg Documented by: Folic Acid (Folic Acid 400 Mcg Tab) 800 mcg PO QDL [facility] Stop: 02/10/21 11:29 Last Admin: 01/11/21 11:16 Dose: 800 mcg Documented by: Glucagon (Glucagon For Inj 1 Mg Vial) 1 mg IM UD PRN; Protocol PRN Reason: Hypoglycemia Protocol Stop: 02/10/21 02:59 Glucose (Glucose 40% Gel 15 Gm Tube) 15 - 30 gm PO UD PRN; Protocol PRN Reason: Hypoglycemia Protocol Stop: 02/10/21 02:59 Glucose (Glucose 10 Tabs/Tube) 4 - 8 tabs PO UD PRN; Protocol PRN Reason: Hypoglycemia Protocol Stop: 02/10/21 02:59 Heparin Sodium/Dextrose (Heparin Sodium/Dextrose) 25,000 units in 500 mls @ 21 mls/hr IV .[id number] [facility]; Protocol Stop: 02/10/21 00:44 Last Titration: 01/12/21 08:15 Dose: 1,050 units/hr, 21 mls/hr Documented by: Insulin Aspart (Insulin Aspart 100 Units/Ml 3 Ml Pen) 0 units SC ACHS [facility] Stop: 02/10/21 07:29 Last Admin: 01/12/21 08:12 Dose: 7 units Documented by: Insulin Glargine (Insulin Glargine Solostar 100 Units/Ml 3 Ml Pen) 10 units SC BID [facility] Stop: 02/10/21 20:59 Last Admin: 01/12/21 08:12 Dose: 10 units Documented by: Levothyroxine Sodium (Levothyroxine Sodium 100 Mcg Tablet) 100 mcg PO DAILYBB [facility] Stop: 02/10/21 06:29 Last Admin: 01/12/21 08:02 Dose: 100 mcg Documented by: Lisinopril (Lisinopril 10 Mg Tab) 10 mg PO QAM [facility] Stop: 02/11/21 08:59 Last Admin: 01/12/21 08:02 Dose: 10 mg Documented by: Miscellaneous (Carbohydrates For Hypoglycemia ) 15 - 30 gm PO UD PRN PRN Reason: Hypoglycemia Treatment Stop: 02/10/21 02:59 Miscellaneous Information (Pharmacy Glycemic Mgmt Consult) 1 ea N/A UD PRN PRN Reason: Consult Stop: 02/10/21 12:20 Multivitamins/Minerals (Cerovite Adv Formula Tab) 1 tab PO QAM [facility] Stop: 02/10/21 08:59 Last Admin: 01/12/21 08:04 Dose: 1 tab Documented by: Nitroglycerin (Nitroglycerin Sl 0.4 Mg/Tab Tab) 0.4 mg SL PRN PRN PRN Reason: Chest Pain Stop: 02/10/21 00:24 Nitroglycerin (Nitroglycerin 2% Ointment 30gm Tube) 1 inch EXT Q6H [facility] Stop: 02/11/21 09:59 Nystatin/Triamcinolone Acetonide (Nystatin/Triamcin Cr 15 Gm Tube) 1 appln EXT BID PRN PRN Reason: Skin Irritation Stop: 02/10/21 02:31 Pyridoxine HCl (Pyridoxine Hcl 50 Mg Tab) 100 mg PO QDL [facility] Stop: 02/10/21 11:29 Last Admin: 01/11/21 11:17 Dose: 100 mg Documented by:
[2021-01-12] MEDS: NITROGLYCERIN 2% OINTMENT 30GM TUBE EXT SCH ×3 (10:49→23:40)
[2021-01-12] MEDS: FOLIC ACID 400 MCG TAB PO SCH (11:08)
[2021-01-12] MEDS: PYRIDOXINE HCL 50 MG TAB PO SCH (11:08)
[2021-01-12] MEDS: CYANOCOBALAMIN 500 MCG TABLET (VITAMIN B-12) PO SCH (12:12)
--- NOTE | 2021-01-12 12:57 | Hospitalist Progress Note ---
Date of Service January 12, 2021 Assessment & Plan (1) ACS (acute coronary syndrome): Plan: Presented with STEMI, sent to labor supervisor. Distal LAD lesion but no intervention was able to be perfromed. Continues on medical management including heparin, aspirin, atorvastatin, Plavix, Zetia, and BB. Carvedilol now at 6.25 BID in attempt to wean her off her home clonidine. BP and pulse appear stable. Has a known h/o CAD, h/o CVA and h/o Takotsobus cardiomyopathy. Echo reviewed with noted reduced EF compared to EF 60% in August 2020 (2) Ischemic cardiomyopathy: Plan: lisinopril added to regimen, cont to utilize coreg and wean her off clonidine prior to discharge. (3) History of cardioembolic cerebrovascular accident (CVA): Plan: recent admission for stroke symptoms without evidence of acute stroke. She has a h/o several strokes in the past as well as episodes of short term memory loss. Cont Lipitor and Plavix per home regimen. (4) CKD (chronic kidney disease), stage III: Plan: Creatinine is around her baseline. Cont current medical therapy, renally dose meds as needed. (5) Diabetes mellitus type 2, controlled, with complications: Plan: Glucose in control on current insulin regimen. Cont current regimen, holding outpatient glipizide and repaglinide. (6) DVT prophylaxis: Plan: Heparin drip was auto stopped this afternoon. Will restart this now. Full Code Dispo-likely to home in am. Enriqueta Helm DO [facility] Hospitalist Admission and Anticipated Discharge Date Admission Date: January 11, 2021 Subjective 65 yo STEMI patient with distal LAD lesion. No PCI intervention Continues on medical therapy including nitro and remains chest pain free Tolerating PO Myron SOB, palpitations or other issues. Transferred out of ICU to tele today Review of Systems Review of Systems: At least ten systems were reviewed and negative except as indicated in HPI above. Physical Exam Physical Exam: CONSTITUTIONAL: WNWD, vitals as above, generally well- appearing EYES: normal conjunctivae, no scleral icterus ENT: external ear and nose normal, oropharynx clear NECK: trachea midline RESPIRATORY: clear to auscultation bilaterally, no crackles, rales or wheezes, normal respiratory effort CARDIOVASCULAR: regular rate and rhythm, S1 and 2 heard without murmurs, gallops or rubs, no JVD, no peripheral edema CHEST: inspection of chest was normal GASTROINTESTINAL: normal bowel sounds, soft, nontender, ND no guarding MUSCULOSKELETAL: strength 5/5 throughout, head is normocephalic and atraumatic, neck supple, normal palpation of chest wall without tenderness SKIN: warm and dry, radial cath site with slight ecchymosis NEUROLOGIC: CN 2-12 grossly intact, normal cognition, normal speech, no tremor, no gross focal deficits. PSYCHIATRIC: alert cooperative and oriented to person, place and time. Euthymic mood, makes good eye contact, language grossly intact, recent and remote memory grossly intact. Results & Data Results & Data ([facility]) Vital Signs (Past 12 Hours) Vital Signs Temp Pulse Pulse Resp BP BP Pulse Ox 01/12/21 11:47 79 01/12/21 11:44 36.7 C 74 16 113/74 97 01/12/21 11:05 106/65 01/12/21 11:01 73 127/71 98 01/12/21 10:00 75 20 93 01/12/21 09:12 89 94 01/12/21 08:06 92 H 26 H 144/89 H 98 01/12/21 08:00 36.7 C 85 01/12/21 07:06 86 29 H 145/90 H 93 01/12/21 01:06 88 22 140/90 94 Laboratory Results Short CBC 01/12/21 Range/Units 04:48 WBC 11.70 H (4.8-10.8) K/uL Hgb 10.8 L (12.0-16.0) g/dL Hct 34.5 L (37-47) % Plt Count 197 (130-400) K/uL BMP 01/12/21 04:48 Sodium 140 Potassium 4.5 Chloride 109 H Carbon Dioxide 24 BUN 13 Creatinine 1.08 Glucose 157 H Calcium 8.6 Cardiac Enzymes 01/11/21 01/11/21 01/12/21 Range/Units 15:13 19:01 04:48 Troponin I 10.600 H* 10.000 H* 5.990 H* (0-0.045) ng/ml Medications Administered Current Inpatient Medications Aspirin (Aspirin 81 Mg Ectab) [facility] Stop: 02/10/21 08:59 Last Admin: 01/12/21 08:04 Dose: 81 mg Documented by: Atorvastatin Calcium (Atorvastatin 40 Mg Tab) 80 mg PO QPM [facility] Stop: 02/10/21 20:59 Last Admin: 01/11/21 20:16 Dose: 80 mg Documented by: Carvedilol (Carvedilol 6.25 Mg Tab) 6.25 mg PO BID [facility] Stop: 02/12/21 08:59 Citalopram Hydrobromide (Citalopram 20 Mg Tab) 20 mg PO HS [facility] Stop: 02/10/21 20:59 Last Admin: 01/11/21 20:16 Dose: 20 mg Documented by: Clopidogrel Bisulfate (Clopidogrel Bisulfate 75 Mg Tab) 75 mg PO DAILY [facility] Stop: 02/10/21 08:59 Last Admin: 01/12/21 08:05 Dose: 75 mg Documented by: Cyanocobalamin (Cyanocobalamin 500 Mcg Tablet (Vitamin B-12)) 500 mcg PO QDL [facility] Stop: 02/10/21 11:29 Last Admin: 01/12/21 12:12 Dose: 500 mcg Documented by: Dextrose (Dextrose 50% 50 Ml Syringe) 25 - 50 ml IV UD PRN; Protocol PRN Reason: Hypoglycemia Protocol Stop: 02/10/21 02:59 Ezetimibe (Ezetimibe 10 Mg Tablet) 10 mg PO HS [facility] Stop: 02/10/21 20:59 Last Admin: 01/11/21 20:16 Dose: 10 mg Documented by: Enoxaparin Sodium (Enoxaparin Inj 40 Mg/0.4 Ml Syr) 40 mg SQ QAM [facility] Stop: 02/12/21 08:59 Folic Acid (Folic Acid 400 Mcg Tab) 800 mcg PO QDL [facility] Stop: 02/10/21 11:29 Last Admin: 01/12/21 11:08 Dose: 800 mcg Documented by: Glucagon (Glucagon For Inj 1 Mg Vial) 1 mg IM UD PRN; Protocol PRN Reason: Hypoglycemia Protocol Stop: 02/10/21 02:59 Glucose (Glucose 40% Gel 15 Gm Tube) 15 - 30 gm PO UD PRN; Protocol PRN Reason: Hypoglycemia Protocol Stop: 02/10/21 02:59 Glucose (Glucose 10 Tabs/Tube) 4 - 8 tabs PO UD PRN; Protocol PRN Reason: Hypoglycemia Protocol Stop: 02/10/21 02:59 Heparin Sodium/Dextrose (Heparin Sodium/Dextrose) 25,000 units in 500 mls @ 21 mls/hr IV .[id number] [facility]; Protocol Stop: 01/12/21 15:00 Last Titration: 01/12/21 08:15 Dose: 1,050 units/hr, 21 mls/hr Documented by: Insulin Aspart (Insulin Aspart 100 Units/Ml 3 Ml Pen) 0 units SC ACHS [facility] Stop: 02/10/21 07:29 Last Admin: 01/12/21 12:13 Dose: 6 units Documented by: Insulin Glargine (Insulin Glargine Solostar 100 Units/Ml 3 Ml Pen) 10 units SC BID [facility] Stop: 02/10/21 20:59 Last Admin: 01/12/21 08:12 Dose: 10 units Documented by: Levothyroxine Sodium (Levothyroxine Sodium 100 Mcg Tablet) 100 mcg PO DAILYBB [facility] Stop: 02/10/21 06:29 Last Admin: 01/12/21 08:02 Dose: 100 mcg Documented by: Lisinopril (Lisinopril 10 Mg Tab) 10 mg PO QAM [facility] Stop: 02/11/21 08:59 Last Admin: 01/12/21 08:02 Dose: 10 mg Documented by: Magnesium Oxide (Magnesium Oxide 400 Mg Tab) 400 mg PO QPM [facility] Stop: 02/11/21 20:59 Miscellaneous (Carbohydrates For Hypoglycemia ) 15 - 30 gm PO UD PRN PRN Reason: Hypoglycemia Treatment Stop: 02/10/21 02:59 Miscellaneous Information (Pharmacy Glycemic Mgmt Consult) 1 ea N/A UD PRN PRN Reason: Consult Stop: 02/10/21 12:20 Multivitamins/Minerals (Cerovite Adv Formula Tab) 1 tab PO QAM [facility] Stop: 02/10/21 08:59 Last Admin: 01/12/21 08:04 Dose: 1 tab Documented by: Nitroglycerin (Nitroglycerin Sl 0.4 Mg/Tab Tab) 0.4 mg SL PRN PRN PRN Reason: Chest Pain Stop: 02/10/21 00:24 Nitroglycerin (Nitroglycerin 2% Ointment 30gm Tube) 1 inch EXT Q6H [facility] Stop: 02/11/21 09:59 Last Admin: 01/12/21 10:49 Dose: 1 inch Documented by: Nystatin/Triamcinolone Acetonide (Nystatin/Triamcin Cr 15 Gm Tube) 1 appln EXT BID PRN PRN Reason: Skin Irritation Stop: 02/10/21 02:31 Pyridoxine HCl (Pyridoxine Hcl 50 Mg Tab) 100 mg PO QDL [facility] Stop: 02/10/21 11:29 Last Admin: 01/12/21 11:08 Dose: 100 mg Documented by:
--- NOTE | 2021-01-12 13:29 | Electrocardiogram Report ---
Test Reason : Blood Pressure : / mmHG Vent. Rate : 088 BPM Atrial Rate : 088 BPM P-R Int : 198 ms QRS Dur : 084 ms QT Int : 358 ms P-R-T Axes : 066 -13 025 degrees QTc Int : 433 ms Normal sinus rhythm Minor ST elevation in Anterolateral leads Poor R wave progression, consider anterior NV vs. lead placement vs. LVH Abnormal ECG When compared with ECG of 11-JAN-2021 03:50, No significant change Confirmed by Ramon Hebert ([id number]) on 01/12/2021 1:28:56 PM Referred By: REFERRED SELF Confirmed By:Ramon Hebert
[2021-01-12] MEDS ORDERED: MAGNESIUM OXIDE 400 MG TAB PO SCH (21:00)
[2021-01-12] MEDS ORDERED: HEPARIN SODIUM/DEXTROSE 25,000 UNITS/500 ML BAG IV SCH (21:45)
[2021-01-12] MEDS: ATORVASTATIN 40 MG TAB PO SCH (22:25)
[2021-01-12] MEDS: EZETIMIBE 10 MG TABLET PO SCH (22:25)
[2021-01-12] MEDS: CITALOPRAM 20 MG TAB PO SCH (23:40)
[2021-01-13] MEDS: NITROGLYCERIN 2% OINTMENT 30GM TUBE EXT SCH ×2 (04:59→10:18)
[2021-01-13] MEDS: LEVOTHYROXINE SODIUM 100 MCG TABLET PO SCH (06:09)
[2021-01-13 06:31] LABS: Basophils # (auto) 0.03 K/uL (0-0.2); Basophils % (auto) 0.3 %; Eosinophils # (auto) 0.32 K/uL (0-0.5); Eosinophils % (auto) 3.5 %; Hematocrit (blood only) 35.9 % (37-47); Hemoglobin 11.4 g/dL (12.0-16.0); Immature Granulocytes # (auto) 0.01 K/uL (0.00-0.02); Immature Granulocytes % (auto) 0.1 %; Lymphocytes # (auto) 2.34 K/uL (1.2-3.4); Lymphocytes % (auto) 25.4 %; Mean Corpuscular Hemoglobin 26.3 pg (25-34); Mean Corpuscular Hgb Conc 31.8 g/dL (32-36); Mean Corpuscular Volume 82.7 fL (80-100); Mean Platelet Volume 10.5 fL (7.4-10.4); Monocytes # (auto) 0.68 K/uL (0.11-0.59); Monocytes % (auto) 7.4 %; Neutrophils # (auto) 5.85 K/uL (1.4-6.5); Neutrophils % (auto) 63.3 %; Platelet Count 180 K/uL (130-400); RDW Coefficient of Variation 17.1 % (11.5-14.5); RDW Standard Deviation 52.3 fL (36.4-46.3); Red Blood Count 4.34 M/uL (4.2-5.4); White Blood Count 9.23 K/uL (4.8-10.8)
[2021-01-13 06:49] LABS: Partial Thromboplastin Ratio 1.4; Partial Thromboplastin Time 36.2 Seconds (21.0-31.0)
[2021-01-13] MEDS ORDERED: HEPARIN SOD (PORCINE) 1000 UNIT/ML IV ONE ×2 (07:30→07:32)
[2021-01-13] MEDS: INSULIN ASPART 100 UNITS/ML 3 ML PEN SC SCH ×2 (07:58→12:21)
[2021-01-13] MEDS: INSULIN GLARGINE SOLOSTAR 100 UNITS/ML 3 ML PEN SC SCH (07:58)
[2021-01-13] MEDS: ASPIRIN 81 MG ECTAB PO SCH (08:01)
[2021-01-13] MEDS: lisinopril 10 MG TAB PO SCH (08:01)
[2021-01-13] MEDS: CEROVITE ADV FORMULA TAB PO SCH (08:01)
--- NOTE | 2021-01-13 08:04 | Electrocardiogram Report ---
Test Reason : Blood Pressure : / mmHG Vent. Rate : 085 BPM Atrial Rate : 085 BPM P-R Int : 192 ms QRS Dur : 088 ms QT Int : 452 ms P-R-T Axes : 067 -10 171 degrees QTc Int : 537 ms Normal sinus rhythm Possible evolving Anterior infarct (cited on or before 12-JAN-2021) Marked T-wave inversion in Anterolateral leads , consider ischemia Prolonged QT Abnormal ECG When compared with ECG of 11-JAN-2021 16:57, Serial changes of Anterior infarct Present Confirmed by Ramon Hebert ([id number]) on 01/13/2021 8:04:13 AM Referred By: REFERRED SELF Confirmed By:Ramon Hebert
[2021-01-13] MEDS ORDERED: carvediloL 6.25 MG TAB PO SCH (09:00)
[2021-01-13] MEDS ORDERED: ENOXAPARIN INJ 40 MG/0.4 ML SYR SQ SCH (09:00)
--- NOTE | 2021-01-13 10:04 | Hospitalist Progress Note ---
Date of Service January 13, 2021 Assessment & Plan (1) ACS (acute coronary syndrome): Plan: Presented with STEMI, sent to research laboratory specialist. Distal LAD lesion but no intervention was able to be performed. Continues on medical management including heparin, aspirin, atorvastatin, Plavix, Zetia, and BB. Carvedilol now at 6.25 BID in attempt to wean her off her home clonidine. BP and pulse appear stable. Has a known h/o CAD, h/o CVA and h/o Takotsobus cardiomyopathy. Echo reviewed with noted reduced EF compared to EF 60% in August 2020 Discharging to home today (2) Ischemic cardiomyopathy: Plan: lisinopril added to regimen, cont to utilize coreg and wean her off clonidine prior to discharge Daily weights, strict I's and O's - 100kg, pt euvolemic (3) Hypertension: Plan: Bp elevated this a.m. 158/71 cardiology working with weaning off clonidine in favor of coreg, lisinopril currently lisinopril is only 10mg, home dose is 40mg (4) Hypomagnesemia: Plan: mag 1.6 on 01/12 repleted repeat mag today, keep > 2.0 (5) History of cardioembolic cerebrovascular accident (CVA): Plan: recent admission for stroke symptoms without evidence of acute stroke. She has a h/o several strokes in the past as well as episodes of short term memory loss. Cont Lipitor and Plavix per home regimen. No physical deficits (6) CKD (chronic kidney disease), stage III: Plan: Baseline cr 1.1-1.3 Cont current medical therapy, renally dose meds as needed. (7) Diabetes mellitus type 2, controlled, with complications: Plan: Last A1c 6.3 on 12/07/20 and 6.5 on admission on 01/11 Glucose in control on current insulin regimen. Cont current regimen, holding outpatient metformin, glipizide and repaglinide. (8) DVT prophylaxis: Plan: Heparin drip Full Code Dispo-likely to home today when cleared by cardiology Pt was seen and examined in collaboration with Dr. Contreras, please see addendum Please contact via [place] text with questions or concerns to Marcela Diaz). Admission and Anticipated Discharge Date Admission Date: January 11, 2021 Supervising Physician Co-Signing Physician Notes Patient is seen and examined at bedside Denies any recurrence of chest pain. Currently on IV heparin Also denies any dyspnea, dizziness, nausea, abdominal pain On exam patient is obese, no apparent distress, normocephalic atraumatic, EOMI, lungs were clear to auscultation, normal breath sounds, S1-S2, no murmur, no pedal edema, abdomen soft, nontender, normal bowel sounds, alert, awake, oriented, grossly no focal deficits STEMI S/P Cath distal LAD occlusion but no intervention could be performed Medical management as per cardiology Appreciate cardiology input Continue aspirin, atorvastatin, Plavix, beta-minna IV heparin discontinued Needs follow-up with cardiology upon discharge I personally reviewed the record. Patient is interviewed and examined at bedside. Patient's care is coordinated with Marcela Luo PA-C. Please refer to the documentation above for details of patient's presentation and for discussion of other issues. Subjective 65 yo STEMI patient with distal LAD lesion. Seen and examined in room 253-2 No PCI intervention She is ready to go home. She denies any chest pain, shortness with, palpitations, fever, chills, nausea, vomiting. She is tolerating her diet. She is ambulating to and from the bathroom and around the room without difficulty. Denies any weakness. Review of Systems Review of Systems: All systems reviewed & are unremarkable except as noted in HPI & below Physical Exam Physical Exam: Gen: WD/WN, NAD, A&O x3 HEENT: Normocephalic, atraumatic, conjunctivae moist, sclerae anicteric, mucous membranes moist. Lung: Clear to Auscultation bilaterally, no wheezes/rales/rhonchi Heart: Regular rate, regular rhythm, no murmurs, rubs, or gallops Abdomen: Soft, NT, ND +BS x 4 Extremities: No edema Skin: Warm, no rash, negative turgor. Results & Data Results & Data ([facility]) Vital Signs (Past 12 Hours) Vital Signs Temp Pulse Pulse Resp BP Pulse Ox 01/13/21 07:54 84 01/13/21 07:39 36.7 C 59 L 18 158/71 H 96 01/13/21 04:00 37.0 C 87 18 144/88 H 90 01/12/21 23:57 84 01/12/21 23:00 37.3 C 85 18 143/85 H 92 Laboratory Results Short CBC 01/13/21 Range/Units 06:12 WBC 9.23 (4.8-10.8) K/uL Hgb 11.4 L (12.0-16.0) g/dL Hct 35.9 L (37-47) % Plt Count 180 (130-400) K/uL Medications Administered Current Inpatient Medications Aspirin (Aspirin 81 Mg Ectab) 81 mg PO QAM [facility] Stop: 02/10/21 08:59 Last Admin: 01/13/21 08:01 Dose: 81 mg Documented by: Atorvastatin Calcium (Atorvastatin 40 Mg Tab) 80 mg PO QPM [facility] Stop: 02/10/21 20:59 Last Admin: 01/12/21 22:25 Dose: 80 mg Documented by: Carvedilol (Carvedilol 6.25 Mg Tab) 6.25 mg PO BID [facility] Stop: 02/12/21 08:59 Last Admin: 01/13/21 08:00 Dose: 6.25 mg Documented by: Citalopram Hydrobromide (Citalopram 20 Mg Tab) 20 mg PO [facility] Stop: 02/10/21 20:59 Last Admin: 01/12/21 23:40 Dose: 20 mg Documented by: Clopidogrel Bisulfate (Clopidogrel Bisulfate 75 Mg Tab) 75 mg PO DAILY [facility] Stop: 02/10/21 08:59 Last Admin: 01/12/21 08:05 Dose: 75 mg Documented by: Cyanocobalamin (Cyanocobalamin 500 Mcg Tablet (Vitamin B-12)) 500 mcg PO QDL [facility] Stop: 02/10/21 11:29 Last Admin: 01/12/21 12:12 Dose: 500 mcg Documented by: Dextrose (Dextrose 50% 50 Ml Syringe) 25 - 50 ml IV UD PRN; Protocol PRN Reason: Hypoglycemia Protocol Stop: 02/10/21 02:59 Ezetimibe (Ezetimibe 10 Mg Tablet) 10 mg PO [facility] Stop: 02/10/21 20:59 Last Admin: 01/12/21 22:25 Dose: 10 mg Documented by: Folic Acid (Folic Acid 400 Mcg Tab) 800 mcg PO QDL [facility] Stop: 02/10/21 11:29 Last Admin: 01/12/21 11:08 Dose: 800 mcg Documented by: Glucagon (Glucagon For Inj 1 Mg Vial) 1 mg IM UD PRN; Protocol PRN Reason: Hypoglycemia Protocol Stop: 02/10/21 02:59 Glucose (Glucose 40% Gel 15 Gm Tube) 15 - 30 gm PO UD PRN; Protocol PRN Reason: Hypoglycemia Protocol Stop: 02/10/21 02:59 Glucose (Glucose 10 Tabs/Tube) 4 - 8 tabs PO UD PRN; Protocol PRN Reason: Hypoglycemia Protocol Stop: 02/10/21 02:59 Heparin Sodium/Dextrose (Heparin Sodium/Dextrose) 25,000 units in 500 mls @ 24 mls/hr IV .[id number] [facility]; Protocol Stop: 02/11/21 21:44 Last Titration: 01/13/21 07:15 Dose: 1,200 units/hr, 24 mls/hr Documented by: Insulin Aspart (Insulin Aspart 100 Units/Ml 3 Ml Pen) 0 units SC ACHS [facility] Stop: 02/10/21 07:29 Last Admin: 01/13/21 07:58 Dose: 6 units Documented by: Insulin Glargine (Insulin Glargine Solostar 100 Units/Ml 3 Ml Pen) 10 units SC BID [facility] Stop: 02/10/21 20:59 Last Admin: 01/13/21 07:58 Dose: 10 units Documented by: Levothyroxine Sodium (Levothyroxine Sodium 100 Mcg Tablet) 100 mcg PO DAILYBB [facility] Stop: 02/10/21 06:29 Last Admin: 01/13/21 06:09 Dose: 100 mcg Documented by: Lisinopril (Lisinopril 10 Mg Tab) 10 mg PO QAM [facility] Stop: 02/11/21 08:59 Last Admin: 01/13/21 08:01 Dose: 10 mg Documented by: Magnesium Oxide (Magnesium Oxide 400 Mg Tab) 400 mg PO QPM [facility] Stop: 02/11/21 20:59 Last Admin: 01/12/21 22:35 Dose: 400 mg Documented by: Miscellaneous (Carbohydrates For Hypoglycemia ) 15 - 30 gm PO UD PRN PRN Reason: Hypoglycemia Treatment Stop: 02/10/21 02:59 Miscellaneous Information (Pharmacy Glycemic Mgmt Consult) 1 ea N/A UD PRN PRN Reason: Consult Stop: 02/10/21 12:20 Multivitamins/Minerals (Cerovite Adv Formula Tab) 1 tab PO QAM [facility] Stop: 02/10/21 08:59 Last Admin: 01/13/21 08:01 Dose: 1 tab Documented by: Nitroglycerin (Nitroglycerin Sl 0.4 Mg/Tab Tab) 0.4 mg SL PRN PRN PRN Reason: Chest Pain Stop: 02/10/21 00:24 Nitroglycerin (Nitroglycerin 2% Ointment 30gm Tube) 1 inch EXT Q6H [facility] Stop: 02/11/21 09:59 Last Admin: 01/13/21 04:59 Dose: 1 inch Documented by: Nystatin/Triamcinolone Acetonide (Nystatin/Triamcin Cr 15 Gm Tube) 1 appln EXT BID PRN PRN Reason: Skin Irritation Stop: 02/10/21 02:31 Pyridoxine HCl (Pyridoxine Hcl 50 Mg Tab) 100 mg PO QDL [facility] Stop: 02/10/21 11:29 Last Admin: 01/12/21 11:08 Dose: 100 mg Documented by: (1) Hypertension Hypertension type: unspecified Qualified Code(s): I10 - Essential (primary) hypertension
[2021-01-13] MEDS: CYANOCOBALAMIN 500 MCG TABLET (VITAMIN B-12) PO SCH (10:19)
[2021-01-13] MEDS: PYRIDOXINE HCL 50 MG TAB PO SCH (10:19)
[2021-01-13] MEDS: FOLIC ACID 400 MCG TAB PO SCH (10:19)
[2021-01-13 11:16] VITALS: TEMP 97.5; O2SAT 93
--- NOTE | 2021-01-13 11:41 | Pharmacy Report ---
Pharmacy Glycemic Short Note 2 - Date of Service January 13, 2021 - Glycemic Short BSG Results (Last 24 hours): 01/12/21 01/12/21 01/13/21 16:24 20:11 07:49 POC Glucose 108 H 115 H 144 H 01/13/21 11:23 POC Glucose 182 H OUTPATIENT ANTIDIABETIC REGIMEN: * Repaglinide 2mg before breakfast and evening meal * Glipizide 2.5mg PO daily * Metformin 1gm PO BID * HbA1c: 6.5% (01/11/21) ASSESSMENT: 01/13/21: * Ms Lemon received a total of 36 units of insulin yesterday, with reasonably well-controlled BSGs. * 20 units of basal insulin with Lantus * 16 units of bolus insulin with Novolog * Pt was transferred to medical floor yesterday. * No changes required at this time. 01/11 * Type 2 diabetic admitted with ACS / UA * Currently admitted to ICU, receiving Nitroglycerin and Heparin infusions, DAPT and beta-blockade * Pharmacy auto-consult generated per ICU hyperglycemia protocol * Will adjust current basal/bolus SQ regimen to weight based "moderate" stress dosing of Novolog while increasing basal insulin dose to "low" dose given only mild elevation in fasting BSG this AM PLAN FOR INPATIENT GLYCEMIC CONTROL: * Hold outpatient oral diabetes medications * Basal insulin * Lantus 10 units SQ BID * Bolus insulin * NovoLog per scale ACHS or Q6hrs while NPO * Goal Range: Low 110 mg/dL - High 140 mg/dL * Correction Factor: 25 mg/dL/unit * Nutritional / Prandial insulin per carb ratio of 1 unit per 8 grams CHO consumed PLAN FOR DISCHARGE: * Given A1c 6.5% is at goal, would recommend resuming out-pt regimen upon d ischarge if no contraindications present.
--- NOTE | 2021-01-13 12:16 | Cardiology Progress Note ---
Date of Service January 13, 2021 Assessment & Plan (1) ACS (acute coronary syndrome): (2) History of cardioembolic cerebrovascular accident (CVA): (3) Diabetes mellitus type 2, controlled, with complications: (4) Coronary artery disease: Plan: The patient is clinically stable and I believe ready to be discharged. I will stop her heparin this morning. She should be discharged on dual antiplatelet therapy. She should not be discharged home on clonidine. She should be discharged home on her current dose of carvedilol and lisinopril. I will arrange follow-up with our office. Admission and Anticipated Discharge Date Admission Date: January 11, 2021 Subjective The patient had a uneventful night. She is anxious to go home. Review of Systems Review of Systems: Review of Systems: See HPI for pertinent positives. All other 10 point review of systems are negative. Physical Exam Physical Exam: General: no acute distress and stated age Head: normocephalic, no masses, lesions, tenderness or abnormalities Eyes: conjunctiva are pink and non-injected, sclera clear Neck: supple, no adenopathy, no bruits, normal jugular venous pulse, no hepat ojugular reflux Chest: normal shape and normal respiratory effort Lungs: clear to auscultation and percussion Cardiac Exam: - regular rate & rhythm, no murmurs gallops or rubs - normal S1, normal S2 Pulses: 2(+) throughout Abdomen: abdomen soft, non-tender, no abnormal masses and no hepatosplenomegaly Musculoskeletal: no gait disturbance, no joint inflammation, no deforming arthritis Extremities: no edema and no cyanosis Neuro: grossly normal exam Results & Data ([facility]) Vital Signs (Past 12 Hours) Vital Signs Temp Pulse Pulse Resp BP Pulse Ox 01/13/21 11:15 36.4 C L 80 19 124/76 93 01/13/21 07:54 84 01/13/21 07:39 36.7 C 59 L 18 158/71 H 96 01/13/21 04:00 37.0 C 87 18 144/88 H 90 Laboratory Results Laboratory Results - last 24 hr 01/12/21 01/12/21 01/13/21 16:24 20:11 06:12 WBC RBC Hgb Hct MCV MCH MCHC RDW Std Deviation RDW Coeff of Doreen Plt Count MPV Immature Gran % (Auto) Neut % (Auto) Lymph % (Auto) Stark % (Auto) Eos % (Auto) Baso % (Auto) Neut # (Auto) Lymph # (Auto) Stark # (Auto) Eos # (Auto) Baso # (Auto) Immature Gran # (Auto) APTT 36.2 H PTT Ratio 1.4 POC Glucose 108 H 115 H Magnesium 01/13/21 01/13/21 01/13/21 06:12 07:49 11:23 WBC 9.23 RBC 4.34 Hgb 11.4 L Hct 35.9 L MCV 82.7 MCH 26.3 MCHC 31.8 L RDW Std Deviation 52.3 H RDW Coeff of Doreen 17.1 H Plt Count 180 MPV 10.5 H Immature Gran % (Auto) 0.1 Neut % (Auto) 63.3 Lymph % (Auto) 25.4 Stark % (Auto) 7.4 Eos % (Auto) 3.5 Baso % (Auto) 0.3 Neut # (Auto) 5.85 Lymph # (Auto) 2.34 Stark # (Auto) 0.68 H Eos # (Auto) 0.32 Baso # (Auto) 0.03 Immature Gran # (Auto) 0.01 APTT PTT Ratio POC Glucose 144 H 182 H Magnesium 01/13/21 11:30 WBC RBC Hgb Hct MCV MCH MCHC RDW Std Deviation RDW Coeff of Doreen Plt Count MPV Immature Gran % (Auto) Neut % (Auto) Lymph % (Auto) Stark % (Auto) Eos % (Auto) Baso % (Auto) Neut # (Auto) Lymph # (Auto) Stark # (Auto) Eos # (Auto) Baso # (Auto) Immature Gran # (Auto) APTT PTT Ratio POC Glucose Magnesium 2.2 Medications Administered Current Inpatient Medications Aspirin (Aspirin 81 Mg Ectab) 81 mg PO QAM NEGRA Stop: 02/10/21 08:59 Last Admin: 01/13/21 08:01 Dose: 81 mg Documented by: Atorvastatin Calcium (Atorvastatin 40 Mg Tab) 80 mg PO QPM NEGRA Stop: 02/10/21 20:59 Last Admin: 01/12/21 22:25 Dose: 80 mg Documented by: Carvedilol (Carvedilol 6.25 Mg Tab) 6.25 mg PO BID NEGRA Stop: 02/12/21 08:59 Last Admin: 01/13/21 08:00 Dose: 6.25 mg Documented by: Citalopram Hydrobromide (Citalopram 20 Mg Tab) 20 mg PO HS [facility] Stop: 02/10/21 20:59 Last Admin: 01/12/21 23:40 Dose: 20 mg Documented by: Clopidogrel Bisulfate (Clopidogrel Bisulfate 75 Mg Tab) 75 mg PO DAILY NEGRA Stop: 02/10/21 08:59 Last Admin: 01/12/21 08:05 Dose: 75 mg Documented by: Cyanocobalamin (Cyanocobalamin 500 Mcg Tablet (Vitamin B-12)) 500 mcg PO QDL NEGRA Stop: 02/10/21 11:29 Last Admin: 01/13/21 10:19 Dose: 500 mcg Documented by: Dextrose (Dextrose 50% 50 Ml Syringe) 25 - 50 ml IV UD PRN; Protocol PRN Reason: Hypoglycemia Protocol Stop: 02/10/21 02:59 Ezetimibe (Ezetimibe 10 Mg Tablet) 10 mg PO HS [facility] Stop: 02/10/21 20:59 Last Admin: 01/12/21 22:25 Dose: 10 mg Documented by: Folic Acid (Folic Acid 400 Mcg Tab) 800 mcg PO QDL NEGRA Stop: 02/10/21 11:29 Last Admin: 01/13/21 10:19 Dose: 800 mcg Documented by: Glucagon (Glucagon For Inj 1 Mg Vial) 1 mg IM UD PRN; Protocol PRN Reason: Hypoglycemia Protocol Stop: 02/10/21 02:59 Glucose (Glucose 40% Gel 15 Gm Tube) 15 - 30 gm PO UD PRN; Protocol PRN Reason: Hypoglycemia Protocol Stop: 02/10/21 02:59 Glucose (Glucose 10 Tabs/Tube) 4 - 8 tabs PO UD PRN; Protocol PRN Reason: Hypoglycemia Protocol Stop: 02/10/21 02:59 Insulin Aspart (Insulin Aspart 100 Units/Ml 3 Ml Pen) 0 units SC ACHS [facility] Stop: 02/10/21 07:29 Last Admin: 01/13/21 07:58 Dose: 6 units Documented by: Insulin Glargine (Insulin Glargine Solostar 100 Units/Ml 3 Ml Pen) 10 units SC BID [facility] Stop: 02/10/21 20:59 Last Admin: 01/13/21 07:58 Dose: 10 units Documented by: Levothyroxine Sodium (Levothyroxine Sodium 100 Mcg Tablet) 100 mcg PO DAILYBB [facility] Stop: 02/10/21 06:29 Last Admin: 01/13/21 06:09 Dose: 100 mcg Documented by: Lisinopril (Lisinopril 10 Mg Tab) 10 mg PO QAM [facility] Stop: 02/11/21 08:59 Last Admin: 01/13/21 08:01 Dose: 10 mg Documented by: Magnesium Oxide (Magnesium Oxide 400 Mg Tab) 400 mg PO QPM [facility] Stop: 02/11/21 20:59 Last Admin: 01/12/21 22:35 Dose: 400 mg Documented by: Miscellaneous (Carbohydrates For Hypoglycemia ) 15 - 30 gm PO UD PRN PRN Reason: Hypoglycemia Treatment Stop: 02/10/21 02:59 Miscellaneous Information (Pharmacy Glycemic Mgmt Consult) 1 ea N/A UD PRN PRN Reason: Consult Stop: 02/10/21 12:20 Multivitamins/Minerals (Cerovite Adv Formula Tab) 1 tab PO QAM [facility] Stop: 02/10/21 08:59 Last Admin: 01/13/21 08:01 Dose: 1 tab Documented by: Nitroglycerin (Nitroglycerin Sl 0.4 Mg/Tab Tab) 0.4 mg SL PRN PRN PRN Reason: Chest Pain Stop: 02/10/21 00:24 Nitroglycerin (Nitroglycerin 2% Ointment 30gm Tube) 1 inch EXT Q6H [facility] Stop: 02/11/21 09:59 Last Admin: 01/13/21 10:18 Dose: 1 inch Documented by: Nystatin/Triamcinolone Acetonide (Nystatin/Triamcin Cr 15 Gm Tube) 1 appln EXT BID PRN PRN Reason: Skin Irritation Stop: 02/10/21 02:31 Pyridoxine HCl (Pyridoxine Hcl 50 Mg Tab) 100 mg PO QDL [facility] Stop: 02/10/21 11:29 Last Admin: 01/13/21 10:19 Dose: 100 mg Documented by:
[2021-01-13 12:47] LABS: Appearance Urine Clear (Clear); Bacteria Urine Automated 4+ (Negative); Bilirubin Urine Negative (Negative); Blood Urine Negative (Negative); Color Urine Yellow; Epithelial Cell Urine Auto >30 /lpf (0-5); Glucose Urine UA Negative (Negative); Ketones Urine Negative (Negative); Leukocyte Esterase Urine Trace (Negative); Nitrite Urine Negative (Negative); Protein Urine Negative (Negative); RBC Urine Automated 0-4 /hpf (0-4); Specific Gravity Urine 1.007 (1.000-1.030); Urobilinogen Urine Negative (Negative)
[2021-01-13 13:11] VITALS: BP 125/78; PULSE 78
--- NOTE | 2021-01-13 13:25 | Discharge Summary ---
Date of Service January 13, 2021 Admission HPI Per Admitting Provider HISTORY OF PRESENT ILLNESS: A 65-year-old female with a past medical history significant for type 2 diabetes, hyperlipidemia, hypothyroidism, hyperhomocysteinemia, carotid stenosis with history of CVA, hypertension, CAD, history of Takotsubo cardiomyopathy, vitamin D deficiency, chronic kidney disease stage III, history of hirsutism, history of TIA, history of non-ST elevated KS, presents with chest pain and found to have ST elevated KS, status post emergent cardiac catheterization showing distal LAD lesion, which is not amenable to any intervention. The patient says that around 10:30 p.m., she noticed chest pain in the middle of the chest, radiating to the back, at that time, it was 10/10 in severity. Currently, still the pain is there, 5/10 in severity. No other complaints. Denies any shortness of breath or sweating, no dizziness, no headache, no blurred visions, no earache, no runny nose, no sore throat, no cough, no dysphagia. No fevers, no nausea, no abdominal pain, normal bowel and bladder movements. Otherwise, she can ambulate fine. She lives with her and currently, hemodynamically stable. Admission Exam Per Admitting Provider PHYSICAL EXAMINATION: GENERAL: The patient is obese, not in acute distress. VITAL SIGNS: Temperature 37, pulse 86, respiratory rate 18, blood pressure 136/83, oxygen 94% on 3 liters. HEENT: Head atraumatic. NECK: No JVD. No neck masses. CARDIOVASCULAR: S1 and S2 heard. Regular rate and rhythm. No murmur, no gallop. RESPIRATORY: Normal AP diameter. No accessory muscle use. No wheezing, no crackles. ABDOMEN: Soft, bowel sounds present, nontender, no distention. CENTRAL NERVOUS SYSTEM: Cranial nerves II-XII grossly intact, nonfocal. EXTREMITIES: No edema, no erythema. Right radial cardiac catheterization site obvious drainage seen. Principal Diagnosis ACS Unstable Angina Ischemic Cardiomyopathy HTN Hypomagnesemia T2DM Discharge Exam Gen: WD/WN, NAD, A&O x3 HEENT: Normocephalic, atraumatic, conjunctivae moist, sclerae anicteric, mucous membranes moist. Lung: Clear to Auscultation bilaterally, no wheezes/rales/rhonchi Heart: Regular rate, regular rhythm, no murmurs, rubs, or gallops Abdomen: Soft, NT, ND +BS x 4 Extremities: No edema Skin: Warm, no rash, negative turgor. Discharge Data Allergies Allergy/AdvReac Type Severity Reaction Status Date / Time amoxicillin [From Augmentin] AdvReac Intermediate Nausea Verified 01/11/21 00:17 clavulanic acid AdvReac Intermediate Nausea Verified 01/11/21 00:17 [From Augmentin] Consultations 01/11/21 00:26 Consult Internal Medicine Routine 01/11/21 02:32 Consult Comb Tender Routine 01/11/21 08:00 Consult Cardiology Routine Procedures Performed Operation Date: 01/10/21 23:45 Actual Procedures p Cath, Left with Cors and Vent - Tez Singh MD s Cineradiography w/Routine Exam - Tez Singh MD "Summary of Findings Heart alert was called at 11:30 PM January 10, 2021 Patient seen and evaluated in the ED and consent forms obtained at 11:50 PM January 10, 2021 The risks alternatives benefits indications therapies particularly the risk of worsening kidney dysfunction to the point of dialysis in this individual was discussed with her. She verbalized understanding and signed the consent form Procedures Left heart catheterization Coronary angiography Indication: Acute coronary syndrome Patient was brought emergently to the cardiac Nutritionists Connected to real-time hemodynamic electrical and respiratory monitoring 6 Cypriot sheath secured into the right radial artery 6 Cypriot JL 3.5 and JR4 used for left and right coronary angiography respectively 6 Cypriot JR4 was used for left ventriculography Coronary findings Right coronary system Large dominant artery The proximal RCA is free of disease The mid RCA has a 30% stenosis The distal RCA, the PDA and the PLV branches are free of disease Left coronary system The left main is of normal caliber without stenosis It trifurcates into the LAD, the ramus intermedius, and the circumflex The circumflex is a large-caliber vessel It gives off a single obtuse marginal branch There is no evidence of epicardial artery stenosis of the left circumflex or the obtuse marginal branch The ramus intermedius is a small caliber vessel without stenosis The proximal and the mid LAD as well as the diagonal branches are free of disease The very distal LAD has an occlusion that appears to be chronic. This portion of the LAD is a very small caliber vessel and not amenable to revascularization Hemodynamics as stated below Post procedure TR band was used to secure hemostasis Conclusion Severe distal LAD disease. This territory of the LAD is such a small caliber vessel and not amenable to revascularization The rest of the coronary system is unremarkable Recommendations Heparin drip for 24 to 48 hours until post peak troponin Dual antiplatelet therapy Beta-minna High intensity statin Resume SRIRAM inhibitor 24 hours post cardiac catheterization to decrease the paulie nces of worsening CKD It is a pleasure and an honor to have participated in the care of your patient Respectfully Tez Singh MD, [facility], [facility]" Ordered Studies 01/10/21 23:50 CL Cath Imgs for PACS use only Stat Diabetes Follow up A1C 6.5 Continue current outpatient regimen and follow up with PCP. Hospital Course (1) ACS (acute coronary syndrome): This is a 65-year-old female who has significant past medical history of CAD, history of Takotsubo cardiomyopathy, T2DM, HTN, HLD, hypothyroidism, hyperhomocystinemia, history of CVA, carotid stenosis, CKD stage III who presented to ED secondary to chest pain was found to have an ST elevated KS. She underwent emergent cardiac catheterization showing occlusive distal LAD disease that was not amenable to intervention. She was admitted to the ICU and placed on heparin drip as well as nitro drip due to persistent chest pain post cardiac cath. Her troponin peaked at 5.90. She was treated with medical management therapy and her carvedilol was increased to 6.25 twice daily and lisinopril decreased to 10 mg daily. Her clonidine was discontinued. She did have an echocardiogram post catheterization which revealed her to systolic function at 30 to 35%. Prior EF in August 2020 was 60%. She remained on IV heparin drip for 48 hours. On day of discharge she was medically stable, chest pain free, blood pressure was 125/78 and tolerating diabetic and heart healthy diet. Pt was treated during a high acuity time and during a current covid-19 pandemic surg. She was seen and evaluated by cardiology on day of discharge and medically cleared to go home. (2) Ischemic cardiomyopathy: (3) Hypertension: (4) Hypomagnesemia: (5) History of cardioembolic cerebrovascular accident (CVA): (6) CKD (chronic kidney disease), stage III: (7) Diabetes mellitus type 2, controlled, with complications: (8) DVT prophylaxis: Total Time Total Time Spent Total Time Spent (In Minutes): > 60 minutes was spent examining patient, performing physical exam, discussing with specialists and coordinating care to discharge to home Discharge Plan Discharge Items Patient Disposition: Home - Self-Care Reason For Visit: Heart Attack Discharge Diagnosis: Acute Coronary Syndrome Unstable Angina High blood pressure Low magnesium Activity: Per Instructions section Lifting: None Bathing: No limitations Exercise/Sports: Wait until after follow-up appointment Driving/Machine Use: Resume 3 days after discharge Non-emergency contact: Primary Care Provider, Hospitalist and [employer] Call non-emergency contact if: you have any medication questions, your symptoms worsen, your pain is not controlled, your pain is worsening and you have a fever Follow-up/Referrals: Misti Zavaleta DO [Primary Care Provider] - 01/18/21 12:30 pm (Date & Time 01/18/2021 12:30 PM Provider Misti Zavaleta DO Department [facility] ) Diet: Carb Consistent or DM2 and Heart Healthy Addtl Attending Provider Instructions: ACTIVITY RECOMMENDATIONS: Excess manipulation of the wrist should be avoided for the next 24-48 hours. * No lifting over 2 pounds (approximately a 1/2 gallon of milk) with the utilized arm for 24 hours. * No strenuous activity such as bowling or tennis for 3 days. * Keep the site of the procedure covered with a bandage for 24 hours. *You may shower the day after the procedure. Do not take a tub bath or submerge the puncture site in water for the next 3 days. *Do not operate any motorized equipment for 3 days. SPECIAL CARE INSTRUCTIONS: The site may be slightly bruised and sore following your procedure. Should any of the following occur, contact the Dr. who performed your procedure. 1. Redness/inflammation, swelling, chills, or fever, or colored drainage at procedure site within 3-7 days after your procedure. 2. Coldness, discoloration, ongoing numbness, severe pain, or swelling. Expect mild tingling of hand and tenderness at the puncture site for up to three days. If this persists beyond three days, or other symptoms develop, notify the Dr. who performed your procedure. BLEEDING: If the procedure site on your wrist begins to bleed, do not panic 1. Place 1 or 2 fingers firmly just slightly above the insertion site to stop the bleeding. You may be able to feel your pulse as you hold pressure. 2. Lift your finger after 5 minutes to see if the bleeding has stopped. 3. Once the bleeding has stopped, gently wipe the wrist area clean with a bandage. * If the bleeding from your wrist does not stop after 10 minutes, or if there is a large amount of bleeding or spurting, call 911 (do not drive yourself to the hospital). SKIN IRRITATION: * You may experience some redness and/or swelling in the area where radiation was administered. If any skin irritation occurs, please contact your family physician. FOLLOW UP VISIT: Keep any scheduled doctor appointments. MEDICATION CHANGES: You Carvedilol was increased to 6.25mg twice daily. Your lisinopril was reduced to 10mg once daily. STOP taking clonidine. It is important you continue taking aspirin 81mg daily and Plavix 75mg daily. Continue all of your other medications as prescribed. SUMMARY OF TEST RESULTS/HOSPITALIZATION: You were admitted to the hospital due to a heart attack. You underwent a cardiac catheterization and you were found to have severe blockage to one of your coronary arteries. Unfortunately due to the small caliber size of the vessel it was not amendable for stent treatment. You were treated with medical management and placed on IV heparin for approximately 48 hours. Due to a heart attack you had an ultrasound of your heart. This showed an ejection fraction of 30-35%, which is reduced. Normal is greater than 50%. You had medication adjustments to improve your overall heart function and better control blood pressure. Clonidine was weaned off and stopped. Coreg was increased for better blood pressure control. Lisinopril was decreased. You were chest pain free at time of discharge. PENDING TEST RESULTS: None RECOMMENDATIONS FOR FOLLOW-UP: Please keep all follow up appointments. You have a follow up with Dr. Misti Zavaleta on 01/18/21 @ 12:30pm. Your Cardiology Physician will schedule a follow up regarding your current hospitalization. Please take all medications as prescribed. If chest pain returns please seek ED immediately. OTHER INSTRUCTIONS: Seek medical attention if you have: * temperature above 101 * chest pain or trouble breathing * abdominal pain, nausea, vomiting * diarrhea, dark stools or bloody stools * any unanswered questions or concerns Call 911 if symptoms are severe. It has been a pleasure taking care of you. Please take care of yourself. If you have any questions regarding your recent hospitalization please contact [facility] and request Dixie Frank @ [phone]. Marcela Luo PA-C Pending Studies at Discharge: No Stand-Alone Forms: [facility] Medications and DC Order Prescriptions: New carvedilol 6.25 mg Tablet 6.25 mg PO BID Qty: 30 RF: 0 lisinopril 10 mg Tablet 10 mg PO QAM Qty: 30 RF: 0 Continued atorvastatin 80 mg Tablet 80 mg PO QPM RF: 0 citalopram [Celexa] 20 mg Tablet 20 mg PO HS RF: 0 cyanocobalamin (vitamin B-12) [Vitamin B-12] 500 mcg Tablet 500 mcg PO QDL RF: 0 nystatin-triamcinolone 100,000-0.1 unit/g-% Cream 1 applic TOPICAL BID PRN (Reason: Skin Irritation) RF: 0 nitroglycerin 0.4 mg Tablet, Sublingual 0.4 mg Sublingual DIRECTED PRN (Reason: Chest Pain) RF: 0 pyridoxine (vitamin B6) [Vitamin B-6] 100 mg Tablet 100 mg PO QDL RF: 0 folic acid 800 mcg Tablet 800 mcg PO QDL RF: 0 cholecalciferol (vitamin D3) [Vitamin D3] 2,000 unit Capsule 2,000 unit PO QAM RF: 0 Ocuvite Adult 50 Plus 250-5-1 mg Capsule 1 cap PO QAM RF: 0 levothyroxine 100 mcg tablet 100 mcg PO DAILYBB RF: 0 metformin 1,000 mg tablet 1,000 mg PO BIDM RF: 0 repaglinide 2 mg tablet 2 mg PO BID RF: 0 clopidogrel 75 mg tablet 75 mg PO DAILY RF: 0 ezetimibe 10 mg tablet 10 mg PO HS RF: 0 aspirin 81 mg Tablet,Delayed Release (Dr/Ec) 81 mg PO DAILY RF: 0 Discontinued carvedilol 3.125 mg Tablet 3.125 mg PO BIDM RF: 0 clonidine HCl 0.2 mg Tablet 0.2 mg PO BIDM RF: 0 lisinopril 40 mg tablet 40 mg PO DAILY RF: 0 Discharge Orders: Discharge Order (Routine); Ordered 01/13/21 Ordered By: Marcela Laureano/Other Patient Handouts: A1C, Managing Type 2 Diabetes, Eating Heart- Healthy Foods Admission Data Admit Date/Time: 01/11/21 00:57 Attending Provider: Rodrick Contreras Admit Provider: Tez Singh Primary Care Provider: Misti Zavaleta Other Providers: Mynor Marcelo ; Charles Sweet ; Yosi Eid ; Randy Coy ; Kevin Yao ; Brennen Zavaleta ; Tez Alfaro ; Gurvinder Carver ; Kath Christian ; Lita Templeton ; Michelle Mares ; Jamar Pugh ; Marcela Ochoa Other Interventions: Discharge Summary Assessment (RN) Last Done: 01/13/21 13:09
== END 2021-01-13 13:52 | disposition home or self-care (01) | DRG 281 ==
LOC: ED 23:16 → 1E 01-11 00:03 → CC 01-11 00:03 → SUATTDRO 01-11 00:57 → 1E 01-11 00:57 → 2W 01-12 09:56